=== PATIENT | male | born 1960 | race Caucasian/White ===

== ENCOUNTER 2017-03-17 11:57 | Inpatient (IN) | payer MEDICAID ==
[2017-03-17] MEDS ORDERED: NS 1,000 ML IV ONE ×2 (12:13→13:08)
--- NOTE | 2017-03-17 12:27 | EDPHY ---
HPI/HX/ROS/PE/MDM Narrative: CHIEF COMPLAINT: Elevated WBC HPI: The patient is a 57 y/o male arriving via EMS from [facility] due to an elevated white blood cell count. He has no complaints. He has a history of a prior TBI, alcohol abuse, hypertension, and baseline weakness. He is nonverbal on assessment, but able to communicate somewhat with gestures and nodding his head to yes/no questions. This appears to be his baseline per [facility] paperwork and staff report to EMS. He does not appear to complain of pain anywhere. Accompanying lab work shows WBC of 24. REVIEW OF SYSTEMS: Unable to obtain due to patient's difficulty communicating. PMH: TBI, encephalopathy, alcohol abuse, COPD, GERD, heart failure, weakness and atrophy, hyperlipidemia, hypertension, cognitive communication deficit. Medical records reviewed including [facility] transfer paperwork. SOCIAL HISTORY: Lives at [facility]. Not employed. History of alcohol abuse. PHYSICAL EXAM: General:Patient is alert, cachectic and very thin, in no acute distress. BP 88/ 78. Head: Band-aid on scalp ENT:Eyes are normal to inspection. ENT inspection shows very dry mucous membranes. Neck: Normal inspection. Full range of motion. Respiratory:No respiratory distress. Breath sounds normal bilaterally. Cardiovascular: Regular rate and rhythm. Strong peripheral pulses. Normal cap refill. Abdomen:The abdomen is nontender to palpation. There are no peritoneal signs. Back: Normal to inspection. No tenderness to palpation. Skin: Normal color. No rash. Warm and dry. Extremities: Normal appearance. Full range of motion. Neuro: Alert, difficult to asses orientation. Can nod yes and no to questions. Moving all extremities equally. ED Course: IV established. Labs drawn and UA ordered. Chest x-ray ordered. 1L IV NS administered for dehydration. Labs show WBC 13.84 and a normal lactic acid. Other labs are pending. Chest x- ray shows some consolidation in the left base. 1350: Spoke with hospitalist service. Dr. Pérez accepts admission for failure to thrive. MDM: History is extremely limited on this patient as he is essentially nonverbal and arrives with almost no information. He clearly is dehydrated. He will require admission for further workup and IV rehydration at minimum. - Data Points Imaging Results: Imaging Impressions Chest X-Ray 03/17/17 12:13 Impression: 1. Left basilar pneumonia versus aspiration or atelectasis. 2. Subacute right 11th rib fracture. Imaging: I viewed and interpreted images myself Laboratory Results: Laboratory Results 03/17/17 12:28 03/17/17 12:28 03/17/17 03/17/17 03/17/17 12:28 12:28 12:28 WBC RBC Hgb Hct MCV MCH MCHC RDW Plt Count MPV Neut % (Auto) Lymph % (Auto) [place] % (Auto) Eos % (Auto) Baso % (Auto) Nucleat RBC Rel Count Absolute Neuts (auto) Absolute Lymphs (auto) Absolute Monos (auto) Absolute Eos (auto) Absolute Basos (auto) Absolute Nucleated RBC Immature Gran % Immature Gran # VBG Lactic Acid Sodium 140 mEq/L mEq/L (134-144) Potassium 4.1 mEq/L mEq/L (3.5-5.2) Chloride 101 mEq/L mEq/L (97-110) Carbon Dioxide 27 mEq/l mEq/l (22-31) Anion Gap 12 mEq/L mEq/L (8-16) BUN 16 mg/dL mg/dL (7-23) Creatinine 0.6 mg/dL L mg/dL (0.7-1.3) Estimated GFR > 60 Glucose 101 mg/dL H mg/dL (70-100) Calcium 9.3 mg/dL mg/dL (8.5-10.4) Total Bilirubin 0.5 mg/dL mg/dL (0.1-1.4) Conjugated Bilirubin 0.3 mg/dL mg/dL (0.0-0.5) Unconjugated Bilirubin 0.2 mg/dL mg/dL (0.0-1.1) AST 22 IU/L IU/L (17-59) ALT 30 IU/L IU/L (21-72) Alkaline Phosphatase 124 IU/L IU/L (38-126) Total Protein 6.1 g/dL L g/dL (6.3-8.2) Albumin 3.5 g/dL g/dL (3.5-5.0) Urine Color RAFAEL Urine Appearance HAZY Urine pH 5.0 (5.0-7.5) Ur Specific [place]ard > 1.035 H (1.002-1.030) Urine Protein 1+ H (NEGATIVE) Urine Ketones NEGATIVE (NEGATIVE) Urine Blood NEGATIVE (NEGATIVE) Urine Nitrate NEGATIVE (NEGATIVE) Urine Bilirubin NEGATIVE (NEGATIVE) Urine Urobilinogen 4.0 EU H EU (0.2-1.0) Ur Leukocyte Esterase NEGATIVE (NEGATIVE) Urine RBC 5-10 /hpf H /hpf (0-3) Urine WBC 1-3 /hpf /hpf (0-3) Ur Epithelial Cells NONE SEEN /lpf /lpf (NONE-1+) Urine Mucus 4+ /lpf H /lpf (NONE-1+) Urine Glucose NEGATIVE (NEGATIVE) 03/17/17 03/17/17 12:28 12:28 WBC 13.84 10^3/uL H 10^3/uL (3.80-9.50) RBC 4.95 10^6/uL 10^6/uL (4.40-6.38) Hgb 14.9 g/dL g/dL (13.7-17.5) Hct 44.9 % % (40.0-51.0) MCV 90.7 fL fL (81.5-99.8) MCH 30.1 pg pg (27.9-34.1) MCHC 33.2 g/dL g/dL (32.4-36.7) RDW 13.9 % % (11.5-15.2) Plt Count 435 10^3/uL H 10^3/uL (150-400) MPV 10.8 fL fL (8.7-11.7) Neut % (Auto) 83.2 % H % (39.3-74.2) Lymph % (Auto) 9.4 % L % (15.0-45.0) [place] % (Auto) 6.4 % % (4.5-13.0) Eos % (Auto) 0.5 % L % (0.6-7.6) Baso % (Auto) 0.1 % L % (0.3-1.7) Nucleat RBC Rel Count 0.0 % % (0.0-0.2) Absolute Neuts (auto) 11.51 10^3/uL H 10^3/uL (1.70-6.50) Absolute Lymphs (auto) 1.30 10^3/uL 10^3/uL (1.00-3.00) Absolute Monos (auto) 0.89 10^3/uL H 10^3/uL (0.30-0.80) Absolute Eos (auto) 0.07 10^3/uL 10^3/uL (0.03-0.40) Absolute Basos (auto) 0.02 10^3/uL 10^3/uL (0.02-0.10) Absolute Nucleated RBC 0.00 10^3/uL 10^3/uL (0-0.01) Immature Gran % 0.4 % % (0.0-1.1) Immature Gran # 0.05 10^3/uL 10^3/uL (0.00-0.10) VBG Lactic Acid 2.1 mmol/L mmol/L (0.7-2.1) Sodium Potassium Chloride Carbon Dioxide Anion Gap BUN Creatinine Estimated GFR Glucose Calcium Total Bilirubin Conjugated Bilirubin Unconjugated Bilirubin AST ALT Alkaline Phosphatase Total Protein Albumin Urine Color Urine Appearance Urine pH Ur Specific Willard Urine Protein Urine Ketones Urine Blood Urine Nitrate Urine Bilirubin Urine Urobilinogen Ur Leukocyte Esterase Urine RBC Urine WBC Ur Epithelial Cells Urine Mucus Urine Glucose Medications Given: Discontinued Medications Sodium Chloride (Ns) 1,000 mls @ 0 mls/hr IV EDNOW ONE; Wide Open PRN Reason: Protocol Stop: 03/17/17 12:14 Last Admin: 03/17/17 12:13 Dose: 1,000 mls Sodium Chloride (Ns) 1,000 mls @ 0 mls/hr IV EDNOW ONE; Wide Open PRN Reason: Protocol Stop: 03/17/17 13:09 Last Admin: 03/17/17 13:37 Dose: 1,000 mls General Initial Vital Signs: Initial Vital Signs Temperature (C) 36.6 C 03/17/17 12:08 Heart Rate 90 03/17/17 12:08 Respiratory Rate 16 03/17/17 12:08 Blood Pressure 88/78 L 03/17/17 12:08 O2 Sat (%) 97 03/17/17 12:08 O2 Delivery Mode Room Air Allergies/Adverse Reactions: No Known Allergies Allergy (Unverified 03/17/17 12:06) Home Medications: Medication Instructions Recorded Acetaminophen [Tylenol 325mg (*)] 650 mg PO Q4HRS PRN 03/17/17 Aspirin [Aspirin 81mg (*)] 81 mg PO DAILY 03/17/17 Atorvastatin Calcium [Lipitor 40 40 mg PO HS 03/17/17 mg (*)] Escitalopram Oxalate [Lexapro] 5 mg PO DAILY 03/17/17 Famotidine [Pepcid 20 MG (*)] 20 mg PO HS 03/17/17 LORazepam [Ativan (*)] 0.5 mg PO Q6HRS PRN 03/17/17 Loperamide HCl [Imodium 2 mg (*)] 2 mg PO PRN PRN 03/17/17 Loratadine [Claritin 10 mg] 10 mg PO DAILY PRN 03/17/17 Metoprolol Succinate Xr [Toprol Xl 12.5 mg PO DAILY 03/17/17 25 mg (*)] Ondansetron Odt [Zofran Odt 4 mg 4 mg PO Q8HRS PRN 03/17/17 (*)] Tears/Dextran 70/Hypromellose 1 drop EACHEYE Q4HRS PRN 03/17/17 [Natural Balance Tears (*)] Thiamine HCl [Vitamin B-1 100mg 100 mg PO DAILY 03/17/17 (OTC)] traMADol [Ultram 50 mg (*)] 50 mg PO TID 03/17/17 traZODone [traZODONE 50MG (*)] 25 mg PO HS PRN 03/17/17 Departure - Departure Disposition: [facility] Acute Clinical Impression: Dehydration Failure to thrive Qualifiers: Failure to thrive age range: in adult Qualified Code(s): R62.7 - Adult failure to thrive Condition: Fair Report Scribed for: Davin Levin Report Scribed by: Reyna Rodrigez Date of Report: 03/17/17 Time of Report: 12:27 Physician Review and Approval Statement: Portions of this note were transcribed by an ED scribe. I personally performed the history, physical exam, and medical decision making; and confirm the accuracy of the information in the transcribed note.
[2017-03-17 12:34] LABS: % IMMATURE GRANULYOCYTES 0.4 % (0.0-1.1); ABSOLUTE IMMATURE GRANULOCYTES 0.05 10^3/uL (0.00-0.10); ADD DIFF? NO; ADD MORPH? NO; ADD SCAN? NO; ATYPICAL LYMPHOCYTE FLAG 0 (0-99); FRAGMENT RBC FLAG 0 (0-99); HEMATOCRIT 44.9 % (40.0-51.0); HEMOGLOBIN 14.9 g/dL (13.7-17.5); LEFT SHIFT FLG 0 (0-99); LIPEMIA HEMOLYSIS FLAG 80 (0-99); MEAN CELL HEMOGLOBIN 30.1 pg (27.9-34.1); MEAN CELL HEMOGLOBIN CONCENTR. 33.2 g/dL (32.4-36.7); MEAN CELL VOLUME 90.7 fL (81.5-99.8); MEAN PLATELET VOLUME 10.8 fL (8.7-11.7); PLATELET CLUMPS FLAG 10 (0-99); PLATELET COUNT 435 10^3/uL (150-400); RED BLOOD CELL COUNT 4.95 10^6/uL (4.40-6.38); RED CELL DISTRIBUTION WIDTH 13.9 % (11.5-15.2)
[2017-03-17 12:59] LABS: ANION GAP 12 mEq/L (8-16); CALCIUM 9.3 mg/dL (8.5-10.4); CARBON DIOXIDE 27 mEq/l (22-31); CHLORIDE 101 mEq/L (97-110); CREATININE 0.6 mg/dL (0.7-1.3); GLOMERULAR FILTRATION RATE > 60; GLUCOSE 101 mg/dL (70-100); POTASSIUM 4.1 mEq/L (3.5-5.2); SODIUM 140 mEq/L (134-144)
[2017-03-17 13:17] LABS: COLOR AMBER; LEUKOCYTE ESTERASE,URINE NEGATIVE (NEGATIVE); NITRITE,URINE NEGATIVE (NEGATIVE)
[2017-03-17 13:22] LABS: MUCUS 4+ /lpf (NONE-1+)
[2017-03-17 13:31] LABS: LACGHOST ORDER
[2017-03-17 13:44] LABS: ALBUMIN 3.5 g/dL (3.5-5.0); BILIRUBIN,TOTAL 0.5 mg/dL (0.1-1.4); BILIRUBIN-CONJUGATED 0.3 mg/dL (0.0-0.5); BILIRUBIN-UNCONJUGATED 0.2 mg/dL (0.0-1.1); TOTAL PROTEIN 6.1 g/dL (6.3-8.2)
[2017-03-17] MEDS ORDERED: ONDANSETRON 4 MG/2 ML VIAL IVP PRN (15:07)
[2017-03-17] MEDS ORDERED: ACETAMINOPHEN 325 MG TAB PO PRN (15:07)
[2017-03-17] MEDS ORDERED: MAGNESIUM HYDROXIDE 30 ML UDCUP PO PRN (15:07)
[2017-03-17] MEDS ORDERED: PROTOCOL MAGNESIUM 1 DOSE IV PRN (15:07)
[2017-03-17] MEDS ORDERED: PROTOCOL POTASSIUM 1 DOSE MISC PRN (15:07)
[2017-03-17] MEDS ORDERED: LACTULOSE 20 GM/30 ML UDCUP PO PRN (15:07)
[2017-03-17] MEDS ORDERED: ONDANSETRON DISINTEGRATING 4 MG TAB PO PRN (15:07)
[2017-03-17] MEDS ORDERED: PROTOCOL CALCIUM 1 DOSE IV PRN (15:07)
[2017-03-17] MEDS ORDERED: ALBUTEROL 3 ML DEYVIAL IH PRN (15:07)
[2017-03-17] MEDS ORDERED: PROTOCOL K PHOSPHATE 1 DOSE IV PRN (15:07)
[2017-03-17] MEDS ORDERED: LORazepam 2 MG/ML INJ IVP PRN (15:07)
[2017-03-17] MEDS ORDERED: BISACODYL 10 MG SUPP PR PRN (15:07)
[2017-03-17] MEDS ORDERED: POLYETHYLENE GLYCOL 3350 17 GM PKT PO PRN (15:07)
[2017-03-17] MEDS ORDERED: TEARS/DEXTRAN 70/HYPROMELLOSE 15 ML OPHT.BTL EACHEYE PRN (15:15)
[2017-03-17] MEDS ORDERED: NS W/ 20 KCl/L 1,000 ML IV SCH (15:15)
[2017-03-17] MEDS ORDERED: traZODone 50 MG TAB PO PRN (15:15)
[2017-03-17] MEDS ORDERED: LOPERAMIDE HCL 2 MG CAP PO PRN (15:15)
--- NOTE | 2017-03-17 15:49 | GHP ---
[f rep st] HISTORY AND PHYSICAL DATE OF ADMISSION: 03/17/2017 CHIEF COMPLAINT: Weakness and elevated white count. HISTORY OF PRESENT ILLNESS: This is a 57-year-old, nonverbal but interactive male who is sent in [facility] because of an elevated white count. There is no other history available and the rima iyer himself cannot provide any meaningful history. Though he is alert and interactive, he is mildl y combative. Does not at this time, interact in written communication in a meaningful fashion and ca nnot write why he is here and what care we are to provide. Records have come from [facility] and include a diagnosis of encephalopathy, alcohol abuse by history, history of traumatic brain injury, c hronic obstructive pulmonary disease, gastroesophageal reflux disease, heart failure, which is unspec ified in type, muscle weakness generalized, hyperlipidemia and essential hypertension. That is the t otal extent of the history that we have on this gentleman. As stated, the gentleman is alert, he is interactive but he cannot speak in a meaningful fashion and when asked to write his communication, he simply wrote that I am stupid. PAST MEDICAL HISTORY: History is as noted above. There are no records located in [place] and I am at this time, searching [facility] for further records. His PCP is listed as Dr. Tunde Romero who is th e care provider at [facility]. ALLERGIES: None. PAST SURGICAL HISTORY: Are unknown. REVIEW OF SYSTEMS: Negative except as noted in the HPI. The patient himself cannot give any meaning ful past history. FAMILY HISTORY: None available. SOCIAL HISTORY: Not available. PHYSICAL EXAMINATION: GENERAL: This is an alert, interactive gentleman who appears in distress and in very poor medical condition. VITAL SIGNS: He is hypotensive initially at 88/78 with a heart rate of 90, respirations 16, nonlabored, and 97% saturation on room air and afebrile. He was given a L o f normal saline and his blood pressure improved in the emergency department to 102/62. HEENT: Shows a significant remote scalp deformity, presumably related to remote trauma. That area of the scalp i s well healed. There is a very significant depression in the upper right side of his scalp. On the skin on the right side of his scalp there is also an abrasion which a bandage has been applied. His mouth shows very significant dental caries and periodontal disease. He has teeth but none of them ar e functional teeth. The upper teeth are all down to the gumline, and the lower teeth have very advan jenn periodontal disease. There are no active signs of abscess, swelling or bleeding noted. Posterio r oropharynx is very slightly red but shows no exudate. The tongue is red. It is covered but again does not show signs of infection and appears to move well. He has very significant temporal wasting also noted. CHEST WALL: Shows overall muscle wasting. Ribs are very prominent consistent with cach exia. There is no inspiratory splinting. Lungs are clear without wheezing or rales, although the br eath sounds are quite distant. HEART: Has a regular rate and rhythm. Sinus rhythm on the monitor t o my reading. Singular S1, S2. No murmur or gallop is appreciated. JVD is not elevated, appears to be at this time, normal post 1 L of normal saline. The anterior chest does show a SPEECH PROFESSOR shunt which is confirmed on his chest x-ray. ABDOMEN: Quite thin. Normal bowel sounds. No masses, tenderness, o rganomegaly. EXTREMITIES: Thin with muscle wasting. No edema or cyanosis. RECTAL: Showed a leti l rectal tone. Normal size prostate. No stool was available for evaluation. : Testicles and peni s appear normal without lesions. SPINE: The back reveals a stage II sacral decubitus ulceration. LABORATORY: WBC is elevated at 13,000 with a slight left shift of 83% neutrophils, hemoglobin normal at 15. His lactate is normal at 16. Chemistry panel shows normal albumin at 3.5, procalcitonin is pending. Renal function is normal with a creatinine of 0.6. Urinalysis is negative for leukocyte es terase, showing 5-10 RBCs and 1-3 WBCs, 4+ mucus and a culture was not indicated. Chest x-ray, to my reading, shows hyperinflation. Evidence of a SPEECH PROFESSOR shunt is clear. There is finding s of a sternotomy with sternal wires present. The lungs are otherwise clear except for hyperinflatio n. The heart appears of normal size. There is no active cardiopulmonary disease seen. ASSESSMENT: 1. Sepsis with hypotension, leukocytosis and a left shift with a normal lactate level. The exact et iology of sepsis may be related simply to hypovolemia and dehydration. Although possibility of infec tion either respiratory or urinary is entertained. Urinalysis would indicate that it is unlikely to be of urinary source. Other possibilities could be the decubitus ulceration on his sacrum. 2. Cachexia with very significant muscle wasting. Despite his very advanced muscle wasting his albu min is normal at 35 with a just slightly low total protein of 6.1. Renal function appears normal and his liver function is also normal. Thus, the exact etiology of his wasting is not evident from a la boratory evaluation. 3. Cachexia and muscle wasting. Historically, the gentleman has a video swallowing evaluation from September of 2015 in this facility. There, it showed he had silent aspiration of thin liquids and thicke katy liquids. At [facility], the gentleman is on a dietary plan, in which he is eating orally of a mechanical soft textured diet with honey-thickened liquids. He is to receive supplements daily. It would seem that if aspiration were a problem I would see something on his chest x-ray. So it may be that caloric consumption is the issue for this gentleman. He is certainly difficult to interact and communicate with, and it is unclear to me his level of understanding of verbal communication. I hav e attempted written communication but that it has been unsuccessful. Thus, I think the calorie count s and a dietary consult will be absolutely necessary here. CODE STATUS: His code status is full code per the records, and the gentleman does have a MOLST in [facility] he indicates he wants a full resuscitation but no artificial nutrition by tube. This MOLST was s igned in September 07, 2015. DEEP VENOUS THROMBOSIS PROPHYLAXIS: Will be with subcu Lovenox. TIME: This admission required 65 minutes. BILLING: The gentleman will be admitted to inpatient status. It would be helpful to find out if the gentleman has a guardian and who is making his decisions. That information is not listed in the inf ormation from [facility]. /[id number]/MODL
[2017-03-17] MEDS: traMADol 50 MG TAB PO SCH ×2 (16:57→21:49)
[2017-03-17 19:01] LABS: INR 1.03 (0.83-1.16); PROTIME(PATIENT) 13.4 SEC (12.0-15.0)
[2017-03-17] MEDS: ATORVASTATIN CALCIUM 40 MG TAB PO SCH (21:49)
[2017-03-17] MEDS: FAMOTIDINE 20 MG TAB PO SCH (21:49)
[2017-03-17] MEDS: SENNOSIDES/DOCUSATE SODIUM TAB PO SCH (21:49)
[2017-03-18 04:36] LABS: IONIZED CALCIUM 1.17 MMOL/L (1.12-1.30)
[2017-03-18 04:39] LABS: % IMMATURE GRANULYOCYTES 0.3 % (0.0-1.1); ABSOLUTE IMMATURE GRANULOCYTES 0.04 10^3/uL (0.00-0.10); ADD DIFF? NO; ADD MORPH? NO; ADD SCAN? NO; ATYPICAL LYMPHOCYTE FLAG 0 (0-99); FRAGMENT RBC FLAG 0 (0-99); HEMATOCRIT 42.5 % (40.0-51.0); HEMOGLOBIN 14.1 g/dL (13.7-17.5); LEFT SHIFT FLG 0 (0-99); LIPEMIA HEMOLYSIS FLAG 80 (0-99); MEAN CELL HEMOGLOBIN 30.3 pg (27.9-34.1); MEAN CELL HEMOGLOBIN CONCENTR. 33.2 g/dL (32.4-36.7); MEAN CELL VOLUME 91.4 fL (81.5-99.8); MEAN PLATELET VOLUME 10.4 fL (8.7-11.7); PLATELET CLUMPS FLAG 10 (0-99); PLATELET COUNT 463 10^3/uL (150-400); RED BLOOD CELL COUNT 4.65 10^6/uL (4.40-6.38); RED CELL DISTRIBUTION WIDTH 13.7 % (11.5-15.2)
[2017-03-18 04:59] LABS: ANION GAP 9 mEq/L (8-16); CARBON DIOXIDE 26 mEq/l (22-31); CHLORIDE 104 mEq/L (97-110); CREATININE 0.5 mg/dL (0.7-1.3); GLOMERULAR FILTRATION RATE > 60; GLUCOSE 91 mg/dL (70-100); MAGNESIUM 1.9 mg/dL (1.6-2.3); POTASSIUM 3.9 mEq/L (3.5-5.2); SODIUM 139 mEq/L (134-144)
[2017-03-18] MEDS: ASPIRIN 81 MG CHEWABLE TAB PO SCH (07:34)
[2017-03-18] MEDS: THIAMINE HCL 100 MG TAB PO SCH (07:35)
[2017-03-18] MEDS: ESCITALOPRAM OXALATE 10 MG TAB PO SCH (07:36)
[2017-03-18] MEDS: SENNOSIDES/DOCUSATE SODIUM TAB PO SCH ×2 (07:39→21:04)
[2017-03-18] MEDS: METOPROLOL SUCCINATE XR 25 MG TAB PO SCH (07:39)
[2017-03-18] MEDS: MULTIVITAMINS 1 EACH TAB PO SCH (07:39)
[2017-03-18] MEDS: ENOXAPARIN 40 MG/0.4 ML SYR SC SCH (07:40)
--- NOTE | 2017-03-18 08:36 | WOCRNPDOC ---
WOCRN Advanced Assessment Note - Skin Integrity Problem, Advanced Assess Sacrum Pressure Injury Dressing Type: Allevyn Life Exudate Amount: None Exudate Characteristic(s): None Integumentary Issue Intervention: Dressing Applied, Dressing Initialed & Dated, Hydrogel Applied Sam Wound Tissue: Blanching, Erythema, Denuded (along distal aspect of sacrum extending onto coccyx) Sam Wound Swelling: Mild Wound Bed Color: Red, Yellow Wound Bed Constitution: Smooth Tissue (non-granulating, partial-thickness in upper sacrum and lower left sacrum), Adhered Slough (in lower medial right sacral wound) Site Odor: None Site Measurement - Head-to-Toe Length X Width X Depth (cm): Lower R sacrum: 1cmx1.9cmx slough. Lower L sacrum: 0.5cmx0.6cmx0.1cm. Upper medial sacrum: 0.8cmx0.5cmx0.1cm Pressure Injury Stage: Stage 2 (Upper medial sacrum and lower left sacrum), Unstageable (lower right sacrum) Pressure Injury Present on Admit: Yes (documented in H&P upon admission) Skin Integrity Problem Comment: Three discrete pressure injuries noted on the sacrum. On the upper medial sacrum, there is a healing wound that is presently partial-thickness in appearance. Currently the apperance is consistent w/ a stage 2 pressure injury; no previous record of this patient's injuries, so I am uncertain of any previous staging. On the lower, medial sacrum there are 2 pressure injuries directly adjacent to each other. On the right side is a wound w/ 100% adhered slough, presently an unstageable pressure injury. On the left side is a small, partial-thickness wound, apperance consistent w/ stage 2 pressure injury. There is thin, fragile skin throughout the sam-wound. Sluggish blanching erythema noted throughout. Hydrogel and hydrocolloid dressing applied over slough-filled wound to initiate autolysis of necrotic tissue in lower sacral wound, and remaining wounds covered w/ hydrogel and Allevyn Life sacral dressing. Pressure relieving interventions initiated immediately, including turns side to side q2, protective dressing, and P500 low air loss bed. Report given to senior systems analyst Nina. Wound RN will follow up with patient on Tuesday 03/20.
[2017-03-18] MEDS ORDERED: CETIRIZINE 10 MG TAB PO PRN (09:00)
--- NOTE | 2017-03-18 09:33 | HOSPPROG ---
Hospitalist Progress Note Assessment/Plan: no complaints but no meaningful communication. The patient attempted to strike me during my evaluation. - Failure to thrive of an unclear etiology. - Leukocytosis: This is the reason the gentleman was sent in is possible this is secondary to his severe dental disease. He has very advanced periodontal disease and no meaningful teeth and should have full dental extraction. I am investigating this matter with case management as to whether it is possible or not. - Cachexia with normal protein and albumin. - Overall we have no meaningful history for this gentleman. Records are being sought at this time and possibilities for treatment Arb investigated. plan:- Search for records from [facility] and other facilities. - Investigate dental care - continue to attempt to interact with the gentleman and obtain adequate nutrition. - Calorie counts Subjective: Patient is alert but I have no meaningful communication with him. Objective: Vital Signs Temp Pulse Resp BP Pulse Ox 36.4 C 79 20 134/87 H 98 03/18/17 08:00 03/18/17 08:00 03/18/17 08:00 03/18/17 08:00 03/18/17 08:00 Laboratory Results 03/18/17 04:30 03/18/17 04:30 03/17/17 03/18/17 03/19/17 05:59 05:59 05:59 Intake Total 1650 Output Total 300 Balance 1350 PT 13.4 SEC (12.0-15.0) 03/17/17 18:35 INR 1.03 (0.83-1.16) 03/17/17 18:35 Laboratory Tests 03/17/17 03/17/17 03/17/17 12:28 12:28 12:28 WBC 13.84 H VBG Lactic Acid 2.1 Total Protein 6.1 L Procalcitonin TSH 03/17/17 03/17/17 03/17/17 14:15 14:29 18:35 WBC VBG Lactic Acid 1.6 Total Protein Procalcitonin 0.32 H TSH 1.540 03/18/17 04:30 WBC 14.39 H VBG Lactic Acid Total Protein Procalcitonin TSH White count elevated with an elevated procalcitonin suggesting bacterial infection of an unclear source currently. - Time Spent With Patient Time Spent with Patient: greater than 35 minutes Time Spent with Patient: Greater than 35 minutes spent on this patients care, greater than 50% of time spent counseling, educating, and coordinating care regarding the above mentioned plan. - Pending Discharge Pending Discharge Within 24 Hours: No Pending Discharge Within 48 Hours: No - Physical Exam Constitutional: chronically ill appearing, cachectic Eyes: PERRL, anicteric sclera, other ( Scalp deformity is noted. The abrasion on the right frontal scalp is healing well) Ears, Nose, Mouth, Throat: moist mucous membranes, other ( severe periodontal disease no buccal or oral mucosal lesions) Cardiovascular: regular rate and rhythym, no murmur, rub, or gallop Respiratory: no respiratory distress, no rales or rhonchi, clear to auscultation , reduced air movement Gastrointestinal: normoactive bowel sounds, soft, non-tender abdomen, no palpable masses Genitourinary: no bladder fullness Skin: warm Musculoskeletal: generalized weakness Psychiatric: agitated ICD10 Worksheet Patient Problems: Problems Problem Status Onset Dehydration Acute Failure to thrive Acute
[2017-03-18] MEDS ORDERED: POTASSIUM CL 10 MEQ TAB PO ONE (09:45)
[2017-03-18] MEDS: traMADol 50 MG TAB PO SCH ×2 (09:54→16:29)
--- NOTE | 2017-03-18 17:35 | ASMTCMCOM ---
CM Note CM Note Notes: Pt lives at [facility], JULIA called several times to discuss pt's baseline per MD request. May need SNF before returning to [facility], JULIA w/f. Date Signed: 03/18/2017 05:35 PM Electronically Signed By:Henrietta Hayes RN
[2017-03-18] MEDS ORDERED: fentaNYL 12 MCG PATCH TD SCH (17:45)
[2017-03-18] MEDS: NICOTINE 21 MG/24 HR PATCH TD SCH (18:18)
[2017-03-18 18:19] LABS: POTASSIUM 4.4 mEq/L (3.5-5.2)
[2017-03-18] MEDS: HYDROmorphONE/DILAUDID 1 MG/ML INJ IVP PRN (19:40)
[2017-03-18] MEDS: ATORVASTATIN CALCIUM 40 MG TAB PO SCH (21:04)
[2017-03-18] MEDS: FAMOTIDINE 20 MG TAB PO SCH (21:04)
[2017-03-19] MEDS: HYDROmorphONE/DILAUDID 1 MG/ML INJ IVP PRN ×2 (00:16→17:27)
[2017-03-19] MEDS: traMADol 50 MG TAB PO SCH ×4 (00:18→20:43)
[2017-03-19 04:39] LABS: IONIZED CALCIUM 1.14 MMOL/L (1.12-1.30)
[2017-03-19 05:21] LABS: ANION GAP 9 mEq/L (8-16); CALCIUM 8.9 mg/dL (8.5-10.4); CARBON DIOXIDE 26 mEq/l (22-31); CHLORIDE 102 mEq/L (97-110); CREATININE 0.5 mg/dL (0.7-1.3); GLOMERULAR FILTRATION RATE > 60; GLUCOSE 64 mg/dL (70-100); MAGNESIUM 1.9 mg/dL (1.6-2.3); SODIUM 137 mEq/L (134-144)
[2017-03-19 05:23] LABS: % IMMATURE GRANULYOCYTES 0.2 % (0.0-1.1); ABSOLUTE IMMATURE GRANULOCYTES 0.02 10^3/uL (0.00-0.10); ADD DIFF? NO; ADD MORPH? NO; ADD SCAN? NO; ATYPICAL LYMPHOCYTE FLAG 20 (0-99); FRAGMENT RBC FLAG 0 (0-99); HEMATOCRIT 41.9 % (40.0-51.0); HEMOGLOBIN 13.7 g/dL (13.7-17.5); LEFT SHIFT FLG 0 (0-99); LIPEMIA HEMOLYSIS FLAG 80 (0-99); MEAN CELL HEMOGLOBIN 29.5 pg (27.9-34.1); MEAN CELL HEMOGLOBIN CONCENTR. 32.7 g/dL (32.4-36.7); MEAN CELL VOLUME 90.3 fL (81.5-99.8); MEAN PLATELET VOLUME 11.1 fL (8.7-11.7); PLATELET CLUMPS FLAG 0 (0-99); PLATELET COUNT 485 10^3/uL (150-400); RED BLOOD CELL COUNT 4.64 10^6/uL (4.40-6.38); RED CELL DISTRIBUTION WIDTH 13.5 % (11.5-15.2)
[2017-03-19] MEDS: ESCITALOPRAM OXALATE 10 MG TAB PO SCH (09:15)
[2017-03-19] MEDS: METOPROLOL SUCCINATE XR 25 MG TAB PO SCH (09:15)
[2017-03-19] MEDS: MULTIVITAMINS 1 EACH TAB PO SCH (09:16)
[2017-03-19] MEDS: THIAMINE HCL 100 MG TAB PO SCH (09:16)
[2017-03-19] MEDS: SENNOSIDES/DOCUSATE SODIUM TAB PO SCH ×2 (09:16→21:23)
[2017-03-19] MEDS: ENOXAPARIN 40 MG/0.4 ML SYR SC SCH (09:17)
[2017-03-19] MEDS: NICOTINE 21 MG/24 HR PATCH TD SCH (09:17)
[2017-03-19] MEDS: ASPIRIN 81 MG CHEWABLE TAB PO SCH (09:23)
[2017-03-19] MEDS: LORazepam 0.5 MG TAB PO PRN (11:33)
--- NOTE | 2017-03-19 16:28 | HOSPPROG ---
Hospitalist Progress Note Assessment/Plan: no complaints but no meaningful communication. The patient attempted to strike me during my evaluation. - Failure to thrive of an unclear etiology. -encephalopathy: CT scan today is unchanged from previous description. He is probably at his baseline. Neurology consult appreciated. Discussed with Dr Elisabeth Rosado and CT review by myself. There was a question if the CORN GRINDER shunt was functioning. Discussed with neurology who feels the shunt does not need to be investigated further by neurosurgery. - Leukocytosis: This is the reason the gentleman was sent in is possible this is secondary to his severe dental disease. He has very advanced periodontal disease and no meaningful teeth and should have full dental extraction. I am investigating this matter with case management as to whether it is possible or not. - Cachexia with normal protein and albumin. - Overall we have no meaningful history for this gentleman. Records are being sought at this time and possibilities for treatment Arb investigated. [place] review shows he was admitted approx 2 years ago to [facility]. Mental status is described as approximately the same as today. He is likely very difficult to manage, probably chronically is difficult to feed and obtain adequate nutrition. Case discussed with Neurosurgery. After Neurology discussion will not investigate the CORN GRINDER shunt question further plan:- The only records are in [place]. [facility] from SNF - Investigate dental care - continue to attempt to interact with the gentleman and obtain adequate nutrition. - Calorie counts Time: 50 minutes Subjective: No meaningful interaction. He is alert, does not communicate meaningfully. he tried to hit me while I examined him. Objective: Vital Signs Temp Pulse Resp BP Pulse Ox 36.5 C 67 16 107/73 97 03/19/17 16:00 03/19/17 16:00 03/19/17 16:00 03/19/17 16:00 03/19/17 16:00 Laboratory Results 03/19/17 04:30 03/19/17 04:30 03/18/17 03/19/17 03/20/17 05:59 05:59 05:59 Intake Total 1650 580 Output Total 300 555 100 Balance 1350 25 -100 PT 13.4 SEC (12.0-15.0) 03/17/17 18:35 INR 1.03 (0.83-1.16) 03/17/17 18:35 - Time Spent With Patient Time Spent with Patient: greater than 35 minutes Time Spent with Patient: Greater than 35 minutes spent on this patients care, greater than 50% of time spent counseling, educating, and coordinating care regarding the above mentioned plan. - Pending Discharge Pending Discharge Within 24 Hours: No Pending Discharge Within 48 Hours: No - Physical Exam Constitutional: no apparent distress, chronically ill appearing, cachectic Eyes: PERRL, anicteric sclera Ears, Nose, Mouth, Throat: moist mucous membranes, poor dentition, other Cardiovascular: regular rate and rhythym, no murmur, rub, or gallop Respiratory: no respiratory distress, no rales or rhonchi, clear to auscultation Gastrointestinal: normoactive bowel sounds, soft, non-tender abdomen, no palpable masses Genitourinary: no bladder fullness Skin: warm Musculoskeletal: generalized weakness Neurologic: CN II-XII Intact (grossly symetrical), other Psychiatric: agitated, other (aggressive) ICD10 Worksheet Patient Problems: Problems Problem Status Onset Failure to thrive Acute Dehydration Acute
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
[2017-03-19] MEDS: ATORVASTATIN CALCIUM 40 MG TAB PO SCH (20:41)
[2017-03-19] MEDS: FAMOTIDINE 20 MG TAB PO SCH (20:45)
[2017-03-19 22:12] LABS: POTASSIUM 3.9 mEq/L (3.3-5.0)
[2017-03-19] MEDS ORDERED: POTASSIUM CL 10 MEQ TAB PO ONE (23:51)
[2017-03-20] MEDS: SENNOSIDES/DOCUSATE SODIUM TAB PO SCH (09:17)
[2017-03-20] MEDS: ESCITALOPRAM OXALATE 10 MG TAB PO SCH (09:17)
[2017-03-20] MEDS: NICOTINE 21 MG/24 HR PATCH TD SCH (09:18)
[2017-03-20] MEDS: MULTIVITAMINS 1 EACH TAB PO SCH (09:18)
[2017-03-20] MEDS: ASPIRIN 81 MG CHEWABLE TAB PO SCH (09:19)
[2017-03-20] MEDS: ENOXAPARIN 40 MG/0.4 ML SYR SC SCH (09:21)
[2017-03-20] MEDS: traMADol 50 MG TAB PO SCH ×2 (09:32→16:42)
[2017-03-20] MEDS: LORazepam 0.5 MG TAB PO PRN (09:41)
[2017-03-20] MEDS: THIAMINE HCL 100 MG TAB PO SCH (09:41)
[2017-03-20] MEDS: METOPROLOL SUCCINATE XR 25 MG TAB PO SCH (09:49)
[2017-03-20 10:34] VITALS: BP 108/74; PULSE 81; RESP 16; TEMP 96.7; O2SAT 98
--- NOTE | 2017-03-20 11:47 | HOSPPROG ---
Hospitalist Progress Note Assessment/Plan: #chronic encephalopathy: neuro evaluated and suspect chronic dementia. CTH shows HORIZONTAL DRILL OPERATOR shunt, no hydrocephalus. Case d/w NSGY, no further eval of HORIZONTAL DRILL OPERATOR #Leukocytosis: possible aspiration LLL opacity, procalcitonin elevated. UA negative Will complete course of Augmentin #Sepsis: resolved. UA negative. small opacity on CXR. Leukocytosis resolved. Afebrile. Lactate NL. Blood cx NGTD. Has not received #Peridontal disease: will need dental care outpatient. No e/o abscess #Protein caloric malnutrition: needs supplemental shake #Diet: pureed #Disp: CM determining if can go back to [place] today Subjective: nonverbal. Min cough per RN Objective: Vital Signs Temp Pulse Resp BP Pulse Ox 35.9 C L 81 16 108/74 98 03/20/17 08:00 03/20/17 08:00 03/20/17 08:00 03/20/17 08:00 03/20/17 08:00 Laboratory Results 03/19/17 04:30 03/19/17 21:10 03/19/17 03/20/17 03/21/17 05:59 05:59 05:59 Intake Total 580 590 Output Total 555 100 100 Balance 25 490 -100 PT 13.4 SEC (12.0-15.0) 03/17/17 18:35 INR 1.03 (0.83-1.16) 03/17/17 18:35 - Physical Exam Constitutional: chronically ill appearing, cachectic Eyes: PERRL Ears, Nose, Mouth, Throat: poor dentition (dental caries. No abscess or ulcers) Cardiovascular: regular rate and rhythym Respiratory: other (clear anteriorly) Gastrointestinal: normoactive bowel sounds Genitourinary: no bladder fullness Skin: warm Musculoskeletal: generalized weakness Neurologic: other (answers questions by nodding head. Denied pain, SOB) Psychiatric: encephalopathic ICD10 Worksheet Patient Problems: Problems Problem Status Onset Dehydration Acute Failure to thrive Acute
[2017-03-20] MEDS ORDERED: AMOXICILLIN/CLAVULANATE POT 875/125 MG TAB PO SCH (15:30)
--- NOTE | 2017-03-20 15:37 | WOCRNPDOC ---
WOCRN Advanced Assessment Note - Skin Integrity Problem, Advanced Assess Sacrum Pressure Injury Dressing Type: Allevyn Life, Hydrocolloid (on R lower sacral wound) Dressing Description: Intact Exudate Amount: Scant Exudate Color: Reddish/Yellow Exudate Characteristic(s): Serosanguinous Integumentary Issue Intervention: Dressing Changed, Visualized Under Dressing, Hydrogel Applied Ora Wound Tissue: Blanching, Erythema, Thin Ora Wound Swelling: None Wound Bed Color: Red, Yellow Wound Bed Constitution: Smooth Tissue (in L lower sacral wound), Adhered Slough (in R lower sacral wound) Wound Edges: Well Defined Pressure Injury Stage: Stage 2, Unstageable Skin Integrity Problem Comment: Peeled back existing dressing, which per library manager [place] was changed today. Removed hydrocolloid over R lower sacral wound, and wound bed continues to be slough-filled and unstageable. There does appear to be some loosening of this slough along the lateral margin, and the plan is to continue autolysis w/ hydrogel and hydrocolloid. Adjacent stage 2 remains partial-thickness, discrete, no change. Upper medial sacral pressure injury, which is also a healing stage 2, is beginning to re-epithelialize along margins. Ora-wound tissue remains thin and fragile in appearance. Despite pressure-relieving interventions by nursing staff, patient still prefers to be positioned on his back w/ HOB raised. Nursing is aware of this, and will continue to do their best to off-load pressure to his sacrum. Wound RN will follow up with patient on Thursday 03/22.
--- NOTE | 2017-03-20 16:40 | PDIAF ---
- Diagnosis Diagnosis: leukocytosis Code Status: Full Code - Medication Management Discharge Medications: Medications to Continue on Transfer Acetaminophen [Tylenol 325mg (*)] 650 mg PO Q4HRS PRN 03/17/17 [Last Taken Unknown] Atorvastatin Calcium [Lipitor 40 mg (*)] 40 mg PO HS 03/17/17 [Last Taken Unknown] Escitalopram Oxalate [Lexapro] 5 mg PO DAILY 03/17/17 [Last Taken Unknown] Famotidine [Pepcid 20 MG (*)] 20 mg PO HS 03/17/17 [Last Taken Unknown] LORazepam [Ativan (*)] 0.5 mg PO Q6HRS PRN 03/17/17 [Last Taken Unknown] Loperamide HCl [Imodium 2 mg (*)] 2 mg PO PRN PRN 03/17/17 [Last Taken Unknown] Loratadine [Claritin 10 mg] 10 mg PO DAILY PRN 03/17/17 [Last Taken Unknown] Metoprolol Succinate Xr [Toprol Xl 25 mg (*)] 12.5 mg PO DAILY 03/17/17 [Last Taken Unknown] Ondansetron Odt [Zofran Odt 4 mg (*)] 4 mg PO Q8HRS PRN 03/17/17 [Last Taken Unknown] Tears/Dextran 70/Hypromellose [Natural Balance Tears (*)] 1 drop EACHEYE Q4HRS PRN 03/17/17 [Last Taken Unknown] Thiamine HCl [Vitamin B-1] 100 mg PO DAILY 03/17/17 [Last Taken Unknown] traMADol [Ultram 50 mg (*)] 50 mg PO TID 03/17/17 [Last Taken Unknown] traZODone [traZODONE 50MG (*)] 25 mg PO HS PRN 03/17/17 [Last Taken Unknown] Amoxicillin/Clavulanate Pot [Augmentin 875 MG TAB (*)] 875 mg PO BID #14 tab [Last Taken Unknown] Aspirin [Aspirin 81mg (*)] 81 mg PO DAILY tab.chew 03/20/17 [Last Taken Unknown ] Discharge Medications: Refer to the Discharge Home Medication list for PRN reason. - Orders Services needed: Registered Nurse, Certified Pug Machine Operator, Physical Therapy Diet Texture: Dysphagia 1 - Pureed, Honey Thick Liquids, Meds Whole w/Liquids - Follow Up Care Current Providers and Referrals: Patient,NotPresent [Unknown] - As per Instructions
--- NOTE | 2017-03-20 17:14 | ASMTCMCOM ---
CM Note CM Note Notes: Oscar let Enriqueta from [facility] know today that Pt. ready for d/c. Janeer sent d/c paperwork via [employer] and also provided a hard copy envelope packet for Emiliano from [place] transport to bring to facility due to late d/c on a Thursday. RN tried to call report at multiple phone numbers. No one available. Today Pt. d/c'ed back to [facility] where he lives. Date Signed: 03/20/2017 05:13 PM Electronically Signed By:Soila Laureano LCSW
--- NOTE | 2017-03-20 17:40 | GDS ---
[f rep st] DISCHARGE SUMMARY DISCHARGE DIAGNOSES: 1. Leukocytosis. 2. Stage II, unstageable sacrum ulcers present at admission. 3. Dental caries. 4. Failure to thrive. 5. Sepsis. 6. Protein-calorie malnutrition. 7. Chronic encephalopathy secondary to traumatic brain injury with STRATEGIC ALLIANCES MANAGER shunt. HISTORY OF PRESENT ILLNESS: A 57-year-old male with history of chronic encephalopathy secondary to t raumatic brain injury with STRATEGIC ALLIANCES MANAGER shunt, who was transferred from [facility] because of an elevated wh ite count. Patient is nonverbal, thus, cannot provide meaningful history. Other history includes [place] PD, hyperlipidemia, and generalized muscle weakness. Patient was afebrile. In the emergency room, h e was hypotensive at 88/78 with a heart rate of 90. HOSPITAL COURSE BY PROBLEM: 1. Sepsis: Patient was admitted with an elevated white count and mild hypotension. He had a normal lactate. He remained afebrile while here. Negative blood cultures. His procalcitonin was mildly e levated with possible left lower lobe pneumonia. It appears that he is an aspirator. Will treat wit h Augmentin. Patient also has extensive dental caries; however, there is no evidence of abscess or p eriodontal infection. Leukocytosis has resolved. Blood pressure is stable. 2. Dental caries: Patient would benefit from outpatient dental care. 3. Chronic encephalopathy/dementia from TBI. Patient was evaluated by Neurology for question of acu te neurologic injury. CT was negative for acute abnormality, and STRATEGIC ALLIANCES MANAGER shunt was in place without hydro cephalus. Suspect that he is at his baseline with his chronic dementia. He is able to nod yes and n o when I question him. 4. Protein-calorie malnutrition. Patient's albumin is not significantly low, but would benefit from Ensure supplementation. DIET: Pureed. DISPOSITION: Patient will discharge back to [facility] to resume normal cares. /[id number]/MODL
--- NOTE | 2017-03-20 17:54 | ASDISCHSUM ---
Discharge Information Plan Status:SNF Medically Cleared to Leave: Discharge Date:03/20/2017 05:09 PM D/C Disposition:[facility] Facility ADT D/C Disposition:[facility] Facility Projected Discharge Date:03/20/2017 11:00 AM Transportation at D/C:Wheelchair Van Discharge Delay Reason: Follow-Up Date:03/20/2017 11:00 AM Discharge Slot: Final Diagnosis: Placement Information Referral Type:*Usp/SNF Referral ID:[id number] Provider Name:Markie Gifford/MELVIN Valenzuela Address 1:[address] Phone Number: Address 2: Fax Number: [facility]:[place] Selection Factors: State:[place] Patient Contact Information Contact Name:VADIM Relationship:Mother Address: Work Phone: City: [facility] Phone: [facility] Code: Email: Financial Information Financial Class: Primary Plan Desc:[employer] [place] [place] Primary Plan Number:[id number] Secondary Plan Desc: Secondary Plan Number: Assessment Information [facility] CM Progress Note CM Note CM Note Notes: Pt lives at [facility], called several times to discuss pt's baseline per MD request. May need SNF before returning to [facility] [place] w/f. Date Signed: 03/18/2017 05:35 PM Electronically Signed By:Henrietta Hayes RN [facility] CM Progress Note CM Note CM Note Notes: Oscar Robison from [facility] know today that Pt. ready for d/c. Oscar sent d/c paperwork via [employer] and also provided a hard copy envelope packet for Emiliano from [facility] transport to bring to facility due to late d/c on a Thursday. RN tried to call report at multiple phone numbers. No one available. Today Pt. d/c'ed back to [facility] where he lives. Date Signed: 03/20/2017 05:13 PM Electronically Signed By:Soila Laureano LCSW Intervention Information Intervention Type:*Incorrect Registration Date of Service:03/17/2017 10:28 AM Patient Type:Observation Staff Member:LANA Gage, Nayeli Hours: Discipline: Severity: Comment:
== END 2017-03-20 17:09 | DRG 872 ==
LOC: EDUNIT# → OBSVTOIN 15:07 → F3E 15:41
PROVIDERS: ADMIT Internal Medicine Pulmonary Disease; ATTEND Internal Medicine Pulmonary Disease
DX: A41.9 Sepsis, unspecified organism (principal); R62.7 Adult failure to thrive; L89.152 Pressure ulcer of sacral region, stage 2; L89.150 Pressure ulcer of sacral region, unstageable; R64 Cachexia; E46 Unspecified protein-calorie malnutrition; S06.9X9S Unspecified intracranial injury with loss of consciousness of unspecified duration, sequela; F02.81 Dementia in other diseases classified elsewhere, unspecified severity, with behavioral disturbance; R41.841 Cognitive communication deficit; E86.0 Dehydration; K02.9 Dental caries, unspecified; K05.6 Periodontal disease, unspecified; J44.9 Chronic obstructive pulmonary disease, unspecified; K21.9 Gastro-esophageal reflux disease without esophagitis; I50.9 Heart failure, unspecified; M62.81 Muscle weakness (generalized); E78.5 Hyperlipidemia, unspecified; I11.0 Hypertensive heart disease with heart failure; Z98.2 Presence of cerebrospinal fluid drainage device
CPT/HCPCS: 92610-GN; 97161-GP; 97165-GO; J1170; J1650

== ENCOUNTER 2017-03-29 17:24 | Inpatient (IN) | payer MEDICAID ==
[2017-03-29] MEDS ORDERED: ETOMIDATE 40 MG/20 ML INJ IVP ONE (17:27)
[2017-03-29] MEDS ORDERED: SUCCINYLCHOLINE CHLORIDE 200 MG/10 ML VIAL IVP ONE (17:27)
[2017-03-29] MEDS ORDERED: NS 1,000 ML IV ONE ×2 (17:42)
[2017-03-29 17:47] LABS: ADD DIFF? YES; ADD MORPH? NO; ADD SCAN? YES; ATYPICAL LYMPHOCYTE FLAG 0 (0-99); FRAGMENT RBC FLAG 0 (0-99); HEMATOCRIT 50.6 % (40.0-51.0); HEMOGLOBIN 16.3 g/dL (13.7-17.5); LEFT SHIFT FLG 70 (0-99); LIPEMIA HEMOLYSIS FLAG 80 (0-99); MEAN CELL HEMOGLOBIN 30.1 pg (27.9-34.1); MEAN CELL HEMOGLOBIN CONCENTR. 32.2 g/dL (32.4-36.7); MEAN CELL VOLUME 93.5 fL (81.5-99.8); MEAN PLATELET VOLUME 9.8 fL (8.7-11.7); PLATELET CLUMPS FLAG 0 (0-99); PLATELET COUNT 648 10^3/uL (150-400); RED BLOOD CELL COUNT 5.41 10^6/uL (4.40-6.38); RED CELL DISTRIBUTION WIDTH 14.6 % (11.5-15.2)
[2017-03-29] MEDS ORDERED: IOPAMIDOL (ISOVUE 370) 100 ML BTL IV ONE (17:49)
[2017-03-29 17:57] LABS: BASE EXCESS -7.9 mEq/L (-2.5-2.5); BICARBONATE 20 mEq/L (22-26); MEASURED OXYGEN SATURATION 83 % (92-95); PCO2 49 mmHg (34-38); PO2 58 mmHg (65-75); TCO2 21 mEq/L (23-27)
[2017-03-29 17:58] LABS: SIMV YES
[2017-03-29 17:59] LABS: ANION GAP 15 mEq/L (8-16); CALCIUM 10.4 mg/dL (8.5-10.4); CARBON DIOXIDE 25 mEq/l (22-31); CHLORIDE 99 mEq/L (97-110); GLOMERULAR FILTRATION RATE > 60; GLUCOSE 146 mg/dL (70-100); POTASSIUM 5.2 mEq/L (3.5-5.2); SODIUM 139 mEq/L (134-144)
[2017-03-29 17:59] LABS: O2 CONCENTRATIION 100 % (0-100); P/F RATIO 58 RATIO; PRESSURE SUPPORT 7
[2017-03-29 18:00] LABS: APTT 27.2 SEC (23.0-38.0); INR 0.98 (0.83-1.16); PROTIME(PATIENT) 12.9 SEC (12.0-15.0)
[2017-03-29 18:11] LABS: TROPONIN I 0.028 ng/mL (0.000-0.034)
[2017-03-29 18:20] LABS: ECHINOCYTES 1+
[2017-03-29 18:22] LABS: ACANTHOCYTES 2+; ALANINE AMINOTRANSFERASE 61 IU/L (21-72); ALBUMIN 3.9 g/dL (3.5-5.0); ALKALINE PHOSPHATASE 130 IU/L (38-126); ASPARTATE AMINOTRANSFERASE 47 IU/L (17-59); BILIRUBIN,TOTAL 0.9 mg/dL (0.1-1.4); BILIRUBIN-CONJUGATED 0.2 mg/dL (0.0-0.5); BILIRUBIN-UNCONJUGATED 0.7 mg/dL (0.0-1.1); LARGE PLATELETS PRESENT; SCHISTOCYTES 1+; TOTAL PROTEIN 6.9 g/dL (6.3-8.2)
[2017-03-29 18:23] LABS: PLATELET ESTIMATE INCREASED (ADEQ)
[2017-03-29] MEDS ORDERED: ERTAPENEM 1 GM in NS 100 ML IV ONE (18:28)
--- NOTE | 2017-03-29 18:33 | CPEKG ---
Heart Rate: 109 RR Interval: 550 QRSD Interval: 104 QT Interval: 356 QTC Interval: 480 QRS [place]: 0 T Wave [place]: -77 EKG Severity - ABNORMAL ECG - EKG Impression: ATRIAL FIBRILLATION, V-RATE 99-124 EKG Impression: INDETERMINATE QRS AXIS EKG Impression: INFERIOR INFARCT, AGE INDETERMINATE EKG Impression: BORDERLINE PROLONGED QT INTERVAL Electronically Signed By: Tunde Blanco 29-Mar-2017 22:53:56
--- NOTE | 2017-03-29 18:34 | EDPHY ---
H & P Time Seen by Provider: 03/29/17 17:42 HPI/ROS: CHIEF COMPLAINT: Hypoxemic respiratory arrest HISTORY OF PRESENT ILLNESS: The patient is brought into the emergency department by paramedics after a hypoxemic respiratory arrest. Details surrounding the event are somewhat uncertain. The patient is nonverbal. At baseline the patient reportedly is ambulatory and is able to leave his snf facility to smoke. The patient had a recent admission to the hospital March 17 for leukocytosis and presumed sepsis. The patient was discharged with Augmentin for possible aspiration pneumonia. The patient is unable to provide any additional history today. The patient's oxygen saturation was in the mid 70s according to paramedics and stays in that range upon arrival. The patient arrives with a MOST form which specifies full COR resuscitation. REVIEW OF SYSTEMS: A comprehensive 10 point review of systems is unobtainable side from altered mental status - Medical/Surgical History Hx Asthma: No Hx Chronic Respiratory Disease: Yes Hx Diabetes: No Hx Cardiac Disease: Yes Hx Renal Disease: No Hx Cirrhosis: No Hx Alcoholism: Yes Hx HIV/AIDS: No Hx Splenectomy or Spleen Trauma: No Other PMH: TBI, COPD, reflux, CHF, HTN - Social History Smoking Status: Unknown if ever smoked - Physical Exam Exam: General Appearance: Thin male, cachectic, tachypneic Eyes: Pupils equal and round no pallor or injection ENT, Mouth: Mucous membranes Respiratory: Rhonchorous breath sounds left lung base Cardiovascular: Tachycardic, irregular Gastrointestinal: Abdomen is soft and nontender, no masses, bowel sounds normal Neurological: A&O, normal motor function, normal sensory exam, normal cranial nerves Skin: Withdrawals to pain bilateral upper lower extremity Musculoskeletal: Kyphotic Extremities: No gross deformity Allergies/Adverse Reactions: No Known Allergies Allergy (Unverified 03/17/17 12:06) Home Medications: Medication Instructions Recorded Acetaminophen [Tylenol 325mg (*)] 650 mg PO Q4HRS PRN 03/17/17 Atorvastatin Calcium [Lipitor 40 40 mg PO HS 03/17/17 mg (*)] Escitalopram Oxalate [Lexapro] 5 mg PO DAILY 03/17/17 Famotidine [Pepcid 20 MG (*)] 20 mg PO HS 03/17/17 LORazepam [Ativan (*)] 0.5 mg PO Q6HRS PRN 09/12/17 Loperamide HCl [Imodium 2 mg (*)] 2 mg PO PRN PRN 03/17/17 Loratadine [Claritin 10 mg] 10 mg PO DAILY PRN 03/17/17 Metoprolol Succinate Xr [Toprol Xl 12.5 mg PO DAILY 03/17/17 25 mg (*)] Ondansetron Odt [Zofran Odt 4 mg 4 mg PO Q8HRS PRN 03/17/17 (*)] Tears/Dextran 70/Hypromellose 1 drop EACHEYE Q4HRS PRN 03/17/17 [Natural Balance Tears (*)] Thiamine HCl [Vitamin B-1] 100 mg PO DAILY 03/17/17 traMADol [Ultram 50 mg (*)] 50 mg PO TID 03/17/17 traZODone [traZODONE 50MG (*)] 25 mg PO HS PRN 03/17/17 Amoxicillin/Clavulanate Pot 875 mg PO BID #14 tab 03/20/17 [Augmentin 875 MG TAB (*)] Aspirin [Aspirin 81mg (*)] 81 mg PO DAILY tab.chew 03/20/17 Medical Decision Making - Diagnostics EKG Interpretation: EKG: Complete interpretation has been separately recorded in the [facility] archive. Summary impression: Atrial fibrillation, nonspecific ST T wave changes noted. No evidence of ST segment elevation Imaging Results: Imaging Impressions Chest X-Ray 03/29/17 17:31 Impression: 1. New well positioned ET tube. 2. Aspiration left lung versus pneumonia or asymmetric pulmonary edema. Chest/Thorax CTA 03/29/17 17:47 Impression: 1. Extensive mucous plugging throughout the left upper and left lower lobes, resulting in partial collapse of the left lung and multifocal airspace consolidation throughout the left lung. 2. No acute thrombopulmonary embolism. 3. Hyperinflation of the right lung with minimal patchy bronchiolitis throughout the right upper lobe and right lower lobe. Findings discussed with emergency department physician, Tunde Blanco on March 29, [address] 03/29/17 17:47 Impression: 1. No acute intracranial hemorrhage, subdural hematoma, or evidence of ischemia. 2. Old multifocal encephalomalacia involving the bifrontal, right temporal, right parietal, and right cerebellar hemisphere are unchanged since two weeks prior. 3. Right transparietal ventriculoperitoneal shunt remains in good position. No hydrocephalus has developed. Findings discussed with emergency department physician, Tunde Blanco MD on March 29, 2017 at 1815 hours. Procedures: Procedure: Limited transthoracic echocardiogram. A limited transthoracic echocardiogram was performed and interpreted by myself for respiratory arrest, hypotension and hypoxemia. Limited transthoracic echocardiogram: The pericardium was visualized and found to be negative for pericardial fluid. Cardiac activity was present, prominent RV function was noted. The study was negative for pericardial effusion. The study demonstrated grossly normal cardiac activity. Procedure: RSI Intubation Indication for the procedure was respiratory arrest. The patient was preoxygenated with 100% oxygen by face mask. The patient was sedated with etomidate and paralyzed with succinylcholine. The patient was orally endotracheally intubated under direct visualization with a 7.5 ETT. Tracheal intubation was confirmed with misting on the tube; breath sounds were auscultated equally bilaterally; appropriate color change with [employer] End Tidal CO2 detector, capnography waveform is appropriate, oxygen saturation after procedure is 75%. Chest X-ray shows ETT in good position. The procedure was performed by myself. ED Course/Re-evaluation: The patient presents to the ED with acute hypoxemia. The patient's room-air oxygen saturation 70% on bag-valve mask. The patient was intubated by myself without complication using a 7.5 ETT tube. Following intubation, the patient remained hypoxemic. A bedside ultrasound demonstrated no obvious pericardial effusion but the patient did have a prominent right ventricle. The patient was noted to have a normal i-STAT. He was taken for a stat CT scan of the head and CT angiogram of the chest. CT scan of the brain demonstrates no evidence of obvious hemorrhage. CT angiogram of the chest demonstrates no evidence of a pulmonary embolism but does demonstrate mucous plugging in the left lung. EKG demonstrates no evidence of arrhythmia or ischemia. Consultation was made with Dr. Jose Roberto Rodriguez from the Pulmonary Critical Care service who will come perform emergent bronchoscopy on the patient. Consultation is made with Dr. Jose F Velázquez from the hospitalist service. The patient is noted to have leukocytosis, hypoxemia and infiltrates on his chest x-ray. Blood cultures x2 have been obtained. The patient was started on a the Invanz. The patient is transferred to the intensive care unit with severe sepsis. A repeat lactate has not been done in the emergency department secondary to the requirement to perform emergent endoscopy. The patient's i-STAT potassium was noted to be elevated at 6.4 however serum potassium is noted to be normal. The patient's initial lactate is greater than 4. I declared septic shock. The patient did have a 30 milligram/kilogram bolus given in the emergency department. The patient had no hypotension following that bolus. The bolus was started and completed prior to the patient leaving the department. Differential Diagnosis: Differential diagnosis considered includes sepsis, severe sepsis, pulmonary embolism, pericardial effusion, pneumonia, pneumothorax Critical Care Time: Critical care time exclusive of procedures and exclusive of the PA's time was 45 minutes, performed by myself, Tunde Blanco MD. The patient presents the ED with an acute hypoxemic respiratory arrest. The patient required emergent intubation. He continued to have ongoing hypoxemia. A stat formal echocardiogram was obtained. Consultation was made with a our pulmonary critical care doctor. Consultation is made with the hospitalist service. - Data Points Laboratory Results: Laboratory Results 03/29/17 17:25 03/29/17 17:25 03/29/17 03/29/17 03/29/17 17:50 17:37 17:25 WBC RBC Hgb POC Hgb 17.0 gm/dL gm/dL (13.7-17.5) Hct POC Hct 50 % % (40-51) MCV MCH MCHC RDW Plt Count MPV Neut % (Auto) Lymph % (Auto) Anson % (Auto) Eos % (Auto) Baso % (Auto) Nucleat RBC Rel Count Absolute Neuts (auto) Absolute Lymphs (auto) Absolute Monos (auto) Absolute Eos (auto) Absolute Basos (auto) Absolute Nucleated RBC Immature Gran % Seg Neutrophils % Band Neutrophils % Lymphocytes % Monocytes % Immature Gran # Absolute Seg Neuts Absolute Band Neuts Absolute Lymphocytes Absolute Monocytes Platelet Estimate Large Platelets Echinocytes Acanthocytes (Spur) Schistocytes Smear Review By PT 12.9 SEC SEC (12.0-15.0) INR 0.98 (0.83-1.16) APTT 27.2 SEC SEC (23.0-38.0) Puncture Site RIGHT RADIAL Patient Temperature 37.0 DEGREES DEGREES pCO2 49 mmHg H mmHg (34-38) pO2 58 mmHg L mmHg (65-75) Total CO2 21 mEq/L L mEq/L (23-27) ABG pH 7.22 L (7.35-7.45) ABG PO2/FiO2 Ratio 58 RATIO RATIO ABG HCO3 20 mEq/L L mEq/L (22-26) ABG O2 Saturation 83 % L % (92-95) ABG Base Excess -7.9 mEq/L L mEq/L (-2.5-2.5) ABG Lactic Acid 4.2 mmol/L H mmol/L (0.5-1.6) O2 Concentration % 100 % % (0-100) Set Respiration Rate 20 SIMV YES Tidal Volume 500 PEEP 10 Pressure Support 7 POC Sodium 140 mEq/L mEq/L (134-144) Sodium POC Potassium 6.4 mEq/L H* mEq/L (3.3-5.0) Potassium POC Chloride 104 mEq/L mEq/L (97-110) Chloride Carbon Dioxide Anion Gap POC BUN 36 mg/dL H mg/dL (7-23) BUN Creatinine POC Creatinine 1.0 mg/dL mg/dL (0.7-1.3) Estimated GFR Glucose POC Glucose 145 mg/dL H mg/dL (70-100) Calcium Total Bilirubin Conjugated Bilirubin Unconjugated Bilirubin AST ALT Alkaline Phosphatase Troponin I NT-Pro-B Natriuret Pep Total Protein Albumin 03/29/17 03/29/17 17:25 17:25 WBC 37.68 10^3/uL H 10^3/uL (3.80-9.50) RBC 5.41 10^6/uL 10^6/uL (4.40-6.38) Hgb 16.3 g/dL g/dL (13.7-17.5) POC Hgb Hct 50.6 % % (40.0-51.0) POC Hct MCV 93.5 fL fL (81.5-99.8) MCH 30.1 pg pg (27.9-34.1) MCHC 32.2 g/dL L g/dL (32.4-36.7) RDW 14.6 % % (11.5-15.2) Plt Count 648 10^3/uL H 10^3/uL (150-400) MPV 9.8 fL fL (8.7-11.7) Neut % (Auto) Not Reported Lymph % (Auto) Not Reported Anson % (Auto) Not Reported Eos % (Auto) Not Reported Baso % (Auto) Not Reported Nucleat RBC Rel Count 0.0 % % (0.0-0.2) Absolute Neuts (auto) Not Reported Absolute Lymphs (auto) Not Reported Absolute Monos (auto) Not Reported Absolute Eos (auto) Not Reported Absolute Basos (auto) Not Reported Absolute Nucleated RBC 0.00 10^3/uL 10^3/uL (0-0.01) Immature Gran % Not Reported Seg Neutrophils % 71 % % Band Neutrophils % 22 % % Lymphocytes % 3 % % Monocytes % 4 % % Immature Gran # Not Reported Absolute Seg Neuts 26.75 10^/uL H 10^/uL (1.70-6.50) Absolute Band Neuts 8.29 10^3/uL H 10^3/uL (0.00-0.70) Absolute Lymphocytes 1.13 10^3/uL 10^3/uL (1.00-3.00) Absolute Monocytes 1.51 10^3/uL H 10^3/uL (0.30-0.80) Platelet Estimate INCREASED H (ADEQ) Large Platelets PRESENT H Echinocytes 1+ H Acanthocytes (Spur) 2+ H Schistocytes 1+ H Smear Review By Pending PT INR APTT Puncture Site Patient Temperature pCO2 pO2 Total CO2 ABG pH ABG PO2/FiO2 Ratio ABG HCO3 ABG O2 Saturation ABG Base Excess ABG Lactic Acid O2 Concentration % Set Respiration Rate SIMV Tidal Volume PEEP Pressure Support POC Sodium Sodium 139 mEq/L mEq/L (134-144) POC Potassium Potassium 5.2 mEq/L mEq/L (3.5-5.2) POC Chloride Chloride 99 mEq/L mEq/L (97-110) Carbon Dioxide 25 mEq/l mEq/l (22-31) Anion Gap 15 mEq/L mEq/L (8-16) POC BUN BUN 25 mg/dL H mg/dL (7-23) Creatinine 1.0 mg/dL mg/dL (0.7-1.3) POC Creatinine Estimated GFR > 60 Glucose 146 mg/dL H mg/dL (70-100) POC Glucose Calcium 10.4 mg/dL mg/dL (8.5-10.4) Total Bilirubin 0.9 mg/dL mg/dL (0.1-1.4) Conjugated Bilirubin 0.2 mg/dL mg/dL (0.0-0.5) Unconjugated Bilirubin 0.7 mg/dL mg/dL (0.0-1.1) AST 47 IU/L IU/L (17-59) ALT 61 IU/L IU/L (21-72) Alkaline Phosphatase 130 IU/L H IU/L (38-126) Troponin I 0.028 ng/mL ng/mL (0.000-0.034) NT-Pro-B Natriuret Pep 2270 pg/mL H pg/mL (0-125) Total Protein 6.9 g/dL g/dL (6.3-8.2) Albumin 3.9 g/dL g/dL (3.5-5.0) Point of Care Test Results: 03/29/17 17:37 POC Sodium 140 POC Potassium 6.4 H* POC Chloride 104 POC BUN 36 H POC Creatinine 1.0 POC Glucose 145 H Departure - Departure Disposition: [facility] Inpatient Acute Clinical Impression: Acute hypoxemic respiratory failure, Aspiration pneumonitis, Severe sepsis, Traumatic brain injury, Failure to thrive Condition: Critical
[2017-03-29 19:24] LABS: COLOR YELLOW; LEUKOCYTE ESTERASE,URINE NEGATIVE (NEGATIVE); NITRITE,URINE NEGATIVE (NEGATIVE)
[2017-03-29 19:58] LABS: HYALINE CASTS 15-25 /lpf (0-1); MUCUS TRACE /lpf (NONE-1+)
[2017-03-29] MEDS ORDERED: ALTEPLASE 2 MG VIAL IVP PRN (20:34)
[2017-03-29] MEDS: VANCOMYCIN HCL/NORMAL SALINE 250 ML IV SCH (20:45)
[2017-03-29] MEDS: MEROPENEM 1 GM in NS 100 ML IV SCH (21:11)
[2017-03-29] MEDS ORDERED: ACETAMINOPHEN 325 MG TAB PO PRN (21:38)
[2017-03-29] MEDS ORDERED: ONDANSETRON 4 MG/2 ML VIAL IVP PRN (21:38)
[2017-03-29] MEDS ORDERED: ONDANSETRON DISINTEGRATING 4 MG TAB PO PRN (21:38)
--- NOTE | 2017-03-29 21:47 | GPN ---
[f rep st] PROCEDURE NOTE PROCEDURE PERFORMED: Therapeutic bronchoscopy. REASON FOR PROCEDURE: Acute respiratory failure with severe mucous plugging on the left side. PROCEDURE NOTE: The procedure was performed in the patient's room in the intensive care unit. No in formed consent could be obtained. I tried to call the patient's mother but got no answer. Appropria te time-out was performed. N95 masks were worn. The procedure was not done in a negative pressure e nvironment as there is little risk for airborne respiratory infectious pathogens as the patient was r ecently in [facility] and has been living for quite some time at a long-term. The patient had previously been intubated in the emergency department. An adapter was placed on the end of the patient's endotracheal tube. The bronchoscope was passed through this adapter into the lo wer tracheobronchial tree bilaterally. The right side was relatively normal, with only modest secret ions which could easily be removed. The left side was almost totally obstructed with unusual dark dr ied secretions or possibly pieces of foreign body. The former is favored. This was associated with mucus and mucous plugging throughout the left side. Secretions were removed with suction and lavage. On a number of occasions, the bronchoscope needed to be removed from the endotracheal tube with the thick secretions attached. Some bronchial casts were noted as well. At the end of the procedure, t he airway was cleared of significant mucus and material and remained patent. There were no endobronc hial lesions. The mucosa was somewhat erythematous. Oxygen saturations came up during the procedure from the 80s into the low 90s on 100% FiO2. Blood pr essure and vital signs otherwise remained stable throughout the procedure. Cultures were obtained an d sent to the laboratory for Gram stain and aerobic analysis. Some of the thick mucus was sent to pa thology to try to determine if this represented only mucus or food or foreign body material. IMPRESSION: Large amount of mucous plugging on the left, resulting in almost total occlusion of the left side starting at the level of the mainstem bronchus. Secretions were successfully removed with suction and lavage as described above. Findings are consistent with pneumonia, probable aspiration. /[id number]/MODL
--- NOTE | 2017-03-29 21:52 | GCON ---
[f rep st] CONSULTATION PULMONARY CRITICAL CARE CONSULTATION DATE OF CONSULTATION: 03/29/2017 REASON FOR CONSULTATION: Acute respiratory failure, presumably secondary to aspiration pneumonia and mucus plugging. HISTORY OF PRESENT ILLNESS: The patient is a 57-year-old gentleman with multiple underlying medical problems. He has a history of a closed head injury/ TBI. He previously had a bone flap removed from the back of his head. This was never replaced. This has been associated with chronic encephalopathy and dementia. It is unknown when this injury occurred; however, by report it was present at least 2 years ago when he was admitted to [facility]. There is also a history of previous alcohol abuse, COPD, ongoing smoking, gastroesophageal reflux disease, diastolic dysfunction, cachexia, and failure to thrive, essential hypertension, and hyperlipidemia. The patient is a resident of [facility]. It is unknown to me how long he has been there. He was admitted to [facility] approximately 10 days ago for leukocytosis and presumed aspiration pneumonia. He was here for 3 days and discharged back to [facility] on Augmentin. Apparently, he was not particularly verbal, but was awake and interactive, which apparently is his baseline. At [facility], he was going outside to smoke by report. He was apparently found today unresponsive. It is unknown how long he was down. The paramedics were called. Saturations were in the 70s when they arrived, and had a difficult time improving this on transport. In the emergency department, initial saturations were in the 60s or 70s by report. He was intubated. A CT scan of the chest was done, which showed severe mucus plugging and infiltrate primarily on the left. The right lung is hyperexpanded. He was difficult to oxygenate. I was called by Dr. Blanco to urgently bronch the patient. This is dictated elsewhere. The patient's initial lactate was greater than 4. Initial blood pressure was low by report, however, I cannot find vital signs from the emergency department currently. The first reported blood pressure on [facility] is 104/63, with the next blood pressure being 74/50. The patient was placed on the ventilator at 100%. He was transferred to the intensive care unit where bronchoscopy was performed, with removal of a large amount of mucus totally obstructing the left side. The patient was unresponsive in the emergency department, unable to give any history. Other abnormalities included a leukocytosis of 37,000, thrombocytosis , mild respiratory acidosis, hyperkalemia at 6.4. Urinalysis was unremarkable for white cells. CT scan of the head showed no acute changes, with chronic changes unchanged from 10 days ago. These include encephalomalacia, evidence of the missing bone flap, and a BIOMASS [employer] shunt being in place without hydrocephalus. Cardiac echo showed only moderate pulmonary hypertension. This appeared to be secondary. Left side ejection fraction was normal. The patient did receive etomidate and succinylcholine for his intubation. This was done with a 7.5 mm endotracheal tube. The patient was given intravenous fluids per the sepsis protocol and started on antibiotics. The hospitalist service was contacted for admission. 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 MEDICATIONS: From [facility] include p.r.n. Tylenol, Lipitor, Lexapro, Ativan, trazodone, aspirin, Pepcid, p.r.n. Ativan, p.r.n. Imodium, loratadine p.r.n., metoprolol 12.5 mg daily, Zofran p.r.n., thiamine, tramadol t.i.d. He was recently on Augmentin. PAST SURGICAL HISTORY: Partial craniectomy, BIOMASS [employer] O[employer] shunt, probably others. ALLERGIES: None known. SOCIAL HISTORY: At [facility], continues to smoke. History of alcoholism. Full cor per his advance directives and MOST form. He has a mother with a 303 area code, who apparently is his medical power of assistant district attorney. FAMILY HISTORY: Unobtainable. REVIEW OF SYSTEMS: Unobtainable. PHYSICAL EXAMINATION: VITAL SIGNS: Blood pressure is 114/70, heart rate 115 and regular with sinus rhythm on the monitor. On 100% FIO2, saturations are 90% . The patient is afebrile. Respiratory rate is 20, set on the ventilator. GENERAL: Reveals a cachectic-appearing gentleman, who is unresponsive, on the ventilator. He is receiving no sedation. Intravenous fluids are being given. HEENT: Remarkable for small pupils, at approximately 2 mm, and not apparently responsive. There is no scleral icterus. An oral endotracheal tube is in place , breath sounds initially were almost absent on the left side. Breath sounds were distant on the right. There were no obvious rhonchi. Post bronchoscopy, breath sounds were significantly improved on the left side. HEART: Regular and tachycardic. A systolic murmur is present. P2 does appear to be increased. ABDOMEN: Scaphoid, tenderness cannot be assessed. Bowel sounds are present, but diminished. A Justin catheter is in place with good urine output. EXTREMITIES: Unremarkable for edema or obvious cords. NEUROLOGIC: Cannot currently be assessed, as the patient may still be partially paralyzed from his intubation. He does not withdraw currently, but apparently did withdraw to stimulation in the emergency department. LAB STUDIES: Radiologic studies are as outlined above. EKG on admission was read as atrial fibrillation, but that does not appear to be present on the monitor now. An inferior infarct, age indeterminate, was felt to be present and QT was borderline prolonged. White blood cell count is 37,000, hematocrit 50, platelets 648,000. PT and PTT on admission were normal. Blood gas on the ventilator showed a pH of 7.22, pCO2 49, and PO2 48. This is on 500, 20, and a PEEP of 10, and 100% FiO2. Post bronchoscopy blood gas will be drawn. Chemistry shows a sodium of 140, potassium of 6.4, BUN 36, creatinine 1.0, glucose 145, normal bilirubin and LFTs , normal troponin, a BNP of 2270, albumin of 3.9. Urinalysis was unremarkable. ASSESSMENT: 1. Acute respiratory failure. Presumably, this is secondary to aspiration pneumonia in a care home setting. This is associated with severe mucus plugging on the left side. This has been addressed by bronchoscopy, with mucus and plugs removed. Cultures have been sent. The patient has received ertapenem. This will be changed to meropenem and vancomycin going forward for now. 2. Sepsis. The patient presented with a lactate of 4.2. He was hypotensive, tachycardic, with an obvious pulmonary source. He responded to intravenous fluids. No central line has yet been placed. A peripherally inserted central catheter line will be requested and hopefully can be placed this evening. Blood pressure has normalized with fluid resuscitation. The patient is on on the sepsis protocol. 3. History of previous traumatic brain injury, craniectomy, ventriculoperitoneal shunt, encephalopathy and dementia. These issues have been present for a number years. Complete details are unknown. 4. Hyperkalemia. There is also evidence of hemoconcentration. Laboratory values will be repeated this evening after further hydration. 5. Failure to thrive, cachexia. 6. Chronic obstructive pulmonary disease, with ongoing tobacco abuse by report. 7. History of other medical problems as outlined above, including psychiatric disease, depression, systemic hypertension, etc. 8. Abnormal mental status. The patient is unresponsive but did receive medications for intubation in the emergency department. He may of had a prolonged down time prior to the arrival of the paramedics, and was significantly hypoxemic when they arrived. An anoxic insult cannot be excluded at this time. PLAN AND RECOMMENDATIONS: Aggressive supportive care and ventilatory support will be maintained. Meropenem and vancomycin will be given. Intravenous fluids will be continued. A PICC line will be requested. Laboratory, including lactate, will be followed. Sputum culture and pathology will be awaited. He is not requiring sedation or pain control currently. Neurologic status will be re-evaluated over the next 6-12 hours. He will be placed on the ventilatory sedation protocol if needed. Chest x-ray will be followed. Prognosis is guarded at this point in time. Anoxic injury cannot be excluded at this time. Based on his appearance, including cachexia, failure to thrive, and significant underlying neurologic and medical conditions, cor status will need to be readdressed during this hospitalization. /[id number]/MODL MTDD
[2017-03-29] MEDS ORDERED: SUCCINYLCHOLINE CHLORIDE*ANESTHESIA ONLY*200 MG/10 ML SYR IVP ONE (22:00)
[2017-03-29] MEDS ORDERED: ETOMIDATE 40 MG/20 ML INJ ONE (22:00)
[2017-03-29 22:14] LABS: BASE EXCESS -8.9 mEq/L (-2.5-2.5); BICARBONATE 19 mEq/L (22-26); MEASURED OXYGEN SATURATION 90 % (92-95); PCO2 49 mmHg (34-38); PO2 68 mmHg (65-75); TCO2 21 mEq/L (23-27)
[2017-03-29 22:15] LABS: O2 CONCENTRATIION 80 % (0-100); SIMV YES
[2017-03-29 22:16] LABS: END TIDAL CO2 33; P/F RATIO 85 RATIO; PATIENT RATE 24; PRESSURE SUPPORT 7
--- NOTE | 2017-03-29 22:57 | GHP ---
[f rep st] HISTORY AND PHYSICAL DATE OF ADMISSION: 03/29/2017 CHIEF COMPLAINT: Found down. HISTORY OF PRESENT ILLNESS: The patient is a 57-year-old white male who lives in a intermediate. He was found down in respiratory arrest and not moving. Resuscitation attempts were made in the field, but when he arrived in the ICU, he was still completely unresponsive. He did have a pulse but did n ot appear to be breathing. He was intubated immediately in the emergency department. He remained hy poxic even after intubation. A CT scan of the lungs showed extensive mucus plugging throughout the left lung, and he underwent bro nchoscopy in the ICU by Dr. Jose Roberto Rodriguez with copious amounts of mucus plugging removed. After this, his oxygen saturation improved significantly, and he was able to be ventilated. He curre ntly remains on a ventilator. He was completely unresponsive for some time after the intubation and bronchoscopy. At the time of my exam a couple of hours later, he was starting to move some of his li mbs and actually followed a few directions. He lives in a intermediate, and at baseline, he interacts with others but apparently does not talk. He was hospitalized here with weakness and an elevated white count just a couple of weeks ago. That was a 3-day hospitalization. At the present time, he is intubated and cannot talk to me. It is unclear exactly how long he was do wn at the intermediate. 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 He doshi s a ASSISTANT PRODUCE MANAGER shunt in place and encephalomalacia reported on previous head scans. His medication list suggests a history of depression, but I do not actually know his medical history. MEDICATION LIST: Appears to include aspirin, atorvastatin, Lexapro 5 mg, famotidine 20 mg daily, parth atadine 10 mg daily, metoprolol succinate 12.5 mg daily, ondansetron p.r.n., tramadol 50 mg t.i.d., t razodone 25 mg at bedtime. SOCIAL HISTORY: Unknown. FAMILY HISTORY: Patient noncommunicative, unknown. REVIEW OF SYSTEMS: Unobtainable. PHYSICAL EXAMINATION: VITAL SIGNS: On arrival in the emergency department, his blood pressure was 6 7/30, with a heart rate of 128 and oxygen saturation of 68%, despite having been intubated in the fie ld and being bag-ventilated. He continued to run hypoxic even on a ventilator with oxygen saturation in the 60s and 70s until undergoing bronchoscopy. GENERAL: He is an emaciated white man lying in bed, on a ventilator. He blinks his eyes but does no t make eye contact with me. He is diffusely moderately stiff when I try to move his arms and legs. He does blink his eyes when I say his name. NECK: No adenopathy. LUNGS: Mildly diminished breath sounds bilaterally, on a ventilator without obvious focal findings. HEART: Regular. ABDOMEN: Soft , nontender. I do appreciate bowel sounds. EXTREMITIES: No edema. SKIN: He has a 2 x 1 cm full s kin thickness ulceration midline on the sacrum. NEUROLOGIC: He is minimally responsive, as outlined above, but now responds to commands to squeeze my fingers and to move all his toes. Although he fol lows these commands, he only does so briefly, and I cannot get him to squeeze my fingers a second mey e. EYES: Pupils are pinpoint. HEAD: Normocephalic, atraumatic. MUSCULOSKELETAL: He has no obvio us joint effusions. DATABASE: His WBC is elevated at 37,000, hemoglobin 16, hematocrit 50, platelets 648,000. The WBC c ount is dramatically higher than 2 weeks ago; the platelets and the hemoglobin are moderately more el evated than a couple weeks ago. His electrolytes are significant for sodium 139, potassium 5.2, chlo ride 99, CO2 25, BUN 25, creatinine 1.0, glucose 146, AST and ALT are normal, albumin is 3.9. Urinal ysis is negative. ProBNP is 2270. Head CT scan shows encephalomalacia and a ASSISTANT PRODUCE MANAGER shunt; no acute abno rmality. A chest CT scan shows extensive mucus plugging in the left lung. Chest x-ray after intubat ion shows aspiration versus pneumonia in the left lung and a well-positioned ET tube. I have reviewe d the CT images and the chest x-ray images personally. IMPRESSION: 1. Respiratory arrest. This was apparently due to mucus plugging, which has now been treated bronch oscopically. He is now ventilating okay with a ventilator. Unclear how long he was hypoxic. When faiza santa arrived in the emergency department, his oxygen saturation was 68% while being bagged and intubated . 2. Altered mental status. At baseline, he has encephalopathy. He does seem to be regaining some fu nction and can follow some simple commands right now. This makes me hopeful that he will continue to improve throughout the night. 3. Leukocytosis with polycythemia. The leukocytosis is profound, presumably due to his acute recent anoxic event. Recheck in the morning. 4. Pneumonia, being treated with antibiotics per Dr. Rodriguez. 5. Decubitus ulcer. Wound consult has been ordered. /[id number]/MODL
[2017-03-29 23:45] LABS: ANION GAP 14 mEq/L (8-16); CARBON DIOXIDE 18 mEq/l (22-31); CHLORIDE 108 mEq/L (97-110); CREATININE 0.7 mg/dL (0.7-1.3); GLOMERULAR FILTRATION RATE > 60; GLUCOSE 155 mg/dL (70-100); SODIUM 140 mEq/L (134-144)
[2017-03-30] MEDS: ALBUTEROL 200 PUFFS/18 GM MDI IH SCH ×5 (00:05→12:21)
[2017-03-30] MEDS: PROPOFOL/EMULSION 100 ML IV SCH ×2 (02:19→09:33)
[2017-03-30] MEDS: NS 1,000 ML IV SCH ×3 (02:36→20:50)
[2017-03-30 05:19] LABS: ADD MORPH? NO; ADD SCAN? YES; ALANINE AMINOTRANSFERASE 42 IU/L (21-72); ALBUMIN 2.7 g/dL (3.5-5.0); ALKALINE PHOSPHATASE 90 IU/L (38-126); ANION GAP 12 mEq/L (8-16); ASPARTATE AMINOTRANSFERASE 37 IU/L (17-59); ATYPICAL LYMPHOCYTE FLAG 0 (0-99); BILIRUBIN,TOTAL 0.6 mg/dL (0.1-1.4); CALCIUM 9.4 mg/dL (8.5-10.4); CARBON DIOXIDE 19 mEq/l (22-31); CHLORIDE 110 mEq/L (97-110); CREATININE 0.7 mg/dL (0.7-1.3); FRAGMENT RBC FLAG 0 (0-99); GLOMERULAR FILTRATION RATE > 60; GLUCOSE 150 mg/dL (70-100); HEMATOCRIT 41.9 % (40.0-51.0); HEMOGLOBIN 13.5 g/dL (13.7-17.5); LIPEMIA HEMOLYSIS FLAG 80 (0-99); MEAN CELL HEMOGLOBIN 29.6 pg (27.9-34.1); MEAN CELL HEMOGLOBIN CONCENTR. 32.2 g/dL (32.4-36.7); MEAN CELL VOLUME 91.9 fL (81.5-99.8); MEAN PLATELET VOLUME 10.2 fL (8.7-11.7); PLATELET CLUMPS FLAG 0 (0-99); PLATELET COUNT 538 10^3/uL (150-400); POTASSIUM 4.5 mEq/L (3.5-5.2); RED BLOOD CELL COUNT 4.56 10^6/uL (4.40-6.38); RED CELL DISTRIBUTION WIDTH 14.7 % (11.5-15.2); SODIUM 141 mEq/L (134-144); TOTAL PROTEIN 5.2 g/dL (6.3-8.2)
[2017-03-30] MEDS: MEROPENEM 1 GM in NS 100 ML IV SCH ×3 (05:19→21:53)
[2017-03-30 05:23] LABS: LEFT SHIFT FLG 140 (0-99)
[2017-03-30 05:48] LABS: BICARBONATE 19 mEq/L (22-26); MEASURED OXYGEN SATURATION 96 % (92-95); PCO2 40 mmHg (34-38); PO2 92 mmHg (65-75); TCO2 20 mEq/L (23-27)
[2017-03-30 05:49] LABS: END TIDAL CO2 30; PATIENT RATE 28; SIMV YES
[2017-03-30 05:50] LABS: PRESSURE SUPPORT 7
[2017-03-30 06:15] LABS: ADD DIFF? YES; SCAN POSITIVE
[2017-03-30 06:18] LABS: PLATELET ESTIMATE INCREASED (ADEQ)
[2017-03-30] MEDS ORDERED: ENOXAPARIN 30 MG/0.3 ML SYR SC SCH (09:00)
[2017-03-30] MEDS ORDERED: SODIUM BICARBONATE 150 MEQ in D5W 1,000 ML IV SCH (09:30)
[2017-03-30] MEDS: fentaNYL/NACL 100 ML IV SCH ×2 (09:39→20:54)
--- NOTE | 2017-03-30 10:40 | ECHO ---
[email or web address] [address] [address] Main: [phone] Fax: Transthoracic Echocardiogram Name: GHAZALA MCDOWELL MR#: [id number] Study Date: 03/29/2017 Study Time: 06:20 PM Date of : 1960 Age: 57 year(s) Height: 175.3 cm (69 in.) Weight: 52.16 kg (115 lb.) BSA: 1.63 m2 Gender: Male Examination: Echo Indication: Respiratory Arrest Image Quality: Contrast: Requested by: Tunde Blanco BP: 104 mmHg/63 mmHg Heart Rate: Rhythm: Tachycardia Indication: Respiratory Arrest Procedure Staff Ordering Physician: SOFÍA Senior Marketing Data Analyst: Han Lewis Reading Physician: Arti Schulz Conclusions: Normal size left ventricle. Normal global systolic LV function (EF 65 %). Mildly to moderately dilated right ventricle. Mildly reduced RV function. The right atrium is mildly dilated. The pulmonary artery pressure is moderately increased. Moderate to severe tricuspid valve regurgitation. Measurements: Chambers Valvular Assessment AV/MV Valvular Assessment TV/PV Normal Normal Normal Name Value Range Name Value Range Name Value Range IVSd (2D): 0.9 cm (0.6 cm-1.1 AV Vmax: 1.06 m/s (1 m/s-1.7 TR Vmax: 3.23 mm/s ( - ) cm) m/s) TR PGmax: 42 mmHg ( - ) LVDd (2D): 3.8 cm (4.2 cm-5.9 AV maxP mmHg ( - ) syst. PAP: 52 mmHg ( - ) cm) LVOT Vmax: 1.02 m/s (0.7 m/s-1.1 LVDs (2D): 3.0 cm (2.1 cm-4 m/s) cm) MV E Vmax: 0.89 cm/s ( - ) LVPWd (2D): 0.9 cm (0.6 cm-1 MV A Vmax: 0.67 cm/s ( - ) cm) MV E/A: 1.33 ( - ) LVEF (2D): 65 (>=54 %) RVDd(2D): 3.3 cm (1.9 cm-3.8 cmmm) Continued Measurements: Chambers Valvular Assessment TV/PV Name Value Name Value LA Area: 15.6 cm2 CVP (est.): 10 LA Volume: 44 ml Patient: GHAZALA MCDOWELL Study Date: 03/29/2017 Page 1 of 2 06:20 PM LA Volume Index: 27.0 ml/m2 Findings: Left Ventricle: Normal size left ventricle. Normal global systolic LV function (EF 65 %). Right Ventricle: Mildly to moderately dilated right ventricle. Mildly reduced RV function. Left Atrium: The left atrium is normal in size. Right Atrium: The right atrium is mildly dilated. Mitral Valve: The mitral valve is normal in appearance and function. Aortic Valve: The aortic valve is normal in appearance and function. The aortic valve is tri-leaflet and functions normally. Tricuspid Valve: The tricuspid valve appears normal. The pulmonary artery pressure is moderately increased. Moderate to severe tricuspid valve regurgitation. Pulmonic Valve: The pulmonic valve is normal in appearance. Great Vessels: The aorta is normal. Pericardium: No pericardial effusion. This was an emergent pulmonary arrest echocardiogram. CT demonstrated no PE. (No Signature Object) Patient: GHAZALA MCDOWELL Study Date: 03/29/2017 Page 2 of 2 06:20 PM [id number]
[2017-03-30] MEDS: NICOTINE 21 MG/24 HR PATCH TD SCH (11:34)
[2017-03-30] MEDS: ENOXAPARIN 40 MG/0.4 ML SYR SC SCH (11:34)
[2017-03-30] MEDS: VANCOMYCIN HCL/NORMAL SALINE 250 ML IV SCH ×2 (11:35→20:55)
[2017-03-30] MEDS ORDERED: LIDOCAINE 2% JELLY 5 ML TUBE ONE ×2 (13:24→14:20)
[2017-03-30] MEDS ORDERED: NS 1,000 ML IV ONE (14:17)
--- NOTE | 2017-03-30 15:24 | PDINTPN ---
Production Control Scheduler Progress Note Assessment/Plan: Assessment/plan: 57 M with remote TBI, craniectomy without replacement of bone flap, and presumed COPD with ongoing smoking admitted from [facility] 03/29 with acute respiratory failure after being found down with a pulse. He had severe hypoxemia prior to and after intubation, and an emergent bronch revealed mucous plugging on the left. per staff electronic warfare officer he was also disheveled with poor hygiene and a stage II decub on his back. At baseline he is reportedly non-verbal, but does go outside to smoke regularly. * Acute respiratory failure with hypoxemia requiring intubation, likely from pneumonia though he was treated recently for aspiration pneumonia and was not on antibiotics. Since admission he developed a hyperchloremic metabolic acidosis , probably from NS resuscitation, though his lactate ac slightly to 4.8. His IVF were changed from NS to HCO3 for one liter and we will re-assess. Holding weans for now. CXR today with scattered infiltrates on left, HAIR OR BEAUTY SALON MANAGER shunt in place. Antibiotics include meropenem and vanco with a drop in his WBC from 37 to 27. * Septic shock- initial rise in lactate may have been related to initial event of hypoxemia and hypotension that responded to IVF without pressors. Recheck in AM and after HCO3 bolus today. * Skin breakdown prior to hospital. Wound care to evaluate * TBI with HAIR OR BEAUTY SALON MANAGER shunt- clinically stable. * COPD- hyperinflation on CXR- change albuterol Q4 scheduled to prn. May need spiriva after extubated. * HTN- currently stable, holding home meds. * Hyperkalemia- likely hemolyzed specimen * * critical care time 45 minutes Subjective: s/p bronchoscopy with large mucous plugs removed. Objective: Vital Signs Temp Pulse Resp BP Pulse Ox 38.2 C 96 28 H 80/51 L 100 03/30/17 12:00 03/30/17 13:00 03/30/17 13:00 03/30/17 13:00 03/30/17 13:00 Microbiology 03/29/17 19:47 - Final Sputum, Induced/Suctioned Laboratory Results 03/30/17 04:50 03/30/17 04:50 03/29/17 03/30/17 03/31/17 05:59 05:59 05:59 Intake Total 4195 Output Total 1725 170 Balance 2470 -170 PT 12.9 SEC (12.0-15.0) 03/29/17 17:25 INR 0.98 (0.83-1.16) 03/29/17 17:25 Physical Exam - Physical Exam General Appearance: obtunded EENT: PERRL/EOMI, ET tube Neck: supple Respiratory: lungs clear, normal breath sounds, decreased breath sounds, No respiratory distress Cardiac/Chest: regular rate, rhythm, No edema Abdomen: non-tender, soft, No distended Skin: normal color, warm/dry, No cyanosis Lymphatic: no adenopathy Extremities: No pedal edema Neuro/Psych: cognition abnormalities ICD10 Worksheet Patient Problems: Problems Problem Status Onset Acute hypoxemic respiratory failure Acute Aspiration pneumonitis Acute Failure to thrive Acute Severe sepsis Acute Traumatic brain injury Acute Dehydration Acute
[2017-03-30] MEDS ORDERED: ALBUTEROL HFA ANES ONLY 200 PUFFS/8.5 GM MDI IH PRN (15:25)
[2017-03-30] MEDS ORDERED: ALBUTEROL 200 PUFFS/18 GM MDI IH PRN (15:39)
[2017-03-30] MEDS ORDERED: LORazepam 0.5 MG TAB PO PRN (15:47)
[2017-03-30] MEDS ORDERED: TEARS/DEXTRAN 70/HYPROMELLOSE 15 ML OPHT.BTL EACHEYE PRN (15:47)
--- NOTE | 2017-03-30 15:54 | HOSPPROG ---
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 He is critically ill and has multiple indications that recovery from this would be difficult. Patient has been at [facility] for over 1 year. He is non-compliant and refuses most care there. His only known family member is his mom, but we have been unable to reach her. Per BM she has not been in contact with him during his entire stay there. They have no further contact information for her. His care may be futile at this point, but we do not have decision maker. Will consult ethics. Subjective: Intubated and sedated Objective: Vital Signs Temp Pulse Resp BP Pulse Ox 38.0 C 99 24 H 98/68 L 100 03/30/17 15:00 03/30/17 15:00 03/30/17 15:00 03/30/17 15:00 03/30/17 15:00 Microbiology 03/29/17 19:47 - Final Sputum, Induced/Suctioned Laboratory Results 03/30/17 04:50 03/30/17 04:50 03/29/17 03/30/17 03/31/17 05:59 05:59 05:59 Intake Total 4195 Output Total 1725 370 Balance 2470 -370 PT 12.9 SEC (12.0-15.0) 03/29/17 17:25 INR 0.98 (0.83-1.16) 03/29/17 17:25 unique burger regarding patients status CTA chest - mucus plugging - Physical Exam Constitutional: no apparent distress, not in pain, chronically ill appearing, unkempt, cachectic Cardiovascular: regular rate and rhythym, no murmur, rub, or gallop Respiratory: no respiratory distress, no rales or rhonchi, clear to auscultation Gastrointestinal: normoactive bowel sounds, soft, non-tender abdomen, no palpable masses Skin: no rashes or abrasions, no fluctuance, no induration Neurologic: No AAOx3 Psychiatric: encephalopathic, other (intubated and sedated), No agitated ICD10 Worksheet Patient Problems: Problems Problem Status Onset Acute hypoxemic respiratory failure Acute Aspiration pneumonitis Acute Failure to thrive Acute Severe sepsis Acute Traumatic brain injury Acute Dehydration Acute
--- NOTE | 2017-03-30 16:07 | ASMTCMCOM ---
CM Note CM Note Notes: Patient discussed at rounds. He is intubated and non-verbal. Call to [facility] where he resides and Angela informed us patient wheelchair bound, non verbal and refuses care. Attempted to contact his mother. Phone number is not working. No known address. Needs not determined at this time as patient is ventilated and unable to participate. CM to follow. Discussed with hospitalist and ethics consult to be ordered. Date Signed: 03/30/2017 04:06 PM Electronically Signed By:Nati Cain RN
[2017-03-30] MEDS ORDERED: ACETAMINOPHEN 325 MG TAB TUBE PRN (16:19)
[2017-03-30] MEDS ORDERED: ONDANSETRON DISINTEGRATING 4 MG TAB TUBE PRN (16:30)
--- NOTE | 2017-03-30 16:32 | WOCRNPDOC ---
WOBRIE Advanced Assessment Note - Skin Integrity Problem, Advanced Assess Bilateral Heel Dressing Type: Open to Air Ora Wound Tissue: Blanching Wound Bed Color: Silver Plume, Red Pressure Injury Present on Admit: No Skin Integrity Problem Comment: Patient with bilateral heel redness. Both heels currently blanching. Will initiate heel boots to protect. Sacrum Pressure Injury Dressing Type: Allevyn Life Dressing Description: Clean/Dry, Intact Exudate Amount: Scant Exudate Color: Reddish/Yellow Exudate Characteristic(s): Serosanguinous Integumentary Issue Intervention: Visualized Under Dressing Ora Wound Tissue: Intact Wound Bed Color: Red, Yellow Wound Bed Constitution: Granulation Tissue Wound Edges: Attached, Well Defined Site Measurement - Head-to-Toe Length X Width X Depth (cm): 1cmx1.6cmx0.3cm Pressure Injury Stage: Stage 3 Pressure Injury Present on Admit: Yes Skin Integrity Problem Comment: Wound cleaned with NS and gauze. Alleyvn Life coccyx dressing replaced. Plan is to initiate autolytic debridement to facilitate wound healing. Ade MCMILLAN at bedside. Wound care will round again later this week.
[2017-03-30] MEDS: CHLORHEXIDINE GLUCONATE 15 ML UDL PO SCH ×2 (17:23→20:55)
[2017-03-30] MEDS: LORazepam 0.5 MG TAB TUBE PRN (20:55)
[2017-03-30] MEDS: ATORVASTATIN CALCIUM 40 MG TAB PO SCH (20:55)
[2017-03-30] MEDS: FAMOTIDINE 20 MG TAB TUBE SCH (20:55)
[2017-03-30] MEDS ORDERED: FAMOTIDINE 20 MG/NACL 50 ML IV SCH (21:00)
[2017-03-31 04:52] LABS: BASE EXCESS 1.7 mEq/L (-2.5-2.5); BICARBONATE 24 mEq/L (22-26); MEASURED OXYGEN SATURATION 95 % (92-95); PCO2 31 mmHg (34-38); PO2 75 mmHg (65-75); TCO2 25 mEq/L (23-27)
[2017-03-31 04:53] LABS: ASSIST CONTROL YES; END TIDAL CO2 24; TOTAL RATE 28
[2017-03-31 05:35] LABS: % IMMATURE GRANULYOCYTES 0.5 % (0.0-1.1); ADD DIFF? NO; ADD MORPH? NO; ADD SCAN? YES; ATYPICAL LYMPHOCYTE FLAG 0 (0-99); FRAGMENT RBC FLAG 30 (0-99); HEMOGLOBIN 10.2 g/dL (13.7-17.5); LIPEMIA HEMOLYSIS FLAG 80 (0-99); MEAN CELL HEMOGLOBIN 29.9 pg (27.9-34.1); MEAN CELL HEMOGLOBIN CONCENTR. 32.9 g/dL (32.4-36.7); MEAN CELL VOLUME 90.9 fL (81.5-99.8); MEAN PLATELET VOLUME 10.1 fL (8.7-11.7); PLATELET CLUMPS FLAG 10 (0-99); PLATELET COUNT 469 10^3/uL (150-400); RED BLOOD CELL COUNT 3.41 10^6/uL (4.40-6.38); RED CELL DISTRIBUTION WIDTH 14.8 % (11.5-15.2)
[2017-03-31 05:37] LABS: LEFT SHIFT FLG 100 (0-99)
[2017-03-31] MEDS: MEROPENEM 1 GM in NS 100 ML IV SCH (05:56)
[2017-03-31 06:06] LABS: SCAN NEGATIVE
[2017-03-31] MEDS: fentaNYL/NACL 100 ML IV SCH ×2 (06:16→15:24)
[2017-03-31 07:22] LABS: ANION GAP 4 mEq/L (8-16); CALCIUM 8.8 mg/dL (8.5-10.4); CARBON DIOXIDE 25 mEq/l (22-31); CHLORIDE 114 mEq/L (97-110); CREATININE 0.5 mg/dL (0.7-1.3); GLOMERULAR FILTRATION RATE > 60; GLUCOSE 104 mg/dL (70-100); POTASSIUM 3.7 mEq/L (3.5-5.2); SODIUM 143 mEq/L (134-144)
[2017-03-31] MEDS: PROPOFOL/EMULSION 50 ML IV SCH (07:30)
[2017-03-31] MEDS: FAMOTIDINE 20 MG TAB TUBE SCH ×2 (08:12→21:05)
[2017-03-31] MEDS: CHLORHEXIDINE GLUCONATE 15 ML UDL PO SCH ×2 (08:12→21:05)
[2017-03-31] MEDS: NICOTINE 21 MG/24 HR PATCH TD SCH (08:12)
[2017-03-31] MEDS: THIAMINE HCL 100 MG TAB TUBE SCH (08:12)
[2017-03-31] MEDS: ASPIRIN 81 MG CHEWABLE TAB TUBE SCH (08:12)
[2017-03-31] MEDS: ENOXAPARIN 40 MG/0.4 ML SYR SC SCH (08:12)
[2017-03-31] MEDS: CITALOPRAM 20 MG TAB PO SCH (08:12)
[2017-03-31] MEDS: VANCOMYCIN HCL/NORMAL SALINE 250 ML IV SCH ×2 (08:13→19:44)
[2017-03-31] MEDS ORDERED: NON-FORMULARY NEW DRUG (Escitalopram Oxalate [Lexapro] 5 MG) PO SCH (09:00)
--- NOTE | 2017-03-31 11:38 | GCON ---
[f rep st] CONSULTATION INFECTIOUS DISEASE CONSULTATION DATE OF CONSULTATION: 03/31/2017 REFERRING PHYSICIAN: Becky Wan MD REASON FOR CONSULTATION: Sepsis. CHIEF COMPLAINT: Sepsis. HISTORY OF PRESENT ILLNESS: This is a 57-year-old male with a past medical history significant for chronic encephalopathy/dementia with history of traumatic brain injury, COPD, CHF, who resides at [facility] for the past 1 year. He apparently was found down in the long term for an undisclosed time period. He was resuscitated in the field, but was unresponsive when he came into the ER. He was intubated due to hypoxia. Saturations were 68. He was also hypotensive at the time, the blood pressure 67/30 years, and his heart rate was 128. He had a chest CT done, which showed extensive mucus plugging of the left lung with partial collapse. Blood cultures x2 sets were done, and they are pending. 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 He had a white blood cell count 37,000. He was started empirically on vancomycin and Merrem. The patient is sedated and intubated in Intensive Care Unit, so history is obtained purely from medical records. REVIEW OF SYSTEMS: Could not be obtained. PAST MEDICAL HISTORY: Significant for chronic encephalopathy/dementia secondary to traumatic brain injury, COPD, GERD, CHF, dyslipidemia, hypertension , possible esophageal strictures. PAST SURGICAL HISTORY: Significant for PLOW HOLDER shunt. SOCIAL HISTORY: Unknown. FAMILY HISTORY: Unknown. MEDICATIONS: As per MAR. ALLERGIES: No known drug allergies. PHYSICAL EXAMINATION: VITAL SIGNS: Temperature current 37.4, T-max was 38.4 yesterday, pulse is 73, blood pressure 96/56, respiratory rate is 24, saturation 100% on 40% FiO2. GENERAL: The patient does not open eyes to verbal stimuli at this time. HEENT: Eyes without conjunctival injection. Oropharynx not well visualized. He has an ET tube in place. CARDIOVASCULAR: S1, S2. Regular rate and rhythm. No obvious murmurs appreciated. RESPIRATORY SYSTEM: Coarse breath sounds on the left side. ABDOMEN: Bowel sounds are quiet. Abdomen seems firm. EXTREMITIES: Without lower extremity edema. MUSCULOSKELETAL: No obvious joint effusions. He has some mild erythema of the heels bilaterally with some blanching. Sacral decubitus was not examined today. Wound care note reviewed. LABORATORY DATA: White blood cell count of 18.4, hemoglobin 10.2, platelets are 439, neutrophil count 86%. Sodium 143, potassium 3.7, chloride 114, bicarb 25, BUN is 23, creatinine . LFTs within the normal range as of yesterday. Urinalysis unremarkable. Vanc trough 8.2. Cultures as stated above. Imaging results have all been reviewed by me and are stated above. ASSESSMENT: 1. Sepsis, likely related to left lung mucous plugging/respiratory failure. 2. Sacral decubitus. 3. Possible esophageal strictures. 4. Traumatic brain injury. PLAN: At this point in time, the patient is currently on vancomycin and Merrem , and we will continue this empirically for now while cultures are maturing. Vancomycin trough at 8.2. Expect this will likely accumulate. Given underlying comorbidities, prognosis is guarded. We will continue to follow cultures and adjust antimicrobials as necessary. Thank you very much for the opportunity to care for the patient in consultation. /[id number]/MODL MTDD
--- NOTE | 2017-03-31 13:32 | PDINTPN ---
Rug Measurer Progress Note Assessment/Plan: Assessment/plan: 57 M with remote TBI, craniectomy without replacement of bone flap, and presumed COPD with ongoing smoking admitted from [facility] 03/29 with acute respiratory failure after being found down with a pulse. He had severe hypoxemia prior to and after intubation, and an emergent bronch revealed mucous plugging on the left. per manager staffing he was also disheveled with poor hygiene and a stage II decub on his back. At baseline he is reportedly non-verbal, but does go outside to smoke regularly. * Acute respiratory failure with hypoxemia requiring intubation, likely from pneumonia though he was treated recently for aspiration pneumonia and was not on antibiotics. Continued signs of improvement and will attempt weans today. * Metabolic acidosis- hyperchloremic metabolic acidosis, probably from NS resuscitation, now resolved after one liter HCO3. * Septic shock- improved and remains off pressors. Sputum cx with GNR; treated with meropenem. Lactate resolved. * Skin breakdown prior to hospital. 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 * COPD- hyperinflation on CXR- change albuterol Q4 scheduled to prn. May need spiriva after extubated. * HTN- currently stable, holding home meds. * Hyperkalemia- likely hemolyzed specimen * * critical care time 35 minutes 03/31/17 13:29 Subjective: Stable overnight Objective: Vital Signs Temp Pulse Resp BP Pulse Ox 37.4 C 90 18 101/52 L 100 03/31/17 12:00 03/31/17 12:00 03/31/17 12:00 03/31/17 12:00 03/31/17 12:00 Microbiology 03/29/17 19:47 - Final Sputum, Induced/Suctioned Laboratory Results 03/31/17 05:15 03/31/17 05:15 03/30/17 03/31/17 04/01/17 05:59 05:59 05:59 Intake Total 4195 5045.7 Output Total 1725 1245 175 Balance 2470 3800.7 -175 PT 12.9 SEC (12.0-15.0) 03/29/17 17:25 INR 0.98 (0.83-1.16) 03/29/17 17:25 Physical Exam - Physical Exam General Appearance: alert, no apparent distress, other (on vent) EENT: PERRL/EOMI, ET tube Neck: supple Respiratory: lungs clear, normal breath sounds, No respiratory distress Cardiac/Chest: edema, irregularly irregular Abdomen: non-tender, soft, No distended Skin: normal color, warm/dry Extremities: pedal edema, other (severe venous stasis changes) Neuro/Psych: cognition abnormalities ICD10 Worksheet Patient Problems: Problems Problem Status Onset Acute hypoxemic respiratory failure Acute Aspiration pneumonitis Acute Failure to thrive Acute Severe sepsis Acute Traumatic brain injury Acute Dehydration Acute
[2017-03-31] MEDS: ERTAPENEM 1 GM in NS 100 ML IV SCH (13:59)
--- NOTE | 2017-03-31 15:02 | HOSPPROG ---
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 He is critically ill and has multiple indications that recovery from this would be difficult. Patient has been at [facility] for over 1 year. He is non-compliant and refuses most care there. His only known family member is his mom, but we have been unable to reach her. Per BM she has not been in contact with him during his entire stay there. They have no further contact information for her. His care may be futile or against his wishes, but we do not have decision maker. Will consult ethics. Subjective: Vent status improved Objective: Vital Signs Temp Pulse Resp BP Pulse Ox 37.4 C 71 24 H 102/57 L 100 03/31/17 12:00 03/31/17 14:00 03/31/17 14:00 03/31/17 14:00 03/31/17 14:00 Microbiology 03/29/17 19:47 - Final Sputum, Induced/Suctioned Laboratory Results 03/31/17 05:15 03/31/17 05:15 03/30/17 03/31/17 04/01/17 05:59 05:59 05:59 Intake Total 4195 5045.7 Output Total 1725 1245 450 Balance 2470 3800.7 -450 PT 12.9 SEC (12.0-15.0) 03/29/17 17:25 INR 0.98 (0.83-1.16) 03/29/17 17:25 d/w Dr. Alvarez - he might extubate soon Fluoro guided feeding tube report viewed - hypopharyngeal mass - Physical Exam Constitutional: no apparent distress, not in pain, chronically ill appearing, unkempt, cachectic Cardiovascular: regular rate and rhythym, no murmur, rub, or gallop Respiratory: no respiratory distress, no rales or rhonchi, clear to auscultation Gastrointestinal: normoactive bowel sounds, soft, non-tender abdomen, no palpable masses Skin: no rashes or abrasions, no fluctuance, no induration Neurologic: No AAOx3 Psychiatric: encephalopathic, other (intubated and sedated), No interacting appropriately, No agitated ICD10 Worksheet Patient Problems: Problems Problem Status Onset Acute hypoxemic respiratory failure Acute Aspiration pneumonitis Acute Failure to thrive Acute Severe sepsis Acute Traumatic brain injury Acute Dehydration Acute
[2017-03-31] MEDS: COLLAGENASE 30 GM OINTMENT TP SCH (15:29)
[2017-03-31] MEDS ORDERED: IOPAMIDOL (ISOVUE-300) 100 ML BTL ONE (16:55)
[2017-03-31] MEDS ORDERED: ALBUTEROL 3 ML DEYVIAL ONE (17:11)
[2017-03-31] MEDS: ATORVASTATIN CALCIUM 40 MG TAB PO SCH (21:05)
[2017-04-01] MEDS: PROPOFOL/EMULSION 50 ML IV SCH ×2 (00:30→07:20)
[2017-04-01] MEDS: fentaNYL/NACL 100 ML IV SCH (00:30)
[2017-04-01 04:27] LABS: % IMMATURE GRANULYOCYTES 0.4 % (0.0-1.1); ABSOLUTE IMMATURE GRANULOCYTES 0.05 10^3/uL (0.00-0.10); ADD DIFF? NO; ADD MORPH? NO; ADD SCAN? NO; ATYPICAL LYMPHOCYTE FLAG 20 (0-99); FRAGMENT RBC FLAG 0 (0-99); HEMATOCRIT 30.5 % (40.0-51.0); LEFT SHIFT FLG 40 (0-99); LIPEMIA HEMOLYSIS FLAG 80 (0-99); MEAN CELL HEMOGLOBIN CONCENTR. 32.8 g/dL (32.4-36.7); MEAN CELL VOLUME 91.6 fL (81.5-99.8); MEAN PLATELET VOLUME 10.1 fL (8.7-11.7); PLATELET CLUMPS FLAG 0 (0-99); PLATELET COUNT 412 10^3/uL (150-400); RED BLOOD CELL COUNT 3.33 10^6/uL (4.40-6.38); RED CELL DISTRIBUTION WIDTH 14.7 % (11.5-15.2)
[2017-04-01 04:44] LABS: ANION GAP 4 mEq/L (8-16); CALCIUM 8.4 mg/dL (8.5-10.4); CARBON DIOXIDE 26 mEq/l (22-31); CHLORIDE 110 mEq/L (97-110); CREATININE 0.4 mg/dL (0.7-1.3); GLOMERULAR FILTRATION RATE > 60; GLUCOSE 98 mg/dL (70-100); POTASSIUM 3.4 mEq/L (3.5-5.2); SODIUM 140 mEq/L (134-144)
[2017-04-01] MEDS: VANCOMYCIN HCL/NORMAL SALINE 250 ML IV SCH (07:51)
--- NOTE | 2017-04-01 09:22 | PCMIDPN ---
Assessment/Plan: Sepsis and Aspiration PNA, Klebsiella on culture- only resistant to ampicillin. Overall, significantly improved vent settings and likely extubation today. 2 sets of blood cultures remain negative. Actual food was found in airways at time of bronchoscopy. --dc vancomycin --with rapid improvement of lung mechanics would plan a short course of antibiotics, 7 days of ertapenem --ID to follow peripherally Care coordinated with Dr. Alvarez Subjective: Patient is awake and endorsing wanting ET tube removed Objective: Vital Signs Temp Pulse Resp BP Pulse Ox 37.9 C 96 24 H 105/57 L 96 04/01/17 06:00 04/01/17 08:24 04/01/17 06:00 04/01/17 06:00 04/01/17 08:24 Microbiology 03/29/17 19:47 - Final Sputum, Induced/Suctioned Sputum Culture - Final Klebsiella Pneumoniae Ssp Pneu Laboratory Results 04/01/17 04:17 04/01/17 04:17 03/31/17 04/01/17 04/02/17 05:59 05:59 05:59 Intake Total 5045.7 4376 Output Total 1245 2100 Balance 3800.7 2276 - Physical Exam General Appearance: alert, cachetic, other (pronounced bi-temp wasting) EENT: pale conjunctiva, ET Tube, other (OGT in place), No scleral icterus Respiratory: coarse breath sounds Neck: supple Cardiac/Chest: regular rate, rhythm Extremities: other (diffuse muscle wasting), No pedal edema Skin: pallor, No diaphoresis, No rash Neuro/Psych: alert - Line/s LUE PICC Lines: No drainage, No erythema ICD10 Worksheet Patient Problems: Problems Problem Status Onset Acute hypoxemic respiratory failure Acute Aspiration pneumonitis Acute Failure to thrive Acute Severe sepsis Acute Traumatic brain injury Acute Dehydration Acute
[2017-04-01] MEDS: ERTAPENEM 1 GM in NS 100 ML IV SCH (09:57)
[2017-04-01] MEDS: CITALOPRAM 20 MG TAB PO SCH (09:57)
[2017-04-01] MEDS: CHLORHEXIDINE GLUCONATE 15 ML UDL PO SCH ×2 (09:57→21:06)
[2017-04-01] MEDS: THIAMINE HCL 100 MG TAB TUBE SCH (09:58)
[2017-04-01] MEDS: NICOTINE 21 MG/24 HR PATCH TD SCH (09:58)
[2017-04-01] MEDS: FAMOTIDINE 20 MG TAB TUBE SCH ×2 (09:58→21:06)
[2017-04-01] MEDS: ASPIRIN 81 MG CHEWABLE TAB TUBE SCH (09:58)
[2017-04-01] MEDS: ENOXAPARIN 40 MG/0.4 ML SYR SC SCH (09:58)
[2017-04-01] MEDS: COLLAGENASE 30 GM OINTMENT TP SCH (09:59)
--- NOTE | 2017-04-01 10:15 | HOSPPROG ---
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, not on CT neck # hx sternotomy (seen on CXR) # dispo - FCFT for now; lives at ; no clear family involvement; no decision maker Subjective: slightly moves eyes to voice Objective: Vital Signs Temp Pulse Resp BP Pulse Ox 38 C 96 23 H 119/62 96 04/01/17 08:00 04/01/17 08:24 04/01/17 08:00 04/01/17 08:00 04/01/17 08:24 Microbiology 03/29/17 19:47 - Final Sputum, Induced/Suctioned Sputum Culture - Final Klebsiella Pneumoniae Ssp Pneu Laboratory Results 04/01/17 04:17 04/01/17 04:17 03/31/17 04/01/17 04/02/17 05:59 05:59 05:59 Intake Total 5045.7 4376 Output Total 1245 2100 Balance 3800.7 2276 PT 12.9 SEC (12.0-15.0) 03/29/17 17:25 INR 0.98 (0.83-1.16) 03/29/17 17:[address] reviewed CXR personally reviewed - Physical Exam Constitutional: chronically ill appearing Ears, Nose, Mouth, Throat: other (NG tube) Cardiovascular: regular rate and rhythym, no murmur, rub, or gallop Respiratory: other (intubated, coarse BS, rales, rohnchi) Gastrointestinal: normoactive bowel sounds, soft, non-tender abdomen, no palpable masses ICD10 Worksheet Patient Problems: Problems Problem Status Onset Failure to thrive Acute Dehydration Acute Acute hypoxemic respiratory failure Acute Aspiration pneumonitis Acute Severe sepsis Acute Traumatic brain injury Acute
[2017-04-01] MEDS: POTASSIUM Cl (KCl) 100 ML IV SCH ×2 (11:11→12:39)
[2017-04-01] MEDS: NS 1,000 ML IV SCH ×2 (11:12→21:06)
--- NOTE | 2017-04-01 13:28 | PDINTPN ---
Rn Clinical Documentation Specialist Progress Note Assessment/Plan: Assessment/plan: 57 M with remote TBI, craniectomy without replacement of bone flap, and presumed COPD with ongoing smoking admitted from [facility] 03/29 with acute respiratory failure after being found down with a pulse. He had severe hypoxemia prior to and after intubation, and an emergent bronch revealed mucous plugging on the left. per staffing director he was also disheveled with poor hygiene and a stage II decub on his back. At baseline he is reportedly non-verbal, but does go outside to smoke regularly. * Acute respiratory failure with hypoxemia requiring intubation, likely from aspiration pneumonia though he was treated recently for aspiration pneumonia and was not on antibiotics. Continued signs of improvement and weaning well this am. Likely extubation * Metabolic acidosis- hyperchloremic metabolic acidosis, probably from NS resuscitation, now resolved after one liter HCO3. * Septic shock- improved and remains off pressors. Sputum cx with GNR; treated with meropenem. Lactate resolved. * Skin breakdown prior to hospital. 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 * COPD- hyperinflation on CXR- change albuterol Q4 scheduled to prn. May need spiriva after extubated. * HTN- currently stable, holding home meds. * Hyperkalemia- likely hemolyzed specimen * Malnutrition?- he is very cachectic and may not be getting adequate nutrition - which may be on his own accord. [facility] staffing director told CM that he eats OK. Tried to reach PCP (Dr. Lima; [phone]) but no answer. Unable to reach family despite multiple efforts. May need to appoint proxy for additional decisions, such as tube feeds. * Subjective: More alert today and follows commands Objective: Vital Signs Temp Pulse Resp BP Pulse Ox 37.8 C 99 31 H 96/53 L 96 04/01/17 10:00 04/01/17 10:00 04/01/17 10:00 04/01/17 10:00 04/01/17 10:00 Microbiology 03/29/17 19:47 - Final Sputum, Induced/Suctioned Sputum Culture - Final Klebsiella Pneumoniae Ssp Pneu Laboratory Results 04/01/17 04:17 04/01/17 04:17 03/31/17 04/01/17 04/02/17 05:59 05:59 05:59 Intake Total 5045.7 4376 Output Total 1245 2100 Balance 3800.7 2276 PT 12.9 SEC (12.0-15.0) 03/29/17 17:25 INR 0.98 (0.83-1.16) 03/29/17 17:25 Physical Exam - Physical Exam General Appearance: alert, no apparent distress, cachetic EENT: PERRL/EOMI Neck: supple Respiratory: lungs clear, normal breath sounds, No respiratory distress Cardiac/Chest: regular rate, rhythm, No edema Abdomen: non-tender, soft, No distended Skin: normal color, warm/dry, decubitus Lymphatic: no adenopathy Extremities: No pedal edema Neuro/Psych: alert, cognition abnormalities ICD10 Worksheet Patient Problems: Problems Problem Status Onset Acute hypoxemic respiratory failure Acute Aspiration pneumonitis Acute Failure to thrive Acute Severe sepsis Acute Traumatic brain injury Acute Dehydration Acute
[2017-04-01] MEDS ORDERED: IPRATROPIUM/ALBUTEROL 3 ML DEYVIAL ONE (15:31)
[2017-04-01] MEDS: IPRATROPIUM/ALBUTEROL 3 ML DEYVIAL IH SCH (16:03)
[2017-04-01] MEDS: ACETYLCYSTEINE 20% IH/PO 30 ML VIAL IH SCH (16:03)
--- NOTE | 2017-04-01 16:27 | ASMTCMCOM ---
CM Note CM Note Notes: There continue to be many questions/concerns about patient's history and current care. I spoke with a few people today who were mildly helpful. Tonia, an employee benefits administrator at [facility] (has worked there for approx 1 month), said that patient was sent to the facility September 2015 from [facility]. She says that patient is able to/does eat and communicates by writing and gesturing. She says that despite multiple attempts to reach his mother Soila Alvarez ([phone]), no one has ever spoken with her. She gave me the name and number of a physician who had seen the patient recently. I then spoke with Dr Lima ([phone]) who is apparently a physician part of a group contracted to see patient's at [facility] ([facility]). He saw the patient once, on 02/06/17, and did not glean much from the visit except that the patient perseverates about smoking cigarettes and is not interested in much else. Dr Lima was reading throught he patient's chart as we were speaking and said that he has a history of closed head injury (date and cause unknown), CVA (same), and alcoholism. He said that patient becomes angry easily and often. Since 02/06/17, patient had been seen by other providers about 6-7 times. During those visits, hospice was reocmmended, APS involvement was recommended, and patient's decisionality was questioned. According to Dr Lima, once the physicians make a recommendation the floor nurses and/or GROUND HOST/HOSTESS are supposed to follow through. Now, the question is whether anyone at [facility] is advocating on behalf of this patient and following the recommendations of the physicians. I spoke with Enriqueta, who is [facility] Case Mgmt's call or contact centre team leader for the facility, and requested that [facility]'s blueprint assembler Sandi call me and/or come to the hospital tomorrow. There are concerns about the patient's decisionality and the care he is receiving at [facility]. I will share this information with the Ethics team, as well. Date Signed: 04/01/2017 04:27 PM Electronically Signed By:Raine Ruff RN
[2017-04-01] MEDS: LORazepam 0.5 MG TAB TUBE PRN (17:15)
--- NOTE | 2017-04-01 17:59 | PDPCPN ---
Palliative Care Progress Note Assessment/Plan: Referring provider: Dr Gamble Reason for consult: Complex medical decision making Symptom control HPI: Luis E Fischer is a 57 yo male with PMH HTN, ETOH abuse, TBI with dementia, and COPD admitted to the hospital after being found down at [facility] for an unknown length of time. Emergently intubated in the ED after arriving in respiratory failure and hypoxic to 68%. Bronch revealed large mucous plugging. Also with sepsis likely to PNA. Resp status has improved and extubated today. Palliative care consulted for complex medical decision making. Per Chart review from last hospital admission baseline appears to be non verbal and wheelchair bound. Currently has a stage III pressure ulcer. He is incontinent and unable to ambulate without assistance. He appears to be a FAST 7c which would indicate end stage dementia 2/2 remote hx of TBI with progression of disease complicated by aspiration PNA and malnutrition with weight loss and BMI of 13. feeding tubes are contraindicated in end stage dementia as PEG tubes do not reduce the risk of aspiration and do not contribute to quality of life. Assessment: Physical: - Pain: appears comfortable -tylenol PRN - turn and reposition - weakness - nursing care - dysphagia - previous VFSS with requiring honey thick liquids- has likely declined since then - MOST form with no artificial nutrition selected. Emotional/psychological: Acute on chronic encephalopathy: - maintain normal routines - avoid sedating medication - haldol is best for any agitation related to confusion Advanced Care Planning: Is patient decisional?: No Code Status: FULL MD POA: ethics working on proxy. Plan: Palliative care to follow to help with goals of care and direction of medical care. He would be hospice eligible if PEG tube is not placed. Subjective: mumbles words Objective: Social History: Lives at [facility] for about the past 2 years. Mother Soila has been tried to reach multiple times. At likes to go outside and smoke in his wheelchair Medication list reviewed ROS: unable to obtain Functional assessment: PPS:30% Functional status: dependent on ADLs, IADLs Vital Signs Temp Pulse Resp BP Pulse Ox 37.7 C 102 H 28 H 115/61 92 04/01/17 15:15 04/01/17 16:10 04/01/17 16:10 04/01/17 15:15 04/01/17 16:10 Microbiology 03/29/17 19:47 - Final Sputum, Induced/Suctioned Sputum Culture - Final Klebsiella Pneumoniae Ssp Pneu Laboratory Results 04/01/17 04:17 04/01/17 04:17 03/31/17 04/01/17 04/02/17 05:59 05:59 05:59 Intake Total 5045.7 4376 Output Total 1245 2100 Balance 3800.7 2276 PT 12.9 SEC (12.0-15.0) 03/29/17 17:25 INR 0.98 (0.83-1.16) 03/29/17 17:25 Physical Exam - Physical Exam General Appearance: alert, no apparent distress, cachetic Respiratory: decreased breath sounds, No accessory muscle use Skin: normal color, warm/dry Extremities: No pedal edema Neuro/Psych: alert, other (non verbal. responses varied and not consistant ) ICD10 Worksheet Patient Problems: Problems Problem Status Onset Acute hypoxemic respiratory failure Acute Aspiration pneumonitis Acute Failure to thrive Acute Palliative care encounter Acute Severe sepsis Acute Traumatic brain injury Acute Dehydration Acute - ICD10 Problem Qualifiers (1) Palliative care encounter
[2017-04-01] MEDS: ATORVASTATIN CALCIUM 40 MG TAB PO SCH (21:06)
[2017-04-02] MEDS: IPRATROPIUM/ALBUTEROL 3 ML DEYVIAL IH SCH ×5 (00:12→23:46)
[2017-04-02] MEDS: ACETYLCYSTEINE 20% IH/PO 30 ML VIAL IH SCH ×3 (00:12→23:46)
[2017-04-02 06:29] LABS: % IMMATURE GRANULYOCYTES 0.5 % (0.0-1.1); ABSOLUTE IMMATURE GRANULOCYTES 0.09 10^3/uL (0.00-0.10); ADD DIFF? NO; ADD MORPH? NO; ADD SCAN? NO; ATYPICAL LYMPHOCYTE FLAG 0 (0-99); FRAGMENT RBC FLAG 0 (0-99); HEMATOCRIT 30.3 % (40.0-51.0); HEMOGLOBIN 10.2 g/dL (13.7-17.5); LEFT SHIFT FLG 20 (0-99); LIPEMIA HEMOLYSIS FLAG 80 (0-99); MEAN CELL HEMOGLOBIN 29.9 pg (27.9-34.1); MEAN CELL HEMOGLOBIN CONCENTR. 33.7 g/dL (32.4-36.7); MEAN CELL VOLUME 88.9 fL (81.5-99.8); MEAN PLATELET VOLUME 10.5 fL (8.7-11.7); PLATELET CLUMPS FLAG 0 (0-99); PLATELET COUNT 394 10^3/uL (150-400); RED BLOOD CELL COUNT 3.41 10^6/uL (4.40-6.38)
[2017-04-02 06:45] LABS: ALANINE AMINOTRANSFERASE 37 IU/L (21-72); ALKALINE PHOSPHATASE 84 IU/L (38-126); ANION GAP 6 mEq/L (8-16); ASPARTATE AMINOTRANSFERASE 26 IU/L (17-59); BILIRUBIN,TOTAL 0.8 mg/dL (0.1-1.4); CALCIUM 8.3 mg/dL (8.5-10.4); CARBON DIOXIDE 28 mEq/l (22-31); CHLORIDE 104 mEq/L (97-110); CREATININE 0.4 mg/dL (0.7-1.3); GLOMERULAR FILTRATION RATE > 60; GLUCOSE 79 mg/dL (70-100); POTASSIUM 3.4 mEq/L (3.5-5.2); SODIUM 138 mEq/L (134-144); TOTAL PROTEIN 4.2 g/dL (6.3-8.2)
[2017-04-02] MEDS ORDERED: fentaNYL 100 MCG/2 ML INJ ONE (08:39)
[2017-04-02] MEDS ORDERED: MIDAZOLAM 2 MG/2 ML VIAL ONE (08:39)
[2017-04-02] MEDS ORDERED: LIDOCAINE 2% JELLY 5 ML TUBE ONE (08:39)
[2017-04-02] MEDS ORDERED: LIDOCAINE 1% 300 MG/30 ML SDV ONE ×2 (08:39→09:25)
[2017-04-02] MEDS: ENOXAPARIN 40 MG/0.4 ML SYR SC SCH (08:44)
[2017-04-02] MEDS: ASPIRIN 81 MG CHEWABLE TAB TUBE SCH (09:20)
[2017-04-02] MEDS: FAMOTIDINE 20 MG TAB TUBE SCH (09:21)
[2017-04-02] MEDS: COLLAGENASE 30 GM OINTMENT TP SCH (09:21)
[2017-04-02] MEDS: CITALOPRAM 20 MG TAB PO SCH (09:21)
[2017-04-02] MEDS: THIAMINE HCL 100 MG TAB TUBE SCH (09:22)
[2017-04-02] MEDS: ERTAPENEM 1 GM in NS 100 ML IV SCH (09:25)
[2017-04-02] MEDS: NICOTINE 21 MG/24 HR PATCH TD SCH (09:30)
[2017-04-02] MEDS: CHLORHEXIDINE GLUCONATE 15 ML UDL PO SCH ×2 (09:33→20:03)
[2017-04-02] MEDS ORDERED: LIDOCAINE 1% 300 MG/30 ML SDV IF ONE (09:52)
[2017-04-02] MEDS ORDERED: MIDAZOLAM 2 MG/2 ML VIAL IVP ONE (10:00)
[2017-04-02] MEDS ORDERED: fentaNYL 100 MCG/2 ML INJ IVP ONE (10:00)
--- NOTE | 2017-04-02 10:19 | HOSPPROG ---
Hospitalist Progress Note Assessment/Plan: # severe sepsis - d/t pna - no pressors needed # mucous plug with L lung collapse - s/p bronch today and 03/29 - BD's, NAC inh - steroids? 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, not on CT neck # hx sternotomy (seen on CXR) # dispo - FCFT for now; would like to discuss goals of care with him as his mental status improves; MOST form - FCFT, no tube feeds; Subjective: extubated; s/p bronch this am; more responsive today Objective: Vital Signs Temp Pulse Resp BP Pulse Ox 37.7 C 94 29 H 112/64 93 04/01/17 15:15 04/02/17 08:00 04/02/17 08:00 04/02/17 08:00 04/02/17 08:00 Laboratory Results 04/02/17 06:10 04/02/17 06:10 04/01/17 04/02/17 04/03/17 05:59 05:59 05:59 Intake Total 4376 4089 Output Total 2100 4000 Balance 2276 89 PT 12.9 SEC (12.0-15.0) 03/29/17 17:25 INR 0.98 (0.83-1.16) 03/29/17 17:25 CXR personally reviewed discussed with Dr Alvarez - Physical Exam Constitutional: chronically ill appearing Cardiovascular: regular rate and rhythym, no murmur, rub, or gallop Respiratory: respiratory distress (mod), other (diminished R sided BS with mild rales/rhonchi), No expiratory wheeze Gastrointestinal: normoactive bowel sounds, soft, non-tender abdomen, no palpable masses ICD10 Worksheet Patient Problems: Problems Problem Status Onset Acute hypoxemic respiratory failure Acute Aspiration pneumonitis Acute Failure to thrive Acute Palliative care encounter Acute Severe sepsis Acute Traumatic brain injury Acute Dehydration Acute
--- NOTE | 2017-04-02 11:32 | WOCRNPDOC ---
RANJIT Advanced Assessment Note - Skin Integrity Problem, Advanced Assess Left Cheek Pressure Injury Dressing Type: Allevyn Life Dressing Description: Clean/Dry, Intact Exudate Amount: None Ora Wound Tissue: Erythema Wound Bed Constitution: Mixed Loose & Adhered Slough/Eschar Wound Edges: Attached Site Measurement - Head-to-Toe Length X Width X Depth (cm): 0.8x0.8x0 Pressure Injury Stage: Unstageable, Automation Test Developer Related Pressure Injury ( oxygen tubing) Pressure Injury Present on Admit: No Skin Integrity Problem Comment: Protect area at all times from tubing. Wound care will recheck next week. Sacrum Pressure Injury Dressing Type: Allevyn Life, Gauze Dressing Description: Clean/Dry, Intact Exudate Amount: None Integumentary Issue Intervention: Dressing Changed Ora Wound Tissue: Erythema, Macerated Wound Bed Color: Red, Yellow Wound Bed Constitution: Granulation Tissue (10%), Adhered Slough (90%) Wound Edges: Attached Pressure Injury Stage: Unstageable Pressure Injury Present on Admit: Yes Skin Integrity Problem Comment: No change in wound bed. Cleaned with ns and gauze. Skin prep to ora wound and then Santyl. Covered with telfa and then tegaderm and then Allevyn Life dressing. Juan Carlos VILCHIS and Jorge SCHWARTZ in room for care. Wound care will round again next week.
[2017-04-02] MEDS ORDERED: LIDOCAINE 1% 300 MG/30 ML SDV IH ONE (12:30)
[2017-04-02] MEDS ORDERED: LIDOCAINE 2% JELLY 5 ML TUBE TP ONE (12:30)
--- NOTE | 2017-04-02 12:40 | GPN ---
[f rep st] PROCEDURE NOTE DATE OF PROCEDURE: 04/02/2017 PROCEDURE: Bronchoscopy. INDICATION: Hypoxemia with white out on chest x-ray. CONSENT: Verbal consent was obtained from the patient who has difficulty communicating. He was able to answer yes and no questions appropriately, and appeared to understand the risks and benefits of t he procedure. Because of the urgency of the procedure, I felt that this was adequate consent to proc eed. ANESTHESIA: Conscious sedation was achieved using a total of 2 mg IV Versed and 25 mcg of IV fentany l. The patient tolerated these well. DESCRIPTION OF PROCEDURE: After application of topical lidocaine, the bronchoscope was advanced easi ly through the patient's oropharynx. The vocal cords appeared to be normal though did not close comp letely during my exam. On inspection of the proximal trachea, there was significant mucus plugging a nd mucus lining the trachea itself. The mucous plugging was at the level of the orifice of the left mainstem bronchus. This was quite thick and required multiple passes to clear this out. Subsequentl y, copious amounts of mucus were pooling in the left lung and was able to be cleared. The patient to lerated this well without complication. Inspection of the right lung did not reveal substantial mucu s plugging on that side. There were no endobronchial lesions. There were no food stuffs or other pa rticles noted in my specimens. No complications. /[id number]/MODL
--- NOTE | 2017-04-02 14:44 | PDINTPN ---
Firer Kiln Progress Note Assessment/Plan: Assessment/plan: 57 M with remote TBI, craniectomy without replacement of bone flap, and presumed COPD with ongoing smoking admitted from [facility] 03/29 with acute respiratory failure after being found down with a pulse. He had severe hypoxemia prior to and after intubation, and an emergent bronch revealed mucous plugging on the left. per staff nurse midwife he was also disheveled with poor hygiene and a stage II decub on his back. At baseline he is reportedly non-verbal, but does go outside to smoke regularly. * Acute respiratory failure with hypoxemia requiring intubation, likely from aspiration pneumonia though he was treated recently for aspiration pneumonia and was not on antibiotics. Extubated 04/01 but high O2 requirement. CXR today showed complete white out of left lung, leading to bronch. Copious amounts of plugs and secretions noted and cleared easily. Tloerated well with reduced O2 requirement. * Metabolic acidosis- hyperchloremic metabolic acidosis, probably from NS resuscitation, now resolved after one liter HCO3. * Septic shock- improved and remains off pressors. Sputum cx with GNR; treated with meropenem. Lactate resolved. * Skin breakdown prior to hospital. 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 * COPD- hyperinflation on CXR- change albuterol Q4 scheduled to prn. Added duoneb with mucomyst 04/01. * HTN- currently stable, holding home meds. * Hyperkalemia- likely hemolyzed specimen * Malnutrition?- he is very cachectic and may not be getting adequate nutrition - which may be on his own accord. [facility] staff nurse midwife told that he eats OK. Tried to reach PCP (Dr. Lima; [phone]) but no answer. Unable to reach family despite multiple efforts. He was able to answer yes/no questions this AM so seemed reasonable for bronch consent. Will re-address this in AM ( treated with versed and fentanyl for conscious sedation) and discuss goals of care, including PEG, hospice etc. * 04/02/17 14:45 Subjective: required vapotherm after extubation yesterday Objective: Vital Signs Temp Pulse Resp BP Pulse Ox 37.3 C 87 25 H 106/59 L 96 04/02/17 10:00 04/02/17 11:40 04/02/17 11:40 04/02/17 10:00 04/02/17 11:40 Microbiology 04/02/17 10:00 Gram Stain - Final Lung Left Lobe - Bronchial Washings Laboratory Results 04/02/17 06:10 04/02/17 06:10 04/01/17 04/02/17 04/03/17 05:59 05:59 05:59 Intake Total 4376 4089 Output Total 2100 4000 Balance 2276 89 PT 12.9 SEC (12.0-15.0) 03/29/17 17:25 INR 0.98 (0.83-1.16) 03/29/17 17:25 Physical Exam - Physical Exam General Appearance: alert, no apparent distress, other (prior to bronch) EENT: other (right eye deviates lateral) Neck: non-tender, supple Respiratory: decreased breath sounds (left), rhonchi Cardiac/Chest: regular rate, rhythm, No edema Abdomen: non-tender, soft, No distended Skin: normal color, warm/dry Lymphatic: no adenopathy Extremities: No pedal edema Neuro/Psych: alert, normal mood/affect ICD10 Worksheet Patient Problems: Problems Problem Status Onset Acute hypoxemic respiratory failure Acute Aspiration pneumonitis Acute Failure to thrive Acute Palliative care encounter Acute Severe sepsis Acute Traumatic brain injury Acute Dehydration Acute
--- NOTE | 2017-04-02 15:20 | ASMTCMCOM ---
CM Note CM Note Notes: Meeting with Susi from Ethics, Twila from Palliative care, LYNDSAY Junior at [facility], and LEIGHA Herron at [facility]. BM staff provided some background on patient: they have never made contact with his mother Soila; patient only communicates simple needs like wanting to eat or smoke; patient becomes overwhelmed when too much information is preserted to him; and, patient responds better to familiar faces than to strangers. They don't know anything about his past medical history. When I asked if anyone had followed up on recent [facility] physician recommendations that patient be evaluated by hospice and APS, the DON responded that the case management social worker "was working on it." The LYNDSAY is going to ask the case management social worker, Aminata, to get in touch with us to explain where she is in this process. Decisional capacity is our biggest concern right now, and neither Sandi nor Germaine felt that patient was capable of making a complex medical decision such as signing a MOST form or advance directive. Thus, the MOST form we have on record (signed by patient 09/2015) in which he wants CPR but not artificial nutrition is in question. Twila from Palliative believes that patient needs a hospice evaluation before leaving [facility]; however, we are again faced with questions about his decisional capacity. Patient had a bronchoscopy today and required sedative medications. PARKING CASHIER deferred their cognitive evaluation until tomorrow. Ethics has placed a call to [facility]'s legal department to review case. CM will follow up with BM tomorrow to see if we can get more information from their case management social worker. The LYNDSAY Junior also said that she would speak with the staff that interact with patient most to see if there was any additional information they could provide. Date Signed: 04/02/2017 03:19 PM Electronically Signed By:Raine Ruff RN
[2017-04-02] MEDS: ORAL BALANCE GEL TUBE PO PRN (19:54)
[2017-04-02] MEDS: FAMOTIDINE 20 MG/NACL 50 ML IV SCH (20:01)
[2017-04-02] MEDS: NS 1,000 ML IV SCH (22:15)
[2017-04-03] MEDS: ORAL BALANCE GEL TUBE PO PRN ×3 (02:06→19:37)
[2017-04-03] MEDS: IPRATROPIUM/ALBUTEROL 3 ML DEYVIAL IH SCH ×4 (05:07→23:06)
[2017-04-03 05:53] LABS: % IMMATURE GRANULYOCYTES 0.7 % (0.0-1.1); ADD DIFF? NO; ADD MORPH? NO; ADD SCAN? NO; ATYPICAL LYMPHOCYTE FLAG 30 (0-99); FRAGMENT RBC FLAG 0 (0-99); HEMATOCRIT 31.9 % (40.0-51.0); HEMOGLOBIN 10.8 g/dL (13.7-17.5); LEFT SHIFT FLG 0 (0-99); LIPEMIA HEMOLYSIS FLAG 90 (0-99); MEAN CELL HEMOGLOBIN 29.8 pg (27.9-34.1); MEAN CELL HEMOGLOBIN CONCENTR. 33.9 g/dL (32.4-36.7); MEAN CELL VOLUME 88.1 fL (81.5-99.8); MEAN PLATELET VOLUME 10.7 fL (8.7-11.7); PLATELET CLUMPS FLAG 0 (0-99); PLATELET COUNT 426 10^3/uL (150-400); RED BLOOD CELL COUNT 3.62 10^6/uL (4.40-6.38); RED CELL DISTRIBUTION WIDTH 13.7 % (11.5-15.2)
[2017-04-03 05:56] LABS: ANION GAP 8 mEq/L (8-16); CALCIUM 7.8 mg/dL (8.5-10.4); CARBON DIOXIDE 24 mEq/l (22-31); CHLORIDE 107 mEq/L (97-110); CREATININE 0.4 mg/dL (0.7-1.3); GLOMERULAR FILTRATION RATE > 60; GLUCOSE 72 mg/dL (70-100); POTASSIUM 3.2 mEq/L (3.5-5.2); SODIUM 139 mEq/L (134-144)
[2017-04-03] MEDS: NS 1,000 ML IV SCH (06:13)
[2017-04-03] MEDS ORDERED: PROTOCOL POTASSIUM 1 DOSE MISC PRN (09:41)
[2017-04-03] MEDS ORDERED: POTASSIUM Cl (KCl) 50 ML IV SCH (09:54)
[2017-04-03] MEDS: ENOXAPARIN 40 MG/0.4 ML SYR SC SCH (09:56)
[2017-04-03] MEDS: NICOTINE 21 MG/24 HR PATCH TD SCH (09:56)
[2017-04-03] MEDS: CHLORHEXIDINE GLUCONATE 15 ML UDL PO SCH ×2 (09:56→20:01)
[2017-04-03] MEDS: ERTAPENEM 1 GM in NS 100 ML IV SCH (09:56)
[2017-04-03] MEDS: FAMOTIDINE 20 MG/NACL 50 ML IV SCH ×2 (09:56→20:01)
[2017-04-03] MEDS: POTASSIUM Cl (KCl) 100 ML IV SCH ×2 (10:04→13:11)
--- NOTE | 2017-04-03 10:20 | HOSPPROG ---
Hospitalist Progress Note Assessment/Plan: # severe sepsis - d/t pna - no pressors needed # mucous plug with L lung collapse - s/p bronch 04/02 and 03/29 - BD's, NAC inh - will consider steroids if worsens again # aspiration pna - currently on invanz - kleb in sputum # acute resp failure/resp arrest - extubated 04/02 # acute and chronic encephalopathy - non-verbal at baseline - I think he is close to baseline today - concern for anoxic injury given hypoxia - hx TBI with TELEPHONE ANSWERER shunt, hx craniotomy # pressure injury - w/c bound # severe protein calorie malnutrition - BMI 13 - will do MECHANICAL PENCILS ASSEMBLER 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 # COPD/tobacco use # 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, not on CT neck - would like swallow study and esophagram, consider GI consult # hx sternotomy (seen on CXR) # dispo - MOST form - FCFT, no tube feeds but indicates to me that he would want TF's; ethics to eval today Subjective: much more communicative today; indicates to me that he would want a feeding tube Objective: Vital Signs Temp Pulse Resp BP Pulse Ox 37.1 C 87 27 H 144/64 H 100 04/03/17 08:00 04/03/17 08:00 04/03/17 08:00 04/03/17 08:00 04/03/17 08:00 Microbiology 04/02/17 10:00 Gram Stain - Final Lung Left Lobe - Bronchial Washings 04/02/17 10:00 Mycobacterial Smear (COLE) - Final Lung Left Lobe - Bronchial Washings Laboratory Results 04/03/17 05:15 04/03/17 05:15 04/02/17 04/03/17 04/04/17 05:59 05:59 05:59 Intake Total 4089 2920 Output Total 4000 1850 Balance 89 1070 PT 12.9 SEC (12.0-15.0) 03/29/17 17:25 INR 0.98 (0.83-1.16) 03/29/17 17:25 high risk - Physical Exam Constitutional: chronically ill appearing, cachectic Cardiovascular: regular rate and rhythym, no murmur, rub, or gallop Respiratory: no respiratory distress, inspiratory crackles (L sided), rhonchi ( scant), No expiratory wheeze Gastrointestinal: normoactive bowel sounds, soft, non-tender abdomen, no palpable masses ICD10 Worksheet Patient Problems: Problems Problem Status Onset Failure to thrive Acute Dehydration Acute Acute hypoxemic respiratory failure Acute Aspiration pneumonitis Acute Severe sepsis Acute Traumatic brain injury Acute Palliative care encounter Acute
[2017-04-03] MEDS: ACETYLCYSTEINE 20% IH/PO 30 ML VIAL IH SCH ×2 (11:36→16:34)
[2017-04-03] MEDS ORDERED: LIDOCAINE 1% 300 MG/30 ML SDV MISC ONE (12:24)
[2017-04-03] MEDS ORDERED: BENZOCAINE UNIT DOSE SPRAY HURRICAINE MM ONE (12:24)
[2017-04-03] MEDS ORDERED: LIDOCAINE 2% JELLY 5 ML TUBE TP ONE (12:24)
[2017-04-03] MEDS ORDERED: LIDOCAINE 2% JELLY 5 ML TUBE ONE (14:02)
[2017-04-03] MEDS ORDERED: MIDAZOLAM 2 MG/2 ML VIAL ONE (14:18)
[2017-04-03] MEDS ORDERED: fentaNYL 100 MCG/2 ML INJ ONE (14:18)
[2017-04-03] MEDS ORDERED: LIDOCAINE 1% 300 MG/30 ML SDV ONE (14:30)
[2017-04-03] MEDS: CITALOPRAM 20 MG TAB PO SCH (14:48)
[2017-04-03] MEDS ORDERED: MIDAZOLAM 2 MG/2 ML VIAL IVP ONE (15:13)
[2017-04-03] MEDS ORDERED: fentaNYL/NACL 100 ML IV ONE (15:14)
--- NOTE | 2017-04-03 16:06 | PDINTPN ---
Sheep Boner Progress Note Assessment/Plan: Assessment/plan: 57 M with remote TBI, craniectomy without replacement of bone flap, and presumed COPD with ongoing smoking admitted from [facility] 03/29 with acute respiratory failure after being found down with a pulse. He had severe hypoxemia prior to and after intubation, and an emergent bronch revealed mucous plugging on the left. per staff antisubmarine officer he was also disheveled with poor hygiene and a stage II decub on his back. At baseline he is reportedly non-verbal, but does go outside to smoke regularly. * Acute respiratory failure with hypoxemia requiring intubation, likely from aspiration pneumonia though he was treated recently for aspiration pneumonia and was not on antibiotics. Extubated 04/01 but high O2 requirement. CXR 04/02 showed complete white out of left lung, leading to bronch. Copious amounts of plugs and secretions noted and cleared easily with elimination of O2 requirement. However, repeat CXR today shows again complete white-out of left, so repeated bronch with similar results. Post procedure CXR with improvement, but mostly confined to RADHA. Added vest, symbicort, and solumedrol as well dc'd IVF. * Metabolic acidosis- hyperchloremic metabolic acidosis, probably from NS resuscitation, now resolved after one liter HCO3. * Septic shock- improved and remains off pressors. Sputum cx with GNR; treated with meropenem. Lactate resolved. * Skin breakdown prior to hospital. Wound care to evaluate * TBI with CLIENT SERVICE REPRESENTATIVE shunt- clinically stable. * COPD- hyperinflation on CXR- change albuterol Q4 scheduled to prn. Added duoneb with mucomyst 04/01. See above * HTN- currently stable, holding home meds. * Hyperkalemia- likely hemolyzed specimen * Malnutrition?- he is very cachectic and may not be getting adequate nutrition - which may be on his own accord. [facility] staff antisubmarine officer told CM that he eats OK. Tried to reach PCP (Dr. Lima; [phone]) but no answer. Unable to reach family despite multiple efforts. He was able to answer yes/no questions this AM so seemed reasonable for bronch consent. Will re-address this in AM ( treated with versed and fentanyl for conscious sedation) and discuss goals of care, including PEG, hospice etc. * Altered MS- despite his inability to verbalize, I think he is quite capable of moderate decision making and appears to understand my questions and statements well. Subjective: Much better today and saturating 95% on RA Objective: Vital Signs Temp Pulse Resp BP Pulse Ox 37.1 C 82 30 H 120/99 H 100 04/03/17 08:00 04/03/17 11:33 04/03/17 11:33 04/03/17 10:00 04/03/17 11:33 Microbiology 04/02/17 10:00 Gram Stain - Final Lung Left Lobe - Bronchial Washings 04/02/17 10:00 Mycobacterial Smear (COLE) - Final Lung Left Lobe - Bronchial Washings Laboratory Results 04/03/17 05:15 04/03/17 05:15 04/02/17 04/03/17 04/04/17 05:59 05:59 05:59 Intake Total 4089 2920 Output Total 4000 1850 Balance 89 1070 PT 12.9 SEC (12.0-15.0) 03/29/17 17:25 INR 0.98 (0.83-1.16) 03/29/17 17:25 Physical Exam - Physical Exam General Appearance: alert, cachetic EENT: PERRL/EOMI, other (right eye deviates) Neck: supple Respiratory: decreased breath sounds (left), No respiratory distress Cardiac/Chest: regular rate, rhythm, No edema Abdomen: non-tender, soft, No distended Skin: normal color, warm/dry Lymphatic: no adenopathy Extremities: No pedal edema Neuro/Psych: alert, normal mood/affect ICD10 Worksheet Patient Problems: Problems Problem Status Onset Acute hypoxemic respiratory failure Acute Aspiration pneumonitis Acute Failure to thrive Acute Palliative care encounter Acute Severe sepsis Acute Traumatic brain injury Acute Dehydration Acute
[2017-04-03] MEDS: BUDESONIDE/FORMOTEROL 160/4.5 60 PUFFS/MDI IH SCH ×2 (16:17→22:59)
--- NOTE | 2017-04-03 16:54 | ASMTCMCOM ---
CM Note CM Note Notes: CM spoke with LISANDRO Coates at [facility]. She had no knowledge about a possible APS referral for guardianship and will follow up with LYNDSAY Junior at . Ethics continues to see pt to assess decisional capacity. MDs have separately discussed PEG placement with pt who continues to indicate his wish to have one. No decision made to pursue this yet. Pt has been able to make his needs known today. CM will continue to follow. Date Signed: 04/03/2017 04:54 PM Electronically Signed By:JAILENE Dykes
[2017-04-03] MEDS: methylPREDNISolone SOD SUCC 125 MG/2 ML VIAL IVP SCH (16:56)
[2017-04-03] MEDS: COLLAGENASE 30 GM OINTMENT TP SCH (17:01)
[2017-04-03 19:39] LABS: POTASSIUM 3.6 mEq/L (3.5-5.2)
[2017-04-03] MEDS: POTASSIUM Cl (KCl) 50 ML IV SCH ×3 (20:19→22:25)
--- NOTE | 2017-04-03 20:58 | GPN ---
[f rep st] PROCEDURE NOTE DATE OF PROCEDURE: 04/03/2017 PROCEDURE: Bronchoscopy. INDICATION: Severe mucus plugging and complete collapse of the left lung. CONSENT: Informed consent was obtained from the patient verbally prior to the administration of anes thesia. The risks and benefits of the procedure were explained in detail. The patient did agree to proceed. Of note, the patient is nonverbal but demonstrated clear understanding and answered yes and no questions quite appropriately. ANESTHESIA: Conscious sedation was achieved using a total of 2 mg IV Versed and 50 mcg IV fentanyl. Patient tolerated these well without complications. DESCRIPTION OF PROCEDURE: After the application of topical lidocaine, the bronchoscope was passed to a normal-appearing posterior pharynx and epiglottis. The vocal cords did appear to move appropriate ly, both abduction and adduction but did not close completely despite him following commands for phon ating letters A and E. The bronchoscope was easily passed through these vocal cords into the main tr achea where there were copious amounts of secretions. There were large mucus plugs and copious secre tions primarily in the left mainstem bronchus. There were multiple mucus plugs in this region. The bronchoscope had to be completely removed on 2 occasions to clean it and allow for adequate suction. Overall, the patient tolerated this well. Secretions were taken all the way down to the lower lobe airways as well as the left upper lobe. A quick look on the right side did not reveal any substantia l secretions on that side. Overall, patient tolerated the procedure well. A postprocedure chest x-r ay is pending at this time. /[id number]/MODL
[2017-04-04] MEDS: NS 1,000 ML IV SCH ×2 (04:00→18:04)
[2017-04-04] MEDS: ACETYLCYSTEINE 20% IH/PO 30 ML VIAL IH SCH ×2 (06:00→23:03)
[2017-04-04] MEDS: IPRATROPIUM/ALBUTEROL 3 ML DEYVIAL IH SCH ×4 (06:01→23:03)
[2017-04-04 06:05] LABS: % IMMATURE GRANULYOCYTES 0.8 % (0.0-1.1); ABSOLUTE IMMATURE GRANULOCYTES 0.05 10^3/uL (0.00-0.10); ADD DIFF? NO; ADD MORPH? NO; ADD SCAN? YES; FRAGMENT RBC FLAG 0 (0-99); HEMATOCRIT 34.8 % (40.0-51.0); HEMOGLOBIN 11.7 g/dL (13.7-17.5); LEFT SHIFT FLG 0 (0-99); LIPEMIA HEMOLYSIS FLAG 80 (0-99); MEAN CELL HEMOGLOBIN 29.3 pg (27.9-34.1); MEAN CELL HEMOGLOBIN CONCENTR. 33.6 g/dL (32.4-36.7); MEAN CELL VOLUME 87.2 fL (81.5-99.8); MEAN PLATELET VOLUME 10.1 fL (8.7-11.7); PLATELET CLUMPS FLAG 0 (0-99); PLATELET COUNT 479 10^3/uL (150-400); RED BLOOD CELL COUNT 3.99 10^6/uL (4.40-6.38); RED CELL DISTRIBUTION WIDTH 13.6 % (11.5-15.2)
[2017-04-04 06:17] LABS: ANION GAP 9 mEq/L (8-16); CALCIUM 8.4 mg/dL (8.5-10.4); CARBON DIOXIDE 22 mEq/l (22-31); CHLORIDE 108 mEq/L (97-110); CREATININE 0.5 mg/dL (0.7-1.3); GLOMERULAR FILTRATION RATE > 60; GLUCOSE 100 mg/dL (70-100); SODIUM 139 mEq/L (134-144)
[2017-04-04 06:36] LABS: ATYPICAL LYMPHOCYTE FLAG 160 (0-99)
[2017-04-04 06:58] LABS: SCAN NEGATIVE
[2017-04-04] MEDS: ERTAPENEM 1 GM in NS 100 ML IV SCH (08:48)
[2017-04-04] MEDS: ENOXAPARIN 40 MG/0.4 ML SYR SC SCH (08:48)
[2017-04-04] MEDS: methylPREDNISolone SOD SUCC 125 MG/2 ML VIAL IVP SCH (08:48)
[2017-04-04] MEDS: CHLORHEXIDINE GLUCONATE 15 ML UDL PO SCH ×2 (08:49→20:45)
[2017-04-04] MEDS: NICOTINE 21 MG/24 HR PATCH TD SCH (08:49)
[2017-04-04] MEDS: CITALOPRAM 20 MG TAB PO SCH (09:00)
[2017-04-04] MEDS: BUDESONIDE/FORMOTEROL 160/4.5 60 PUFFS/MDI IH SCH ×2 (09:27→20:46)
[2017-04-04] MEDS: COLLAGENASE 30 GM OINTMENT TP SCH (09:27)
[2017-04-04] MEDS: FAMOTIDINE 20 MG/NACL 50 ML IV SCH ×2 (09:27→20:45)
--- NOTE | 2017-04-04 11:13 | HOSPPROG ---
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, hx craniotomy # thrombocytosis - likely reactive # pressure injury - w/c bound # severe protein calorie malnutrition - BMI 13 # COPD/tobacco use # 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, not on CT neck - would like swallow study and esophagram, consider GI consult # hx sternotomy # dispo - MOST form - FCFT, no tube feeds but indicates to me that he would want TF's; ethics feels he has decisional capacity to decide on PEG Subjective: seems slightly less responsive today Objective: Vital Signs Temp Pulse Resp BP Pulse Ox 37.1 C 86 33 H 108/61 100 04/04/17 08:00 04/04/17 10:00 04/04/17 10:00 04/04/17 10:00 04/04/17 10:00 Microbiology 04/02/17 10:00 Gram Stain - Final Lung Left Lobe - Bronchial Washings Bronchial Washings Culture - Final Natalee Albicans Presumptive 03/29/17 22:22 Blood Culture - Final Blood Laboratory Results 04/04/17 05:45 04/04/17 05:45 04/03/17 04/04/17 04/05/17 05:59 05:59 05:59 Intake Total 2920 2611 Output Total 1850 2125 Balance 1070 486 PT 12.9 SEC (12.0-15.0) 03/29/17 17:25 INR 0.98 (0.83-1.16) 03/29/17 17:[address] Alvarez CXR personally reviewed - Physical Exam Constitutional: chronically ill appearing, cachectic Cardiovascular: regular rate and rhythym, no murmur, rub, or gallop Respiratory: no respiratory distress, no rales or rhonchi, clear to auscultation Gastrointestinal: normoactive bowel sounds, soft, non-tender abdomen, no palpable masses ICD10 Worksheet Patient Problems: Problems Problem Status Onset Failure to thrive Acute Dehydration Acute Acute hypoxemic respiratory failure Acute Aspiration pneumonitis Acute Severe sepsis Acute Traumatic brain injury Acute Palliative care encounter Acute
--- NOTE | 2017-04-04 13:52 | PDINTPN ---
Real Estate Associate Progress Note Assessment/Plan: Assessment/plan: 57 M with remote TBI, craniectomy without replacement of bone flap, and presumed COPD with ongoing smoking admitted from [facility] 03/29 with acute respiratory failure after being found down with a pulse. He had severe hypoxemia prior to and after intubation, and an emergent bronch revealed mucous plugging on the left. per balance staff inspector he was also disheveled with poor hygiene and a stage II decub on his back. At baseline he is reportedly non-verbal, but does go outside to smoke regularly. * Acute respiratory failure with hypoxemia requiring intubation, likely from aspiration pneumonia. Extubated 04/01 but high O2 requirement. CXR 04/02 showed complete white out of left lung, leading to bronch. Copious amounts of plugs and secretions noted and cleared easily with elimination of O2 requirement. However, repeat CXR 04/03 showed again complete white-out of left, so repeated bronch with similar results. Post procedure CXR with improvement, but mostly confined to RADHA. Added vest, symbicort, and solumedrol as well as dc'd IVF. Video swallow today shows severe aspiration and speech recommended NPO or hospice. * Metabolic acidosis- hyperchloremic metabolic acidosis, probably from NS resuscitation, now resolved after one liter HCO3. * Septic shock- improved and remains off pressors. Sputum cx with GNR; treated with meropenem. Lactate resolved. * Skin breakdown prior to hospital. Wound care to evaluate * TBI with CUT OUT OPERATOR shunt- clinically stable. * COPD- hyperinflation on CXR- change albuterol Q4 scheduled to prn. Added duoneb with mucomyst 04/01. See above * HTN- currently stable, holding home meds. * Hyperkalemia- likely hemolyzed specimen * Malnutrition?- he is very cachectic and may not be getting adequate nutrition - which may be on his own accord. [facility] balance staff inspector told CM that he eats OK. Tried to reach PCP (Dr. Lima; [phone]) but no answer. Unable to reach family despite multiple efforts. He was able to answer yes/no questions this AM so seemed reasonable for bronch consent. Will re-address this in AM ( treated with versed and fentanyl for conscious sedation) and discuss goals of care, including PEG, hospice etc. * Altered MS- despite his inability to verbalize, I think he is quite capable of moderate decision making and appears to understand my questions and statements well. Subjective: Stable overnight after bronch yesterday. Denies SOB and 100% on RA Objective: Vital Signs Temp Pulse Resp BP Pulse Ox 36.8 C 79 28 H 108/62 100 04/04/17 12:00 04/04/17 12:00 04/04/17 12:00 04/04/17 12:00 04/04/17 12:00 Microbiology 04/02/17 10:00 Gram Stain - Final Lung Left Lobe - Bronchial Washings Bronchial Washings Culture - Final Natalee Albicans Presumptive 03/29/17 22:22 Blood Culture - Final Blood Laboratory Results 04/04/17 05:45 04/04/17 05:45 04/03/17 04/04/17 04/05/17 05:59 05:59 05:59 Intake Total 2920 2611 Output Total 1850 2125 Balance 1070 486 PT 12.9 SEC (12.0-15.0) 03/29/17 17:25 INR 0.98 (0.83-1.16) 03/29/17 17:25 Physical Exam - Physical Exam General Appearance: alert, no apparent distress, cachetic EENT: PERRL/EOMI Neck: supple Respiratory: lungs clear, decreased breath sounds, No respiratory distress Cardiac/Chest: regular rate, rhythm, No edema Abdomen: non-tender, soft, No distended Skin: normal color, warm/dry Lymphatic: no adenopathy Extremities: No pedal edema Neuro/Psych: alert, normal mood/affect ICD10 Worksheet Patient Problems: Problems Problem Status Onset Acute hypoxemic respiratory failure Acute Aspiration pneumonitis Acute Failure to thrive Acute Palliative care encounter Acute Severe sepsis Acute Traumatic brain injury Acute Dehydration Acute
--- NOTE | 2017-04-04 17:43 | ASMTCMCOM ---
CM Note CM Note Notes: Reviewed chart re: d/c poc, pt's progress. Per rounds/ MD notes, pt w/ aspiration PNA, scheduled for video swallow study today. Per Dr. Alvarez, pt w/ moderate decision making capabilities. Feeding tube discussion still pending. Dr. Alvarez attempted to contact family multiple times w/o success. Discussed possibility of an LTAC upon d/c today, although pt may not qualify. If pt does receive a PEG tube, which he is requesting at this time, CM will need to confirm [facility] can still accept pt. CM will cont to follow. Date Signed: 04/04/2017 05:42 PM Electronically Signed By:Chrissy Buckner RN
[2017-04-04 18:30] LABS: POTASSIUM 3.9 mEq/L (3.5-5.2)
[2017-04-04] MEDS ORDERED: LORazepam 2 MG/ML INJ ONE (18:31)
[2017-04-04] MEDS ORDERED: POTASSIUM Cl (KCl) 50 ML IV ONE (19:45)
--- NOTE | 2017-04-04 20:37 | HOSPPROG ---
Hospitalist Progress Note Assessment/Plan: asked to medically clear patient for transfer to [facility] marked leukocytosis w elevated inflammatory markers and pending blood cx i'm not comfortable med clearing security called, patient agitated Objective: Vital Signs Temp Pulse Resp BP Pulse Ox 36.7 C 76 20 111/68 99 04/04/17 19:37 04/04/17 19:37 04/04/17 19:37 04/04/17 19:37 04/04/17 19:37 Microbiology 04/02/17 10:00 Gram Stain - Final Lung Left Lobe - Bronchial Washings Bronchial Washings Culture - Final Natalee Albicans Presumptive 03/29/17 22:22 Blood Culture - Final Blood Laboratory Results 04/04/17 05:45 04/04/17 18:00 04/03/17 04/04/17 04/05/17 05:59 05:59 05:59 Intake Total 2920 2611 398 Output Total 1850 2125 350 Balance 1070 486 48 PT 12.9 SEC (12.0-15.0) 03/29/17 17:25 INR 0.98 (0.83-1.16) 03/29/17 17:25 ICD10 Worksheet Patient Problems: Problems Problem Status Onset Acute hypoxemic respiratory failure Acute Aspiration pneumonitis Acute Failure to thrive Acute Palliative care encounter Acute Severe sepsis Acute Traumatic brain injury Acute Dehydration Acute
[2017-04-04] MEDS ORDERED: POTASSIUM Cl (KCl) 100 ML IV ONE (21:15)
[2017-04-04 22:07] LABS: ANION GAP 11 mEq/L (8-16); CALCIUM 8.5 mg/dL (8.5-10.4); CARBON DIOXIDE 20 mEq/l (22-31); CHLORIDE 110 mEq/L (97-110); CREATININE 0.4 mg/dL (0.7-1.3); GLOMERULAR FILTRATION RATE > 60; GLUCOSE 109 mg/dL (70-100); POTASSIUM 3.9 mEq/L (3.5-5.2); SODIUM 141 mEq/L (134-144)
[2017-04-05] MEDS: IPRATROPIUM/ALBUTEROL 3 ML DEYVIAL IH SCH ×4 (04:25→22:28)
[2017-04-05] MEDS: ACETYLCYSTEINE 20% IH/PO 30 ML VIAL IH SCH ×3 (04:25→22:27)
[2017-04-05 04:30] LABS: % IMMATURE GRANULYOCYTES 0.6 % (0.0-1.1); ABSOLUTE IMMATURE GRANULOCYTES 0.06 10^3/uL (0.00-0.10); ADD DIFF? NO; ADD MORPH? NO; ADD SCAN? YES; FRAGMENT RBC FLAG 0 (0-99); HEMATOCRIT 28.5 % (40.0-51.0); HEMOGLOBIN 9.7 g/dL (13.7-17.5); LEFT SHIFT FLG 0 (0-99); LIPEMIA HEMOLYSIS FLAG 90 (0-99); MEAN CELL HEMOGLOBIN 29.7 pg (27.9-34.1); MEAN CELL VOLUME 87.2 fL (81.5-99.8); MEAN PLATELET VOLUME 9.8 fL (8.7-11.7); PLATELET CLUMPS FLAG 30 (0-99); PLATELET COUNT 444 10^3/uL (150-400); RED BLOOD CELL COUNT 3.27 10^6/uL (4.40-6.38); RED CELL DISTRIBUTION WIDTH 13.9 % (11.5-15.2)
[2017-04-05 04:31] LABS: ATYPICAL LYMPHOCYTE FLAG 280 (0-99)
[2017-04-05 04:58] LABS: ANION GAP 5 mEq/L (8-16); CALCIUM 7.6 mg/dL (8.5-10.4); CARBON DIOXIDE 22 mEq/l (22-31); CHLORIDE 112 mEq/L (97-110); CREATININE 0.5 mg/dL (0.7-1.3); GLOMERULAR FILTRATION RATE > 60; GLUCOSE 84 mg/dL (70-100); POTASSIUM 3.5 mEq/L (3.5-5.2); SODIUM 139 mEq/L (134-144)
[2017-04-05 05:12] LABS: SCAN NEGATIVE
[2017-04-05] MEDS: POTASSIUM Cl (KCl) 50 ML IV SCH ×5 (05:34→22:30)
[2017-04-05 07:50] LABS: BASE EXCESS 0.5 mEq/L (-2.5-2.5); BICARBONATE 22 mEq/L (22-26); MEASURED OXYGEN SATURATION 90 % (92-95); PCO2 25 mmHg (34-38); PO2 56 mmHg (65-75); TCO2 23 mEq/L (23-27)
[2017-04-05 07:51] LABS: O2 CONCENTRATIION ROOM AIR % (0-100); P/F RATIO 0 RATIO
[2017-04-05] MEDS: FAMOTIDINE 20 MG/NACL 50 ML IV SCH ×2 (08:08→20:36)
[2017-04-05] MEDS: CHLORHEXIDINE GLUCONATE 15 ML UDL PO SCH ×2 (08:08→20:36)
[2017-04-05] MEDS: NICOTINE 21 MG/24 HR PATCH TD SCH (08:09)
[2017-04-05] MEDS: methylPREDNISolone SOD SUCC 125 MG/2 ML VIAL IVP SCH (08:11)
[2017-04-05] MEDS: ENOXAPARIN 40 MG/0.4 ML SYR SC SCH (08:14)
[2017-04-05] MEDS ORDERED: ALBUMIN 25% 100 ML SOLN IV ONE (08:37)
[2017-04-05] MEDS ORDERED: ALBUMIN 25% 100 ML IV ONE (08:45)
[2017-04-05] MEDS: ERTAPENEM 1 GM in NS 100 ML IV SCH (09:04)
--- NOTE | 2017-04-05 10:00 | PDINTPN ---
Minister Helper Progress Note Assessment/Plan: Assessment/plan: 57 M with remote TBI, craniectomy without replacement of bone flap, and presumed COPD with ongoing smoking admitted from [facility] 03/29 with acute respiratory failure after being found down with a pulse. He had severe hypoxemia prior to and after intubation, and an emergent bronch revealed mucous plugging on the left. per set staff fitter he was also disheveled with poor hygiene and a stage II decub on his back. At baseline he is reportedly non-verbal, but does go outside to smoke regularly. * Seizure? no clear etiology and head CT without change. No anticonvulsants given but neurology consult pending * Acute respiratory failure with hypoxemia requiring intubation, likely from aspiration pneumonia. Extubated 04/01 but high O2 requirement. CXR 04/02 showed complete white out of left lung, leading to bronch. Copious amounts of plugs and secretions noted and cleared easily with elimination of O2 requirement. However, repeat CXR 04/03 showed again complete white-out of left, so repeated bronch with similar results. Post procedure CXR with improvement, but mostly confined to RADHA. Added vest, symbicort, and solumedrol as well as dc'd IVF on . Video swallow hows severe aspiration and speech recommended NPO or hospice. Repeat CXR 04/05 shows continued improvement, but LLL still collapsed. ABG without CO2 retention but borderline O2 (on RA). Continue Abx, no bronch for today. * Metabolic acidosis- hyperchloremic metabolic acidosis, probably from NS resuscitation, now resolved after one liter HCO3. * Septic shock- improved and remains off pressors. Sputum cx with GNR; treated with meropenem. Lactate resolved. * Skin breakdown prior to hospital. 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 * COPD- hyperinflation on CXR- change albuterol Q4 scheduled to prn. Added duoneb with mucomyst 04/01. See above * HTN- currently stable, holding home meds. * Hyperkalemia- likely hemolyzed specimen * Malnutrition?- he is very cachectic and may not be getting adequate nutrition - which may be on his own accord. [facility] set staff fitter told CM that he eats OK. Tried to reach PCP (Dr. Lima; [phone]) but no answer. * Altered MS- Todays interaction calls into question his ability to understand complex decisions- eg the risk of eating despite severe aspiration which includes , especially without intubation if necessary. He remains full code , but I think ongoing efforts to appoint a legal guardian are needed for his waxing/waning decisional capacities. One possible short term action could include letting him eat, to circumvent his perseveration, then trying to complete a DNR discussion, PEG discussion, hospice, etc. His systemic steroids are not likely helping this situation, so will reduce the dose for now and consider dc soon. 04/05/17 09:53 Subjective: Reported seizure like activity after transferring to new bed overnight, and again later in evening. Brief desaturations resolved to RA. He is very fixating/ perseverating about eating today. Objective: Vital Signs Temp Pulse Resp BP Pulse Ox 36.4 C 76 24 H 94/58 L 99 04/05/17 08:00 04/05/17 09:04 04/05/17 09:04 04/05/17 09:04 04/05/17 09:04 Microbiology 04/02/17 10:00 Gram Stain - Final Lung Left Lobe - Bronchial Washings Bronchial Washings Culture - Final Natalee Albicans Presumptive 03/29/17 22:22 Blood Culture - Final Blood Laboratory Results 04/05/17 04:20 04/05/17 04:20 04/04/17 04/05/17 04/06/17 05:59 05:59 05:59 Intake Total 2611 1118 Output Total 2125 900 Balance 486 218 PT 12.9 SEC (12.0-15.0) 03/29/17 17:25 INR 0.98 (0.83-1.16) 03/29/17 17:25 Physical Exam - Physical Exam General Appearance: alert, no apparent distress, cachetic EENT: PERRL/EOMI Neck: supple Respiratory: normal breath sounds, rhonchi (few), No respiratory distress Cardiac/Chest: regular rate, rhythm, No edema Abdomen: normal bowel sounds, non-tender, soft, No distended Skin: normal color, warm/dry, No cyanosis, No rash Lymphatic: no adenopathy Extremities: No pedal edema, No calf tenderness Neuro/Psych: alert, cognition abnormalities ICD10 Worksheet Patient Problems: Problems Problem Status Onset Acute hypoxemic respiratory failure Acute Aspiration pneumonitis Acute Failure to thrive Acute Palliative care encounter Acute Severe sepsis Acute Traumatic brain injury Acute Dehydration Acute
[2017-04-05] MEDS: BUDESONIDE/FORMOTEROL 160/4.5 60 PUFFS/MDI IH SCH ×2 (11:04→22:24)
--- NOTE | 2017-04-05 13:24 | HOSPPROG ---
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 He indicated to me two days ago that he would want a PEG and seemed consistent in this wish. Today he is mostly fixated on eating and is not interested in other options - his mental status is worse overall. The ethical dilemma is that he is questionably decisional today, but want to eat. If he eats he will aspirate, and he wants intubation. We are going to hold his steroids which seemed to correlate with his worsened mental status. Hopefully he will be able to participate further in his care. Certainly terminal gauger (and possibly short term) he will need a decision maker, but no family or friends are involved. Subjective: i tried to see him three times - the third time he needed to be changed and did not want to discuss anything further Objective: Vital Signs Temp Pulse Resp BP Pulse Ox 36.4 C 78 19 110/62 98 04/05/17 08:00 04/05/17 10:00 04/05/17 10:00 04/05/17 10:00 04/05/17 10:00 Microbiology 04/02/17 10:00 Gram Stain - Final Lung Left Lobe - Bronchial Washings Bronchial Washings Culture - Final Natalee Albicans Presumptive 03/29/17 22:22 Blood Culture - Final Blood Laboratory Results 04/05/17 04:20 04/05/17 04:20 04/04/17 04/05/17 04/06/17 05:59 05:59 05:59 Intake Total 2611 1118 Output Total 2125 900 Balance 486 218 PT 12.9 SEC (12.0-15.0) 03/29/17 17:25 INR 0.98 (0.83-1.16) 03/29/17 17:[address] Alvarez on ICU rounds CXR personally reviewed - Physical Exam Constitutional: unkempt, cachectic Cardiovascular: regular rate and rhythym, no murmur, rub, or gallop Respiratory: other (L sided rales), No reduced air movement, No expiratory wheeze Gastrointestinal: normoactive bowel sounds, soft, non-tender abdomen ICD10 Worksheet Patient Problems: Problems Problem Status Onset Failure to thrive Acute Dehydration Acute Acute hypoxemic respiratory failure Acute Aspiration pneumonitis Acute Severe sepsis Acute Traumatic brain injury Acute Palliative care encounter Acute
[2017-04-05] MEDS: COLLAGENASE 30 GM OINTMENT TP SCH (14:18)
--- NOTE | 2017-04-05 14:18 | NEUROPROG ---
Assessment: HOSPITAL NEUROLOGY CONSULT REQUESTING: Grant Dumont MD REASON: possible seizure HPI: 57 year old assisted resident with a history of TBI with resultant static encephalopathy/baseline mutism, posterior craniectomy, VPS, alcohol abuse, COPD/ tobacco abuse who was hospitalized here starting 03/29 after being found down in respiratory arrest at his [facility]. Patient was resuscitated and found to have severe sepsis with PNA/aspiration and mucous plugging. Has been having ongoing supportive measures through the hosptial internal medicaine, critical care and ID teams. Last night, patient had 2 reported episodes of shaking. This was apparently concerning for seizure. I discussed this with Dr. Myrick, his primary hospital reception specialist. Dr. Myrick was given report of this on rounds this AM, but no details were able to be provided. RN witness to the events was unable to be reached. Patient has no known history of seizure and no known history of exposure to antiseizure drugs. His epilepsy risk includes his severe TBI and intracranial instrumentation. Patient is unable to supply any history due to mutism. ROS: Unobtainable from patient due to mutism ALLERGIES AND MEDS: As recorded in the EMR - reviewed and reconciled PFSH: As per the intake H&P by Dr. Velázquez from 03/29 EXAM: This is a limited exam due to patient's static encephalopathy and mutism. GEN: cachectic, appearing chronically ill HEENT: severe bitemporal wasting, right posterior head region appears a little sunken NECK: supple, nontender, no meningismus CV: RRR s1 s2 wo m/r/c/g. Carotid pulses 2+ wo bruit NEURO: MS: eyes open, mute, follows some simple appendicular commands with prompting, unable to assess higher cortical function CN: pupils 3mm round and sluggishly reactive. Unable to assess fundi due to patient movement. Blinks to threat OU. Primary with exotropia OD. Some limited adduction OD. Grimace to nox stim of the face. Face appears symmetric. Hearing seemingly intact, as he can follow some commands, but unable to assess laterality. He will not protrude tongue and I can't visualize posterior pharynx. Turns his head to follow examiner to each side. MOTOR: severe cachexia and muscle atrophy throughout. No adventitial movements. Sustains antigravity with arms and seems to activate legs bilaterally and symmetrically SENSORY: withdraws to nox stim in all extremities. Cannot assess for double simulataneous stim. COORD: no gross ataxia - can't perform FN/HS REFLEX: plantars equivocal. No clonus. He is activating so can't assess DTRs GAIT: not safe to assess DATA REVIEW: Labs reviewed in EMR PERSONALLY INTERPRETED RESULTS AND DATA: CT head wo - nothing acute. Stable right parietal approach VPS. Encephalomalacia bilateral frontal lobes moreso on the right, right parietal, right temporal and right cerebellar lobes. Craniotomy defect right frontoparietal and craniectomy defect near the vertex. IMPRESSION AND RECOMMENDATIONS: // SHAKING SPELL Patient with 2 episodes of shaking without any eyewitness description available. He has a substrate for seizure, but it is not clear if these events were truly epileptogenic. For now, I would hold any antiseizure drug. At most , if these events were seizure, they are likely provoked from his acute illness. Would continue to observe. If there are any subsequent episodes of concern, it would be helpful to have a detailed description documented, including eye opening/closure, description of movements, duration of movements, ability to follow commands with spell, etc... This was discussed with Dr. Myrick, who is in agreement with the plan. Will sign off. please recall PRN. Objective: Vital Signs Temp Pulse Resp BP Pulse Ox 36.4 C 78 19 110/62 98 04/05/17 08:00 04/05/17 10:00 04/05/17 10:00 04/05/17 10:00 04/05/17 10:00 Microbiology 04/02/17 10:00 Gram Stain - Final Lung Left Lobe - Bronchial Washings Bronchial Washings Culture - Final Natalee Albicans Presumptive Laboratory Results 04/05/17 04:20 04/05/17 04:20 04/04/17 04/05/17 04/06/17 05:59 05:59 05:59 Intake Total 2611 1118 Output Total 2125 900 Balance 486 218 PT 12.9 SEC (12.0-15.0) 03/29/17 17:25 INR 0.98 (0.83-1.16) 03/29/17 17:25 Allergies/Adverse Reactions: No Known Allergies Allergy (Unverified 03/17/17 12:06)
[2017-04-05 18:48] LABS: POTASSIUM 3.5 mEq/L (3.5-5.2)
[2017-04-05] MEDS: NS 1,000 ML IV SCH (18:55)
[2017-04-05] MEDS: LORazepam 2 MG/ML INJ IVP PRN (21:49)
[2017-04-06] MEDS: NS 1,000 ML IV SCH (00:28)
[2017-04-06] MEDS: ACETYLCYSTEINE 20% IH/PO 30 ML VIAL IH SCH ×4 (00:28→17:07)
[2017-04-06] MEDS: POTASSIUM Cl (KCl) 50 ML IV SCH ×3 (00:29→23:55)
[2017-04-06 04:59] LABS: % IMMATURE GRANULYOCYTES 0.3 % (0.0-1.1); ABSOLUTE IMMATURE GRANULOCYTES 0.03 10^3/uL (0.00-0.10); ADD DIFF? NO; ADD MORPH? NO; ADD SCAN? YES; FRAGMENT RBC FLAG 0 (0-99); HEMATOCRIT 35.2 % (40.0-51.0); HEMOGLOBIN 11.8 g/dL (13.7-17.5); LEFT SHIFT FLG 0 (0-99); LIPEMIA HEMOLYSIS FLAG 80 (0-99); MEAN CELL HEMOGLOBIN 29.4 pg (27.9-34.1); MEAN CELL HEMOGLOBIN CONCENTR. 33.5 g/dL (32.4-36.7); MEAN CELL VOLUME 87.6 fL (81.5-99.8); MEAN PLATELET VOLUME 10.1 fL (8.7-11.7); PLATELET CLUMPS FLAG 10 (0-99); PLATELET COUNT 553 10^3/uL (150-400); RED BLOOD CELL COUNT 4.02 10^6/uL (4.40-6.38); RED CELL DISTRIBUTION WIDTH 14.2 % (11.5-15.2)
[2017-04-06 05:01] LABS: ATYPICAL LYMPHOCYTE FLAG 130 (0-99)
[2017-04-06] MEDS: LORazepam 2 MG/ML INJ IVP PRN ×3 (05:06→20:50)
[2017-04-06 05:17] LABS: ALANINE AMINOTRANSFERASE 46 IU/L (21-72); ALBUMIN 2.9 g/dL (3.5-5.0); ALKALINE PHOSPHATASE 80 IU/L (38-126); ANION GAP 9 mEq/L (8-16); ASPARTATE AMINOTRANSFERASE 26 IU/L (17-59); BILIRUBIN,TOTAL 0.7 mg/dL (0.1-1.4); CALCIUM 8.7 mg/dL (8.5-10.4); CARBON DIOXIDE 23 mEq/l (22-31); CHLORIDE 106 mEq/L (97-110); CREATININE 0.4 mg/dL (0.7-1.3); GLOMERULAR FILTRATION RATE > 60; GLUCOSE 82 mg/dL (70-100); SODIUM 138 mEq/L (134-144); TOTAL PROTEIN 5.3 g/dL (6.3-8.2)
[2017-04-06 05:21] LABS: SCAN NEGATIVE
[2017-04-06] MEDS: IPRATROPIUM/ALBUTEROL 3 ML DEYVIAL IH SCH ×4 (05:31→21:31)
[2017-04-06] MEDS: CHLORHEXIDINE GLUCONATE 15 ML UDL PO SCH (08:28)
[2017-04-06] MEDS: FAMOTIDINE 20 MG/NACL 50 ML IV SCH ×2 (08:28→20:50)
[2017-04-06] MEDS: ENOXAPARIN 40 MG/0.4 ML SYR SC SCH (08:28)
[2017-04-06] MEDS: NICOTINE 21 MG/24 HR PATCH TD SCH (08:29)
[2017-04-06] MEDS: COLLAGENASE 30 GM OINTMENT TP SCH (08:38)
[2017-04-06] MEDS: ERTAPENEM 1 GM in NS 100 ML IV SCH (08:47)
--- NOTE | 2017-04-06 09:06 | PDINTPN ---
Hr Business Partner Progress Note Assessment/Plan: Assessment/Plan: * Possible seizure no clear etiology and head CT without change. No anticonvulsants for now. * Acute respiratory failure with hypoxemia requiring intubation, likely from aspiration pneumonia. Extubated 04/01 but high O2 requirement. * Mucus plugging-is undergone bronchoscopy x3. Respiratory status appears stable at this time. -will check a chest x-ray today -continue aggressive respiratory toilet * Metabolic acidosis- resolved * Septic shock- resolved * Skin breakdown/decubitus ulcer prior to hospital. 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 * COPD- hyperinflation on CXR- change albuterol Q4 scheduled to prn. Added duoneb with mucomyst 04/01. * HTN- currently stable, holding home meds. * Hyperkalemia- likely hemolyzed specimen * Malnutrition?- he is very cachectic and may not be getting adequate nutrition - which may be on his own accord. Markie Gifford junior staff accountant told CM that he eats OK. -will attempt to reach PCP (Dr. Lima; [phone]) * Altered MS- Todays interaction calls into question his ability to understand complex decisions- eg the risk of eating despite severe aspiration which includes , especially without intubation if necessary. He remains full code , but I think ongoing efforts to appoint a legal guardian are needed for his waxing/waning decisional capacities. One possible short term action could include letting him eat, to circumvent his perseveration, then trying to complete a DNR discussion, PEG discussion, hospice, etc. His systemic steroids are not likely helping this situation, so will reduce the dose for now and consider dc soon. -will likely need guardian Case discussed with nursing. Subjective: Awake, but not alert. Appears to be resting comfortably though. Objective: Vital Signs Temp Pulse Resp BP Pulse Ox 36.9 C 67 16 80/50 L 99 04/06/17 04:00 04/06/17 08:00 04/06/17 08:00 04/06/17 08:00 04/06/17 08:00 Laboratory Results 04/06/17 04:35 04/06/17 04:35 04/05/17 04/06/17 04/07/17 05:59 05:59 05:59 Intake Total 1118 1718 Output Total 900 4650 Balance 218 -2932 PT 12.9 SEC (12.0-15.0) 03/29/17 17:25 INR 0.98 (0.83-1.16) 03/29/17 17:25 Physical Exam - Physical Exam General Appearance: other (Awake), No alert EENT: PERRL/EOMI Neck: non-tender, full range of motion, supple, normal inspection Respiratory: crackles (Left base), No respiratory distress, No wheezing Cardiac/Chest: normal peripheral pulses, regular rate, rhythm Abdomen: normal bowel sounds, non-tender, soft Male Genitalia: deferred Rectal: deferred Extremities: normal range of motion, non-tender ICD10 Worksheet Patient Problems: Problems Problem Status Onset Acute hypoxemic respiratory failure Acute Aspiration pneumonitis Acute Failure to thrive Acute Palliative care encounter Acute Severe sepsis Acute Traumatic brain injury Acute Dehydration Acute
[2017-04-06] MEDS: BUDESONIDE/FORMOTEROL 160/4.5 60 PUFFS/MDI IH SCH ×2 (10:55→21:33)
--- NOTE | 2017-04-06 14:14 | HOSPPROG ---
Hospitalist Progress Note Assessment/Plan: 57 yo M with chronic encephalopathy 2/2 TBI pw severe sepsis and pna # severe sepsis - d/t pna - no pressors have been needed # aspiration pna: remains on invanz given continued purulent secretions, now day 9, klebsiella in sputum, failed swallow and remains high aspiration risk but difficult to determine if patient would want peg tube--as below # mucous plug with L lung collapse - s/p bronch 04/03, 04/02 and 03/29 - repeat cxr personally reviewed with continued dense LLL consolidation -pulm following, no need for bronch currently # acute resp failure/resp arrest - extubated 04/02, was in the 60s on arrival # acute and chronic encephalopathy - non-verbal at baseline but currently essentially completely non responsive where as previously was able to answer yes /no questions apparently. Raises difficulty with decision making as below. 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 # goals of care: have been unable to reach patients POA and patient is completely non verbal. Apparently he has given the impression that he wants a PEG tube in the recent past, but unclear how much he understood of that given his current mental status. Ethics involved. Would favor continuing to honor his MOST form at this point given inability to discuss his goals of care. Patient new to my care. Care plan reviewed with Dr. Mcmahan and multidisciplinary team on rounds. Care plan reviewed with ethics. Subjective: patient remains unresponsive, extremely cachectic Objective: Vital Signs Temp Pulse Resp BP Pulse Ox 36.9 C 78 28 H 100/52 L 97 04/06/17 11:46 04/06/17 11:46 04/06/17 11:46 04/06/17 11:46 04/06/17 11:46 Laboratory Results 04/06/17 04:35 04/06/17 04:35 04/05/17 04/06/17 04/07/17 05:59 05:59 05:59 Intake Total 1118 1718 Output Total 900 4650 Balance 218 -2932 PT 12.9 SEC (12.0-15.0) 03/29/17 17:25 INR 0.98 (0.83-1.16) 03/29/17 17:25 cachectic completely unresponsive anicteric op clear rrr coarse bs throughout soft nt no cce warm dry moves spontaneously, does not follow commands, tracks intermittently with eyes ICD10 Worksheet Patient Problems: Problems Problem Status Onset Acute hypoxemic respiratory failure Acute Aspiration pneumonitis Acute Failure to thrive Acute Palliative care encounter Acute Severe sepsis Acute Traumatic brain injury Acute Dehydration Acute
[2017-04-06 21:13] LABS: POTASSIUM 3.5 mEq/L (3.5-5.2)
[2017-04-07] MEDS: POTASSIUM Cl (KCl) 50 ML IV SCH ×3 (00:46→23:50)
[2017-04-07] MEDS: IPRATROPIUM/ALBUTEROL 3 ML DEYVIAL IH SCH ×4 (04:58→23:37)
[2017-04-07 06:00] LABS: POTASSIUM 3.8 mEq/L (3.5-5.2)
[2017-04-07] MEDS: ERTAPENEM 1 GM in NS 100 ML IV SCH (07:54)
[2017-04-07] MEDS: ENOXAPARIN 40 MG/0.4 ML SYR SC SCH (07:55)
[2017-04-07] MEDS: FAMOTIDINE 20 MG/NACL 50 ML IV SCH ×2 (07:55→20:45)
[2017-04-07] MEDS: NICOTINE 21 MG/24 HR PATCH TD SCH (07:55)
[2017-04-07] MEDS ORDERED: POTASSIUM Cl (KCl) 50 ML IV ONE (08:16)
[2017-04-07] MEDS ORDERED: POTASSIUM Cl (KCl) 100 ML IV ONE (08:30)
--- NOTE | 2017-04-07 08:50 | PDINTPN ---
Advertising Director Progress Note Assessment/Plan: Assessment/Plan: * Possible seizure no clear etiology and head CT without change. No anticonvulsants for now. * Acute respiratory failure with hypoxemia requiring intubation, likely from aspiration pneumonia. Extubated 04/01 but high O2 requirement. * Mucus plugging-is undergone bronchoscopy x3. Somewhat rhonchorous on exam -chest x-ray yesterday mostly unchanged -continue aggressive respiratory toilet. Will try vest * Metabolic acidosis- resolved * Septic shock- resolved * Skin breakdown/decubitus ulcer prior to hospital. 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 * COPD- hyperinflation on CXR- change albuterol Q4 scheduled to prn. Added duoneb with mucomyst 04/01. * HTN- currently stable, holding home meds. * Hyperkalemia- likely hemolyzed specimen * Severe Malnutrition- he is very cachectic and may not be getting adequate nutrition- which may be on his own accord. Markie Gifford staff writer told CM that he eats OK. * Altered MS- Todays interaction calls into question his ability to understand complex decisions- eg the risk of eating despite severe aspiration which includes , especially without intubation if necessary. He remains full code , but I think ongoing efforts to appoint a legal guardian are needed for his waxing/waning decisional capacities. One possible short term action could include letting him eat, to circumvent his perseveration, then trying to complete a DNR discussion, PEG discussion, hospice, etc. His systemic steroids are not likely helping this situation, so will reduce the dose for now and consider dc soon. -will likely need guardian Case discussed with nursing. Subjective: Awake. No current complaints. Objective: Vital Signs Temp Pulse Resp BP Pulse Ox 37.2 C 70 19 100/56 L 96 04/07/17 08:00 04/07/17 08:00 04/07/17 08:00 04/07/17 08:00 04/07/17 08:00 Laboratory Results 04/06/17 04:35 04/07/17 05:10 04/06/17 04/07/17 04/08/17 05:59 05:59 05:59 Intake Total 171 1737 Output Total 4690 2225 Balance -2932 -488 PT 12.9 SEC (12.0-15.0) 03/29/17 17:25 INR 0.98 (0.83-1.16) 03/29/17 17:25 Physical Exam - Physical Exam General Appearance: alert, no apparent distress, cachetic EENT: PERRL/EOMI, normal ENT inspection, pharynx normal, TMs normal Neck: non-tender, full range of motion, supple, normal inspection Respiratory: rhonchi (Scattered throughout all lung monae), No respiratory distress, No wheezing Cardiac/Chest: normal peripheral pulses, regular rate, rhythm Peripheral Pulses: 2+: carotid (R), carotid (L), femoral (R), femoral (L), dorsalis-pedis (R), dorsalis-pedis (L) Abdomen: normal bowel sounds, non-tender, soft Male Genitalia: deferred Rectal: deferred ICD10 Worksheet Patient Problems: Problems Problem Status Onset Acute hypoxemic respiratory failure Acute Aspiration pneumonitis Acute Failure to thrive Acute Palliative care encounter Acute Severe sepsis Acute Traumatic brain injury Acute Dehydration Acute
[2017-04-07] MEDS: ACETYLCYSTEINE 20% IH/PO 30 ML VIAL IH SCH ×2 (11:31→23:37)
[2017-04-07] MEDS: BUDESONIDE/FORMOTEROL 160/4.5 60 PUFFS/MDI IH SCH ×2 (11:35→21:58)
--- NOTE | 2017-04-07 12:34 | HOSPPROG ---
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 # mucous plug with L lung collapse - s/p bronch 04/03, 04/02 and 03/29 - repeat cxr personally reviewed with continued dense LLL consolidation -pulm following, no need for bronch currently # acute resp failure/resp arrest - extubated 04/02, was in the 60s on arrival, now on RA # acute and chronic encephalopathy - non-verbal at baseline and here intermittently attempting to communicate but voice essentially inaudible and has not been willing to try writing either. Decision making difficult due to this. 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 # goals of care: have been unable to reach patients POA and patient remains either non verbal or at the least very challenging to understand. Ethics, palliative involved and will need legal involved as well at this point. Care plan reviewed with Dr. Mcmahan and multidisciplinary team on rounds. Subjective: no significant overnight events, patient is currently awake and making noises but nothing articulate or understandable Objective: Vital Signs Temp Pulse Resp BP Pulse Ox 37.2 C 72 26 H 100/56 L 97 04/07/17 08:00 04/07/17 11:36 04/07/17 11:36 04/07/17 08:00 04/07/17 11:36 Microbiology 04/02/17 10:00 Mycobacterial Smear (COLE) - Final Lung Left Lobe - Bronchial Washings Laboratory Results 04/06/17 04:35 04/07/17 05:10 04/06/17 04/07/17 04/08/17 05:59 05:59 05:59 Intake Total 1718 1737 Output Total 4650 2225 Balance -2932 -488 PT 12.9 SEC (12.0-15.0) 03/29/17 17:25 INR 0.98 (0.83-1.16) 03/29/17 17:25 cachectic awake non verbal anicteric op clear rrr no mrg coarse bs soft nt nd no cce warm dry well perfused awake, intermittently follows commands ICD10 Worksheet Patient Problems: Problems Problem Status Onset Failure to thrive Acute Dehydration Acute Acute hypoxemic respiratory failure Acute Aspiration pneumonitis Acute Severe sepsis Acute Traumatic brain injury Acute Palliative care encounter Acute
[2017-04-07] MEDS: NS 1,000 ML IV SCH (14:25)
[2017-04-07] MEDS: COLLAGENASE 30 GM OINTMENT TP SCH (14:46)
--- NOTE | 2017-04-07 17:59 | ASMTCMCOM ---
CM Note CM Note Notes: Contacts made Tedangélica Douglasor regarding patient's Decisional Capacity. Spoke to the DON who reports that his decisions at the facility were limited and geared to wanting to eat and smoke "yes". DON reported that she and the facility SWer did not feel that the patient was decisional. The last physician who saw patient thought that he needed a palliative consult leading to Hospice and was going to make an APS call to ask for Guardianship. Patient became hospitalized and these reports weren't made. Patient has pulled out an N-G feeding tube. His MOST form written in 2016 states that he does not want artificial feeding and that he wanted to be Full COR. Asked Muscatinelorenzo Gifford to have Jeffry Blackwood NP who signed the MOST form to call to share her thoughts about the patient's wishes. Have not heard back from her. [facility] and [facility] Legal have been involved. Patient was transferred to . Date Signed: 04/07/2017 05:58 PM Electronically Signed By:Evelin Garrison LCSW
[2017-04-07 21:26] LABS: POTASSIUM 3.5 mEq/L (3.5-5.2)
[2017-04-08] MEDS: POTASSIUM Cl (KCl) 50 ML IV SCH (01:25)
[2017-04-08 05:42] LABS: POTASSIUM 3.8 mEq/L (3.5-5.2)
[2017-04-08] MEDS: IPRATROPIUM/ALBUTEROL 3 ML DEYVIAL IH SCH ×4 (06:11→21:37)
[2017-04-08] MEDS ORDERED: POTASSIUM Cl (KCl) 100 ML IV ONE (07:01)
[2017-04-08] MEDS: FAMOTIDINE 20 MG/NACL 50 ML IV SCH (08:01)
[2017-04-08] MEDS: ENOXAPARIN 40 MG/0.4 ML SYR SC SCH (08:02)
[2017-04-08] MEDS: NICOTINE 21 MG/24 HR PATCH TD SCH (08:03)
[2017-04-08] MEDS: COLLAGENASE 30 GM OINTMENT TP SCH (08:12)
[2017-04-08] MEDS: BUDESONIDE/FORMOTEROL 160/4.5 60 PUFFS/MDI IH SCH ×2 (10:39→21:38)
[2017-04-08] MEDS: ACETYLCYSTEINE 20% IH/PO 30 ML VIAL IH SCH ×2 (10:39→21:45)
--- NOTE | 2017-04-08 14:12 | ASMTCMCOM ---
CM Note CM Note Notes: 04/08/2017 Case Management Note: Attended care conference with Chapo Blanco from legal, Ladan Sanchez from ethics, Ramin Pinto from Ethics and Twila RODRIGUEZ from Palliative. Please see respective notes for details. Case Management faxed referral to [facility]. Spoke w/ [facility] senior marketing coordinator, full code status will not impede hospice initiation. [facility] evaluating pt for appropriateness of placement in hospice program. Case Management waiting to hear from [facility]. RN notified of outcome of meeting. Case Management to follow. Date Signed: 04/08/2017 02:12 PM Electronically Signed By:Talya Gonzales RN
--- NOTE | 2017-04-08 15:48 | PDPCPN ---
Palliative Care Progress Note Assessment/Plan: HPI: Luis E Fischer is a 57 yo male with PMH HTN, ETOH abuse, TBI with dementia, and COPD admitted to the hospital after being found down at [facility] for an unknown length of time. Emergently intubated in the ED after arriving in respiratory failure and hypoxic to 68%. Bronch revealed large mucous plugging. Also with sepsis likely to PNA. Resp status has improved, extubated but continues to be NPO after failed swallow eval with waxing/waning alertness and ? decisional capacity. Palliative care consulted for complex medical decision making. Met with Luis E today along with Ladan from Ethics. Did not seem to be able to indicate decisions and mostly just nodded his head Yes. With some audible gurgling but appears comfortable in no distress. Assessment: Physical: - Pain: appears comfortable -tylenol PRN - turn and reposition - weakness - nursing care - dysphagia - failed VFSS - MOST form with no artificial nutrition selected. - recommend allowing quality of life with oral feedings in safest manner possible. Emotional/psychological: Acute on chronic encephalopathy: - maintain normal routines - avoid sedating medication - haldol is best for any agitation related to confusion Advanced Care Planning: Is patient decisional?: No Code Status: FULL MD POA: ethics working on proxy. Plan: MDproxy to help support patient's decisions. He appears to want to eat food and thus should respect his MOST form, not place a PEG, and allow him to eat with focus this be on for pleasure and quality of life. Subjective: shakes head yes/no to some questions Objective: Vital Signs Temp Pulse Resp BP Pulse Ox 36.2 C 76 28 H 96/62 L 89 L 04/08/17 11:59 04/08/17 11:59 04/08/17 11:59 04/08/17 11:59 04/08/17 11:59 Microbiology 04/02/17 10:00 Mycobacterial Smear (COLE) - Final Lung Left Lobe - Bronchial Washings Laboratory Results 04/06/17 04:35 04/08/17 05:05 04/07/17 04/08/17 04/09/17 05:59 05:59 05:59 Intake Total 1737 456 25 Output Total 2224 1775 450 Balance -488 -1319 -425 PT 12.9 SEC (12.0-15.0) 03/29/17 17:25 INR 0.98 (0.83-1.16) 03/29/17 17:25 Physical Exam - Physical Exam General Appearance: alert, cachetic Respiratory: No respiratory distress, No accessory muscle use Skin: normal color, warm/dry Extremities: No pedal edema Neuro/Psych: alert ICD10 Worksheet Patient Problems: Problems Problem Status Onset Acute hypoxemic respiratory failure Acute Aspiration pneumonitis Acute Failure to thrive Acute Palliative care encounter Acute Severe sepsis Acute Traumatic brain injury Acute Dehydration Acute - ICD10 Problem Qualifiers (1) Palliative care encounter
--- NOTE | 2017-04-08 16:26 | HOSPPROG ---
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 # goals of care: met with multidisciplinary team including case management, ethics, palliative care, legal. Complex situation. Patient has a MOST form stating full code but no tube feeds. Has had interactions with MD/JULIA in the past where he has seemed to indicate he would want a PEG tube placed, but then completely non verbal and not interactive for days on end. Has been NPO for aspiration risk, and given his MOST form, no PEG has been placed. Today patient is more alert. Patient met with Ladan of ethics and clearly stated he did not want a PEG tube, stated he wanted to eat and smoke. I met with him together with nurse Lagunas 10 minutes later and asked the same question -- to me he answered yes that he did want a PEG tube, but also answered that he did want to eat and most consistently asked several times to smoke. At this time there remains much uncertainty as to whether he truly has any decision making capacity. He will seem clear for a minute but his answers are not consistent from one moment to the next. At this time, patient is clearly lacking capacity. Unclear if he has truly had consistent capacity in the past or not. Given that his MOST form is clear that he does not want PEG tube placed, will have patient start trial feedings. Explained to him that he may have issues with aspirating again. He is full code. We will look to have a proxy decision maker assigned. Subjective: no significant overnight events, patient more alert today Objective: Vital Signs Temp Pulse Resp BP Pulse Ox 36.2 C 76 28 H 96/62 L 89 L 04/08/17 11:59 04/08/17 11:59 04/08/17 11:59 04/08/17 11:59 04/08/17 11:59 Microbiology 04/02/17 10:00 Mycobacterial Smear (COLE) - Final Lung Left Lobe - Bronchial Washings Laboratory Results 04/06/17 04:35 04/08/17 05:05 04/07/17 04/08/17 04/09/17 05:59 05:59 05:59 Intake Total 1737 456 25 Output Total 2225 1775 450 Balance -488 -1319 -425 PT 12.9 SEC (12.0-15.0) 03/29/17 17:25 INR 0.98 (0.83-1.16) 03/29/17 17:25 cachectic awake non verbal anicteric op clear rrr no mrg coarse bs soft nt nd no cce warm dry well perfused awake, intermittently follows commands ICD10 Worksheet Patient Problems: Problems Problem Status Onset Acute hypoxemic respiratory failure Acute Aspiration pneumonitis Acute Failure to thrive Acute Palliative care encounter Acute Severe sepsis Acute Traumatic brain injury Acute Dehydration Acute
[2017-04-09] MEDS: FAMOTIDINE 20 MG/NACL 50 ML IV SCH ×3 (00:08→21:04)
[2017-04-09] MEDS: NS 1,000 ML IV SCH ×2 (00:08→16:37)
[2017-04-09 04:46] LABS: POTASSIUM 3.6 mEq/L (3.5-5.2)
[2017-04-09] MEDS: POTASSIUM Cl (KCl) 100 ML IV SCH ×4 (06:01→23:21)
[2017-04-09] MEDS: IPRATROPIUM/ALBUTEROL 3 ML DEYVIAL IH SCH ×4 (06:05→22:17)
[2017-04-09] MEDS: NICOTINE 21 MG/24 HR PATCH TD SCH (08:47)
[2017-04-09] MEDS: ENOXAPARIN 40 MG/0.4 ML SYR SC SCH (08:51)
[2017-04-09] MEDS ORDERED: POTASSIUM Cl (KCl) 10 MEQ/100 ML BAG IV ONE (10:31)
--- NOTE | 2017-04-09 10:45 | WOCRNPDOC ---
RANJIT Advanced Assessment Note - Skin Integrity Problem, Advanced Assess Coccyx Pressure Injury Dressing Type: Allevyn Life Dressing Description: Clean/Dry, Intact Exudate Amount: Scant Exudate Characteristic(s): Bloody Integumentary Issue Intervention: Dressing Changed Ora Wound Tissue: Blanching, Erythema, Non-blanching Ora Wound Swelling: Mild Wound Bed Constitution: Granulation Tissue (20%), Adhered Slough (80%), Loose Slough Wound Edges: Not Attached, Thick Site Measurement - Head-to-Toe Length X Width X Depth (cm): 0.6x1.2x0.4 (with patient lying on right side). Pressure Injury Stage: Stage 3 Pressure Injury Present on Admit: Yes Skin Integrity Problem Comment: Slough is slowly coming off wound bed. It was mechanically debrided with gauze showing a base of granulation throughout wound bed. Demonstrated dressing change to LANA Rodríguez. Santyl applied to wound bed, covered with telfa and then tegaderm. This was in turn covered by Allevyn Life dressing. Keep patient brief free. Turn Side to Side Q2. Patient should not lie on his back. Keep HOB below 30 degrees as much as possible and medically able. Jana SCHWARTZ in room for care as well. Wound care will round again in one week. Bilateral Heel Dressing Type: Open to Air Ora Wound Tissue: Blanching, Erythema Skin Integrity Problem Comment: Heels are dry and with sluggish blanching and at very high risk for pressure injuryt. Please offload with offloading boots at all times per orders. Do not use pillows as they do not work. Left Cheek Pressure Injury Wound Bed Constitution: Healed
[2017-04-09] MEDS: ACETYLCYSTEINE 20% IH/PO 30 ML VIAL IH SCH ×2 (12:01→22:18)
[2017-04-09] MEDS: BUDESONIDE/FORMOTEROL 160/4.5 60 PUFFS/MDI IH SCH ×2 (12:02→22:17)
--- NOTE | 2017-04-09 12:42 | ASMTCMCOM ---
CM Note CM Note Notes: [facility] in this AM and met w/ pt. Pt reported to [facility] that he is not ready for hospice and he wants to be a full code. [facility] does not think pt is appropriate for hospice at this time because pt is refusing hopsice. CM called Enriqueta and provided updates. Pt will most likely discharge back to [facility] when medically stable. CM to follow. Date Signed: 04/09/2017 12:41 PM Electronically Signed By:XAVIER Huang
--- NOTE | 2017-04-09 14:10 | HOSPPROG ---
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 # mucous plug with L lung collapse - s/p bronch 04/03, 04/02 and 03/29 - repeat cxr personally reviewed with continued dense LLL consolidation, stable # acute resp failure/resp arrest - extubated 04/02, was in the 60s on arrival, now on RA with sats in high 80s to low 90s # acute and chronic encephalopathy - non-verbal at baseline and here intermittently able to say "yes" "no" and "smoke" - hx TBI with GARNISHMENT SPECIALIST shunt, hx craniotomy, hx of heavy etoh abuse # thrombocytosis - likely reactive # pressure injury - w/c bound, wound care following and improving # severe protein calorie malnutrition - BMI 13 on arrival # COPD/tobacco use # 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 # goals of care: see note from 04/08, essentially patient unable to make decisions and given lack of certainly over his decisional capacity in the recent past as well, will continue to honor his MOST form stating patient is FC but does not want TFs. We will allow him to eat. He remains very high risk for aspiration. Will work on establishing a proxy decision maker-ethics/case management involved. Subjective: no significant overnight events, patient alert again today Objective: Vital Signs Temp Pulse Resp BP Pulse Ox 36.5 C 72 16 89/48 L 84 L 04/09/17 11:35 04/09/17 11:35 04/09/17 11:35 04/09/17 11:35 04/09/17 11:35 Laboratory Results 04/06/17 04:35 04/09/17 04:20 04/08/17 04/09/17 04/10/17 05:59 05:59 05:59 Intake Total 456 675 Output Total 1775 2020 850 Balance -1319 -1345 -850 PT 12.9 SEC (12.0-15.0) 03/29/17 17:25 INR 0.98 (0.83-1.16) 03/29/17 17:25 cachectic awake minimally verbal anicteric op clear rrr no mrg coarse bs soft nt nd no cce warm dry well perfused awake,following commands ICD10 Worksheet Patient Problems: Problems Problem Status Onset Acute hypoxemic respiratory failure Acute Aspiration pneumonitis Acute Failure to thrive Acute Palliative care encounter Acute Severe sepsis Acute Traumatic brain injury Acute Dehydration Acute
[2017-04-09] MEDS: COLLAGENASE 30 GM OINTMENT TP SCH (14:38)
[2017-04-09 20:17] LABS: POTASSIUM 3.6 mEq/L (3.5-5.2)
[2017-04-09] MEDS: LORazepam 2 MG/ML INJ IVP PRN (21:04)
[2017-04-09] MEDS ORDERED: POTASSIUM Cl (KCl) 50 ML IV SCH (23:10)
[2017-04-10] MEDS: POTASSIUM Cl (KCl) 100 ML IV SCH ×2 (00:20→01:31)
[2017-04-10] MEDS ORDERED: IPRATROPIUM/ALBUTEROL 3 ML DEYVIAL IH PRN (04:22)
[2017-04-10] MEDS: NS 1,000 ML IV SCH ×2 (05:15→13:09)
[2017-04-10 05:54] LABS: POTASSIUM 4.1 mEq/L (3.5-5.2)
[2017-04-10] MEDS: BUDESONIDE/FORMOTEROL 160/4.5 60 PUFFS/MDI IH SCH ×2 (08:16→20:36)
--- NOTE | 2017-04-10 08:21 | HOSPPROG ---
Hospitalist Progress Note Assessment/Plan: STAT call from RN for hypoxemia: satas into 70s, now on 15L face mask. He feels SOB. #Acute hypoxemic resp failure: concern for mucous plug. Bronched several times, last 04/03. Stat CXR, ABG. Pulm vest, Mucomyst. Spoke with Dr. Mcmhaan to help with broch #Acute on chronic encephalopathy: h/o TBI. says yes/no at baseline #Aspiration PNA: completed course of Invanz #Mucous plug/lung collapse: s/p several bronchs, last 04/03 #Severe sepsis: resolved #Pressure injury: wound care #Severe protein caloric malnutrition: BMI 13. No TFs per his most form #Dysphagia: high-aspiration risk. Does not have medical capacity to make decisions; prior MOST form states he does not want TFs #Thrombocytosis: reactive with acute illness #Hypokalemia: resolved #Normocytic anemia: H/H stable #Disp: transfer to ICU. Critical care time spent: 60 min bedside with patient, reviewing records, imaging, labs. Also coordinating transfer to ICU and d/w Dr. Mcmahan Subjective: SOB and c/o back this morning. Objective: Vital Signs Temp Pulse Resp BP Pulse Ox 37.0 C 82 18 109/57 L 96 04/10/17 04:00 04/10/17 04:00 04/10/17 04:00 04/10/17 04:00 04/10/17 04:00 Laboratory Results 04/06/17 04:35 04/10/17 05:20 04/09/17 04/10/17 04/11/17 05:59 05:59 05:59 Intake Total 2061 Output Total 2019 1924 Balance -1345 137 PT 12.9 SEC (12.0-15.0) 03/29/17 17:25 INR 0.98 (0.83-1.16) 03/29/17 17:25 - Physical Exam Constitutional: cachectic (temporal wasting) Eyes: PERRL Ears, Nose, Mouth, Throat: dry mucous membranes Cardiovascular: regular rate and rhythym Respiratory: other (using accesory muscles, decreased BS left base) ICD10 Worksheet Patient Problems: Problems Problem Status Onset Acute hypoxemic respiratory failure Acute Aspiration pneumonitis Acute Failure to thrive Acute Palliative care encounter Acute Severe sepsis Acute Traumatic brain injury Acute Dehydration Acute
[2017-04-10] MEDS ORDERED: ACETYLCYSTEINE 10% IH/PO 4 ML VIAL IH SCH (10:00)
[2017-04-10] MEDS ORDERED: ACETYLCYSTEINE 10% 30 ML VIAL IH SCH (10:00)
[2017-04-10] MEDS: ACETYLCYSTEINE 20% IH/PO 30 ML VIAL IH SCH (10:04)
[2017-04-10 10:07] LABS: BASE EXCESS -0.5 mEq/L (-2.5-2.5); BICARBONATE 20 mEq/L (22-26); MEASURED OXYGEN SATURATION 77 % (92-95); PCO2 25 mmHg (34-38); PO2 41 mmHg (65-75); TCO2 21 mEq/L (23-27)
[2017-04-10] MEDS: ACETYLCYSTEINE 10% 30 ML VIAL IH SCH ×2 (10:38→12:12)
[2017-04-10] MEDS ORDERED: LIDOCAINE 2% JELLY 5 ML TUBE TP ONE (11:16)
[2017-04-10] MEDS ORDERED: BENZOCAINE UNIT DOSE SPRAY HURRICAINE MM ONE (11:16)
[2017-04-10] MEDS ORDERED: LIDOCAINE 1% 300 MG/30 ML SDV MISC ONE (11:16)
[2017-04-10] MEDS ORDERED: LIDOCAINE 2% JELLY 20 ML (UROJECT) ONE (11:27)
[2017-04-10] MEDS ORDERED: LIDOCAINE 2% JELLY 30 ML TUBE TP ONE (11:30)
--- NOTE | 2017-04-10 11:51 | PDINTPN ---
Interpreter Translator Progress Note Assessment/Plan: Assessment/Plan: * Possible seizure no clear etiology and head CT without change. No anticonvulsants for now. * Acute respiratory failure with hypoxemia-patient would likely require intubation and mechanical ventilation. However, patient is currently refusing this, and wishes to be made a limited DNR. * Mucus plugging-given his current respiratory status would be unable to perform fiberoptic bronchoscopy unless patient is intubated. * Code status-now limited cor, with chest compressions and cardioversion only. * Metabolic acidosis- resolved * Septic shock- resolved * Skin breakdown/decubitus ulcer prior to hospital. 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 * COPD- hyperinflation on CXR- change albuterol Q4 scheduled to prn. Added duoneb with mucomyst 04/01. * HTN- currently stable, holding home meds. * Hyperkalemia- likely hemolyzed specimen * Severe Malnutrition- he is very cachectic and may not be getting adequate nutrition- which may be on his own accord. Markie Gifford billing and accounting staff assistant told CM that he eats OK. * Disposition-prognosis grim for meaningful recovery Case discussed with nursing. 04/10/17 11:48 Subjective: Awake and appears alert. Able answer yes and no questions. He adamantly refuses intubation mechanical ventilation. Objective: Vital Signs Temp Pulse Resp BP Pulse Ox 37.0 C 115 H 24 H 98/55 L 84 L 04/10/17 04:00 04/10/17 10:07 04/10/17 10:07 04/10/17 09:25 04/10/17 10:07 Laboratory Results 04/06/17 04:35 04/10/17 05:20 04/09/17 04/10/17 04/11/17 05:59 05:59 05:59 Intake Total 675 2061 Output Total 2019 1924 350 Balance -1345 137 -350 PT 12.9 SEC (12.0-15.0) 03/29/17 17:25 INR 0.98 (0.83-1.16) 03/29/17 17:25 Physical Exam - Physical Exam General Appearance: alert, moderate distress EENT: PERRL/EOMI Neck: non-tender, full range of motion, supple, normal inspection Respiratory: respiratory distress, rhonchi (Scattered), wheezing (Slight) Cardiac/Chest: normal peripheral pulses, regular rate, rhythm, tachycardia Abdomen: normal bowel sounds, non-tender, soft Male Genitalia: deferred Rectal: deferred Skin: normal color, warm/dry Extremities: normal range of motion, non-tender, normal inspection, normal capillary refill ICD10 Worksheet Patient Problems: Problems Problem Status Onset Acute hypoxemic respiratory failure Acute Aspiration pneumonitis Acute Failure to thrive Acute Palliative care encounter Acute Severe sepsis Acute Traumatic brain injury Acute Dehydration Acute
[2017-04-10] MEDS: FAMOTIDINE 20 MG/NACL 50 ML IV SCH ×2 (13:08→21:44)
[2017-04-10] MEDS: NICOTINE 21 MG/24 HR PATCH TD SCH (13:08)
[2017-04-10] MEDS: ENOXAPARIN 40 MG/0.4 ML SYR SC SCH (13:08)
[2017-04-10] MEDS: COLLAGENASE 30 GM OINTMENT TP SCH (13:09)
[2017-04-10] MEDS: LORazepam 2 MG/ML INJ IVP PRN ×2 (19:13→23:30)
[2017-04-11 05:39] LABS: ANION GAP 12 mEq/L (8-16); CARBON DIOXIDE 21 mEq/l (22-31); CHLORIDE 110 mEq/L (97-110); CREATININE 0.5 mg/dL (0.7-1.3); GLOMERULAR FILTRATION RATE > 60; GLUCOSE 72 mg/dL (70-100); POTASSIUM 3.6 mEq/L (3.5-5.2); SODIUM 143 mEq/L (134-144)
--- NOTE | 2017-04-11 08:21 | HOSPPROG ---
Hospitalist Progress Note Assessment/Plan: #Acute hypoxemic resp failure: concern for mucous plug. Bronched several times, last 04/03. -not safe to due bronch unless intubated and pt declined with Dr. Mcmahan yesterday -cont BanomystBarry #Acute on chronic encephalopathy: h/o TBI. says yes/no at baseline #Aspiration PNA: completed course of Invanz #Mucous plug/lung collapse: s/p several bronchs, last 04/03 #Severe sepsis: resolved #Pressure injury: wound care #Severe protein caloric malnutrition: BMI 13. No TFs per his most form #Dysphagia: high-aspiration risk. Does not have medical capacity to make decisions; prior MOST form states he does not want TFs #Thrombocytosis: reactive with acute illness #Hypokalemia: resolved #Normocytic anemia: H/H stable #Disp: transfer back to floor #Goals: he is limited COR with no intubation. Poor prognosis given suspected mucus plugging and pt declines intubation for bronch Subjective: min response to interview today Objective: Vital Signs Temp Pulse Resp BP Pulse Ox 36.6 C 105 H 30 H 81/43 L 97 04/11/17 07:43 04/11/17 07:43 04/11/17 07:43 04/11/17 07:43 04/11/17 07:43 Laboratory Results 04/06/17 04:35 04/11/17 05:00 04/10/17 04/11/17 04/12/17 05:59 05:59 05:59 Intake Total 2062 1141 Output Total 1925 675 Balance 137 466 PT 12.9 SEC (12.0-15.0) 03/29/17 17:25 INR 0.98 (0.83-1.16) 03/29/17 17:25 - Physical Exam Constitutional: cachectic (severely. Temporal wasting), other (less interactive today) Ears, Nose, Mouth, Throat: poor dentition, dry mucous membranes Cardiovascular: regular rate and rhythym Respiratory: rhonchi Gastrointestinal: normoactive bowel sounds, soft, non-tender abdomen Genitourinary: no bladder fullness Skin: warm Neurologic: CN II-XII Intact Psychiatric: flat affect, other (not answering questions today. More somnolent) ICD10 Worksheet Patient Problems: Problems Problem Status Onset Acute hypoxemic respiratory failure Acute Aspiration pneumonitis Acute Failure to thrive Acute Palliative care encounter Acute Severe sepsis Acute Traumatic brain injury Acute Dehydration Acute
[2017-04-11] MEDS: FAMOTIDINE 20 MG/NACL 50 ML IV SCH ×2 (08:38→21:33)
[2017-04-11] MEDS: ENOXAPARIN 40 MG/0.4 ML SYR SC SCH (08:38)
[2017-04-11] MEDS: NICOTINE 21 MG/24 HR PATCH TD SCH (08:38)
[2017-04-11] MEDS: COLLAGENASE 30 GM OINTMENT TP SCH (08:38)
--- NOTE | 2017-04-11 09:33 | PDINTPN ---
Lens Assorter Progress Note Assessment/Plan: Assessment/Plan: * Possible seizure no clear etiology and head CT without change. No anticonvulsants for now. * Acute respiratory failure with hypoxemia-patient would likely require intubation and mechanical ventilation. However, patient is currently refusing this, and wishes to be made a limited DNR. * Mucus plugging-given his current respiratory status would be unable to perform fiberoptic bronchoscopy unless patient is intubated. * Code status-now limited cor, with chest compressions and cardioversion only. * Metabolic acidosis- resolved * Septic shock- resolved * Skin breakdown/decubitus ulcer prior to hospital. 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 * COPD- hyperinflation on CXR- change albuterol Q4 scheduled to prn. Added duoneb with mucomyst 04/01. * HTN- currently stable, holding home meds. * Hyperkalemia- likely hemolyzed specimen * Severe Malnutrition- he is very cachectic and may not be getting adequate nutrition- which may be on his own accord. Markie Gifford staff internist office based only told CM that he eats OK. * Do not resuscitate * Disposition-prognosis grim for meaningful recovery. Okay for transfer to floor Case discussed with nursing. Subjective: Resting Objective: Vital Signs Temp Pulse Resp BP Pulse Ox 36.6 C 105 H 30 H 81/43 L 97 04/11/17 07:43 04/11/17 07:43 04/11/17 07:43 04/11/17 07:43 04/11/17 07:43 Laboratory Results 04/06/17 04:35 04/11/17 05:00 04/10/17 04/11/17 04/12/17 05:59 05:59 05:59 Intake Total 2062 1141 Output Total 1925 675 Balance 137 466 PT 12.9 SEC (12.0-15.0) 03/29/17 17:25 INR 0.98 (0.83-1.16) 03/29/17 17:25 Physical Exam - Physical Exam General Appearance: No alert EENT: PERRL/EOMI, normal ENT inspection Neck: non-tender, full range of motion Respiratory: respiratory distress (Mild), crackles (Few), No wheezing Cardiac/Chest: normal peripheral pulses, regular rate, rhythm, tachycardia Abdomen: normal bowel sounds, non-tender, soft Male Genitalia: deferred Rectal: deferred Skin: normal color, warm/dry Extremities: non-tender Neuro/Psych: No alert ICD10 Worksheet Patient Problems: Problems Problem Status Onset Acute hypoxemic respiratory failure Acute Aspiration pneumonitis Acute Failure to thrive Acute Palliative care encounter Acute Severe sepsis Acute Traumatic brain injury Acute Dehydration Acute
[2017-04-11] MEDS: BUDESONIDE/FORMOTEROL 160/4.5 60 PUFFS/MDI IH SCH ×2 (11:12→20:52)
[2017-04-11] MEDS: POTASSIUM Cl (KCl) 50 ML IV SCH ×2 (11:53→11:54)
[2017-04-11] MEDS ORDERED: ONDANSETRON 4 MG/2 ML VIAL IVP PRN (14:10)
--- NOTE | 2017-04-11 14:10 | HOSPPROG ---
Hospitalist Progress Note Assessment/Plan: Addendum: called to bedside 1400 with decreased mental status and hypotension. Patient is clearly clinically declining today due to acute resp failure with increased obtundation. He declined further intubation which would allow for bronch and clearing suspected mucus plugs. Decision making has been complex and Palliative Care/Ethics involved. He does not have a med proxy and is not decisional at this time. I have tried today and clinical staff anesthesiologist in past to contact mother, but she has hung up. There was no answer or voicemail option today. His mental status was clearer yesterday and voiced with Dr. Mcmahan that he did not want to be intubated. MOST form states no artificial feeds and he is limited COR with no intubation. After discussion with Dr. Mcmahan and clinical staff anesthesiologist, we all agree that his prognosis is poor and is imminent. We will pursue comfort measures and will not resuscitate to avoid further harm or suffering, i.e. with chest compressions. Symptom management for breathlessness, pain. Objective: Vital Signs Temp Pulse Resp BP Pulse Ox 36.6 C 105 H 30 H 81/43 L 97 04/11/17 07:43 04/11/17 07:43 04/11/17 07:43 04/11/17 07:43 04/11/17 07:43 Laboratory Results 04/06/17 04:35 04/11/17 05:00 04/10/17 04/11/17 04/12/17 05:59 05:59 05:59 Intake Total 2062 1141 Output Total 1925 675 100 Balance 137 466 -100 PT 12.9 SEC (12.0-15.0) 03/29/17 17:25 INR 0.98 (0.83-1.16) 03/29/17 17:25 ICD10 Worksheet Patient Problems: Problems Problem Status Onset Acute hypoxemic respiratory failure Acute Aspiration pneumonitis Acute Failure to thrive Acute Palliative care encounter Acute Severe sepsis Acute Traumatic brain injury Acute Dehydration Acute
[2017-04-11] MEDS: LORazepam 2 MG/ML INJ IVP PRN ×2 (15:20→21:34)
--- NOTE | 2017-04-11 17:55 | ASMTCMCOM ---
CM Note CM Note Notes: Reviewed chart re: d/c poc, pt's progress. Per MD notes, pt w/ decline in mental status, hypotension and worsening resp failure today. Comfort measures initiated as MD feels is imminent. Spoke w/ LANA Connors, she reported similar information. Staff attempted to alert pt's mother, but she is currently refusing all phone calls from [facility]. Call placed to Enriqueta at [facility]; [facility], awaiting c/b. Offered support and to alert additional family, Dory reports there is no one else to notify; additional support not needed at this time. CM will cont to follow. Date Signed: 04/11/2017 05:54 PM Electronically Signed By:Chrissy Buckner RN
[2017-04-12] MEDS: LORazepam 2 MG/ML INJ IVP PRN ×3 (04:10→18:43)
[2017-04-12] MEDS: FAMOTIDINE 20 MG/NACL 50 ML IV SCH ×2 (09:34→20:05)
[2017-04-12] MEDS: ENOXAPARIN 40 MG/0.4 ML SYR SC SCH (09:34)
[2017-04-12] MEDS: COLLAGENASE 30 GM OINTMENT TP SCH (09:35)
[2017-04-12] MEDS: NICOTINE 21 MG/24 HR PATCH TD SCH (09:35)
[2017-04-12] MEDS: BUDESONIDE/FORMOTEROL 160/4.5 60 PUFFS/MDI IH SCH ×2 (10:45→21:52)
[2017-04-12] MEDS: NS 1,000 ML IV SCH ×2 (11:30→16:11)
--- NOTE | 2017-04-12 11:46 | ASMTCMCOM ---
CM Note CM Note Notes: Patient continues to decline, no longer talking. Patient has been made Comfort Care here at [facility]. Hospitalist would like to get him somewhere comfortable with Hospice Care. Contacted [facility] and [facility] and made a referral. Date Signed: 04/12/2017 11:45 AM Electronically Signed By:Evelin Garrison LCSW
--- NOTE | 2017-04-12 15:19 | HOSPPROG ---
Hospitalist Progress Note Assessment/Plan: #Acute hypoxemic resp failure: concern for mucous plug. Bronched several times, last 04/03. Not safe to due bronch unless intubated. Patient declined intubation with Dr. Mcmahan yesterday. #Acute on chronic encephalopathy: more obtunded today with hypoxemia. #Aspiration PNA: completed course of Invanz #Mucous plug/lung collapse: s/p several bronchs, last 04/03 #Severe sepsis: resolved #Pressure injury: wound care #Severe protein caloric malnutrition: BMI 13. No TFs per his most form #Dysphagia: high-aspiration risk. Does not have medical capacity to make decisions; prior MOST form states he does not want TFs #Thrombocytosis: reactive with acute illness #Hypokalemia: resolved #Normocytic anemia: H/H stable #Disp: transfer back to floor #Goals: Patient continues to clinically decline today due to acute resp failure. He clearly declined further intubation to Dr. Mcmahan. Decision making has been complex and Palliative Care/Ethics involved. He does not have a med proxy and is not decisional at this time. There has been multiple attempts to contact his mother, but she has either hung up or no voicemail. I personally tried yesterday. After lengthy discussion with Dr. Mcmahan we agree that his prognosis is poor and aggressive care is futile given imminent . Focus on comfort measures. Performing CPR (chest compressions or shocks) will cause more harm at this point. Symptom management for breathlessness, pain. Case management to assist with transfer of care to [place]. Subjective: obtunded this morning Objective: Vital Signs Temp Pulse Resp BP Pulse Ox 36.6 C 102 H 18 93/48 L 97 04/11/17 07:43 04/12/17 08:00 04/12/17 08:00 04/12/17 08:00 04/12/17 08:00 Laboratory Results 04/06/17 04:35 04/11/17 05:00 04/11/17 04/12/17 04/13/17 05:59 05:59 05:59 Intake Total 1141 506 Output Total 675 1400 Balance 466 -894 PT 12.9 SEC (12.0-15.0) 03/29/17 17:25 INR 0.98 (0.83-1.16) 03/29/17 17:25 - Physical Exam Constitutional: chronically ill appearing, cachectic Ears, Nose, Mouth, Throat: poor dentition, dry mucous membranes Cardiovascular: tachycardia Respiratory: dullness to percussion, rhonchi Gastrointestinal: normoactive bowel sounds, soft, non-tender abdomen Genitourinary: no bladder fullness Skin: warm Musculoskeletal: other (diffuse muscle wasting of extremities) Psychiatric: encephalopathic ICD10 Worksheet Patient Problems: Problems Problem Status Onset Acute hypoxemic respiratory failure Acute Aspiration pneumonitis Acute Failure to thrive Acute Palliative care encounter Acute Severe sepsis Acute Traumatic brain injury Acute Dehydration Acute
[2017-04-13] MEDS: NS 1,000 ML IV SCH (04:48)
[2017-04-13] MEDS: LORazepam 2 MG/ML INJ IVP PRN ×3 (04:48→23:45)
[2017-04-13] MEDS: BUDESONIDE/FORMOTEROL 160/4.5 60 PUFFS/MDI IH SCH (09:07)
[2017-04-13] MEDS: FAMOTIDINE 20 MG/NACL 50 ML IV SCH (09:35)
[2017-04-13] MEDS: NICOTINE 21 MG/24 HR PATCH TD SCH (09:35)
[2017-04-13 13:51] VITALS: BP 80/63; PULSE 128; RESP 38; TEMP 99.7; O2SAT 92
[2017-04-13] MEDS: COLLAGENASE 30 GM OINTMENT TP SCH (14:02)
--- NOTE | 2017-04-13 14:29 | HOSPPROG ---
Hospitalist Progress Note Assessment/Plan: Came by to f/u with Luis E/ he is clearly not decisional. He is obtunded and not oxygenating well/ Came by as a second opinion as far as being decisional. *Acute hypoxemic resp fx on non-rebreather 15 liters patient has declined intubation has mucus plugging *Acute protein kennedy malnutrition *acute encephalopathy *asp pna treated w Invanz *severe sepsis *PLan: patient doesn't wish to be intubated per prior discussions/ I reviewed Dr. Ward and Dr. Mcmahan progress notes. Call was placed into legal and asked to call us back in regards to dealing is getting the patient CPR. I am doubtful the patient would make it through this. He has very little urine output, nonresponsive, use of accessory muscles to breathe and is clearly malnourished. Subjective: nonrepsonsive Objective: Vital Signs Temp Pulse Resp BP Pulse Ox 37.6 C 128 H 38 H 80/63 L 92 04/13/17 08:00 04/13/17 08:00 04/13/17 08:00 04/13/17 08:00 04/13/17 08:00 Laboratory Results 04/06/17 04:35 04/11/17 05:00 04/12/17 04/13/17 04/14/17 05:59 05:59 05:59 Intake Total 506 173 Output Total 1400 700 Balance -894 -527 PT 12.9 SEC (12.0-15.0) 03/29/17 17:25 INR 0.98 (0.83-1.16) 03/29/17 17:25 - Physical Exam Constitutional: chronically ill appearing, cachectic (temporal lobe wasting) Ears, Nose, Mouth, Throat: other (Dry mucous membranes) Cardiovascular: regular rate and rhythym, tachycardia Respiratory: other (increase wob, use ofaccessory muscles) Genitourinary: gaspar in urethra (Has minimal urine output) Neurologic: other (Not responsive) ICD10 Worksheet Patient Problems: Problems Problem Status Onset Acute hypoxemic respiratory failure Acute Aspiration pneumonitis Acute Failure to thrive Acute Palliative care encounter Acute Severe sepsis Acute Traumatic brain injury Acute Dehydration Acute
--- NOTE | 2017-04-13 14:45 | HOSPPROG ---
Hospitalist Progress Note Assessment/Plan: I was asked by my colleague, Dr. Jennifer Ward, to examine this gentleman and provide an opinion regarding medical decision making and prognosis. He appears cachectic with severe temporal wasting, in acute respiratory failure , and appears to be actively dying. He has a h/o TBI and has been bronch'd multiple times with persistent mucus plugging and ongoing respiratory failure. Per chart review, he has previously stated he does not wish to be intubated. It is my opinion that should he code, chest compressions would be futile and likely to cause harm, with chest wall trauma, broken ribs and no chance for meaningful recovery. Comfort measure are appropriate and will be initiated. Further aggressive care is futile. Objective: Vital Signs Temp Pulse Resp BP Pulse Ox 37.6 C 128 H 38 H 80/63 L 92 04/13/17 08:00 04/13/17 08:00 04/13/17 08:00 04/13/17 08:00 04/13/17 08:00 Laboratory Results 04/06/17 04:35 04/11/17 05:00 04/12/17 04/13/17 04/14/17 05:59 05:59 05:59 Intake Total 506 173 Output Total 1400 700 Balance -894 -527 PT 12.9 SEC (12.0-15.0) 03/29/17 17:25 INR 0.98 (0.83-1.16) 03/29/17 17:25 ICD10 Worksheet Patient Problems: Problems Problem Status Onset Acute hypoxemic respiratory failure Acute Aspiration pneumonitis Acute Failure to thrive Acute Palliative care encounter Acute Severe sepsis Acute Traumatic brain injury Acute Dehydration Acute
[2017-04-13] MEDS: ENOXAPARIN 40 MG/0.4 ML SYR SC SCH (14:47)
--- NOTE | 2017-04-13 15:26 | HOSPPROG ---
Hospitalist Progress Note Assessment/Plan: #Acute hypoxemic resp failure: concern for mucous plug. Now in resp distress. Bronched several times, last 04/03. Not safe to due bronch unless intubated. Patient declined intubation with Dr. Mcmahan Thursday. #Acute on chronic encephalopathy: fully obtunded today. #Aspiration PNA: completed course of Invanz #Mucous plug/lung collapse: s/p several bronchs, last 04/03 #Severe sepsis: resolved #Pressure injury: wound care #Severe protein caloric malnutrition: BMI 13. No TFs per his most form #Dysphagia: high-aspiration risk. Does not have medical capacity to make decisions; prior MOST form states he does not want TFs #Thrombocytosis: reactive with acute illness #Hypokalemia: resolved #Normocytic anemia: H/H stable #Disp: transfer back to floor #Goals: Patient continues to clinically decline today due to acute resp failure. He clearly declined further intubation to Dr. Mcmahan. Decision making has been complex and Palliative Care/Ethics involved. My colleague, Janneth Gray, evaluated him today and deemed him to not have medical decisional capacity. I appointed Dr. Lorenzo Flaherty MD as med proxy with the assistance of Ethics team. He agrees that DNR and comfort measures is the appropriate care for patient. There has been multiple attempts to contact his mother, but she has either hung up or no voicemail. After lengthy discussions with Dr. Mcmahan over the weekend, we agree that his prognosis is poor and aggressive care is futile given imminent . My colleague, Dr. Person, evaluated patient today and also agreed (see her note). Performing CPR (chest compressions or shocks) will not save his life and cause more harm like broken ribs, possible pneumothorax. Will focus on comfort measures at this point. I discussed this with legal team at [facility] who agreed with plan. Critical care time spent: 90 min bedside evaluating patient, discussing case with Ethics and legal team, Dr. Krystina CM, and Dr. Person. Subjective: agonal breathing Objective: Vital Signs Temp Pulse Resp BP Pulse Ox 37.6 C 128 H 38 H 80/63 L 92 04/13/17 08:00 04/13/17 08:00 04/13/17 08:00 04/13/17 08:00 04/13/17 08:00 Laboratory Results 04/06/17 04:35 04/11/17 05:00 04/12/17 04/13/17 04/14/17 05:59 05:59 05:59 Intake Total 506 173 Output Total 1400 700 Balance -894 -527 PT 12.9 SEC (12.0-15.0) 03/29/17 17:25 INR 0.98 (0.83-1.16) 03/29/17 17:25 - Physical Exam Constitutional: chronically ill appearing, cachectic (temporal muscle wasting) Ears, Nose, Mouth, Throat: poor dentition, dry mucous membranes Cardiovascular: tachycardia Respiratory: reduced air movement, respiratory distress, rhonchi Gastrointestinal: soft, non-tender abdomen Genitourinary: no bladder fullness Skin: warm Neurologic: other (obtunded, not opening eyes or answering questions) Psychiatric: encephalopathic ICD10 Worksheet Patient Problems: Problems Problem Status Onset Acute hypoxemic respiratory failure Acute Aspiration pneumonitis Acute Dehydration Acute Failure to thrive Acute Palliative care encounter Acute Severe sepsis Acute Traumatic brain injury Acute
--- NOTE | 2017-04-13 16:55 | ASMTCMCOM ---
CM Note CM Note Notes: Ramin from ethics was able to find a medical proxy for pt. Medical proxy is Dr. Lorenzo Flaherty, P#: [phone]. Pt is a DNR and currently on comfort measures. CM to follow. Date Signed: 04/13/2017 04:54 PM Electronically Signed By:XAVIER Huang
--- NOTE | 2017-04-14 03:44 | HOSPPROG ---
Hospitalist Progress Note Assessment/Plan: Called by RN. reported patient 33804/14/2017. Patient was made comfort measures today for acute on chronic respiratory failure. Objective: Vital Signs Temp Pulse Resp BP Pulse Ox 37.6 C 128 H 38 H 80/63 L 92 04/13/17 08:00 04/13/17 08:00 04/13/17 08:00 04/13/17 08:00 04/13/17 08:00 Laboratory Results 04/06/17 04:35 04/11/17 05:00 04/12/17 04/13/17 04/14/17 05:59 05:59 05:59 Intake Total 506 173 Output Total 1400 700 125 Balance -894 -527 -125 PT 12.9 SEC (12.0-15.0) 03/29/17 17:25 INR 0.98 (0.83-1.16) 03/29/17 17:25 ICD10 Worksheet Patient Problems: Problems Problem Status Onset Acute hypoxemic respiratory failure Acute Aspiration pneumonitis Acute Failure to thrive Acute Palliative care encounter Acute Severe sepsis Acute Traumatic brain injury Acute Dehydration Acute
--- NOTE | 2017-04-14 08:27 | GDS ---
[f rep st] DISCHARGE SUMMARY DISCHARGE DIAGNOSES: 1. Acute hypoxemic respiratory failure. 2. Aspiration pneumonia. 3. Dysphagia. 4. History of traumatic brain injury, nonverbal but interactive. 5. Mucous plug/lung collapse. 6. Severe sepsis. 7. Pressure injury. 8. Severe protein caloric malnutrition. 9. Thrombocytosis. 10. Hypokalemia. 11. Normocytic anemia. HISTORY OF PRESENT ILLNESS: A 57-year-old male with a history of TBI who was nonverbal but interactive at his nursing facility, who was recently admitted earlier in March due to weakness and elevated white count. He was found down in his fpc and resuscitation attempts were made in the field, but when he arrived in the ICU, he was completely unresponsive. CT scan showed extensive mucus plugging throughout the lung and he underwent bronchoscopy. He lives in a fpc. At baseline he interact with others, but apparently does not talk. HOSPITAL COURSE BY PROBLEM: 1. Acute hypoxemic respiratory failure: This is multifactorial with aspiration pneumonia and mucus plugging. Patient required 3 bronchoscopies this stay to remove extensive mucus. He also was treated for aspiration pneumonia. He underwent a swallow evaluation last admission that showed chronic dysphagia and was advised to not eat or drink. My first day with patient, a stat team was called due to acute hypoxia. X-ray revealed left upper lobe infiltrate, which was likely, again, mucus plugging. I quickly transferred him to the ICU. At that time, Dr. Mcmahan discussed intubation to do the procedure; however, patient clearly declined. He did not want to be intubated. Given the procedure needed to alleviate hypoxemia was not able to be done, patient continued to clinically decline. The next couple days he became completely obtunded. 2. Aspiration pneumonia: Again, recent video swallow study showed chronic dysphagia and was recommended to not eat. 3. Dysphagia: Again failed swallow. However, on initial MOLST form he said he did not want an artificial feeding. Thus, it would be difficult to determine if he really wanted a PEG tube as he is nonverbal and does not have a med proxy. 4. Mucus plug with left lung collapse: Status post bronch 04/03, 04/02 and . 5. Acute on chronic encephalopathy: During this stay, he became more obtunded due to acute hypoxia. 6. 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 7. 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 8. History of chronic pressure injury: He is wheelchair bound. 9. Severe protein caloric malnutrition: BMI was 13 on arrival. Again, difficult to determine appropriate feeding as he did not want tube feeds in the past and is a chronic risk for aspiration with dysphagia. GOALS OF CARE: This has been a difficult process to find a POA or med proxy for this patient. His mother has not been involved. There has been several providers who have tried to reach her. She has either hung up or there is no option for voicemail. Both Ethics, Palliative Care and Legal have been involved. I appointed Dr. Lorenzo Flaherty, 04/13/2017, with the help of Ethics, to be his med proxy. He was in agreement that this would be futile care to continue aggressive medical treatment, i.e. resuscitation, given the fact that he did not want intubation. I discussed at length with Dr. Mcmahan, aerospace control and warning systems , that aggressive resuscitation would only cause harm to patient, i.e. broken ribs, possible pneumothorax, and his chances of surviving were minimal. The goal was to focus on comfort. My colleague, Janneth Gray, evaluated patient on 04/13/2017, and determined him to not have medical decisional capacity. Dr. Person also evaluated the patient and agreed that aggressive resuscitation at this time would be futile and cause more harm and suffering. I spoke with Legal and they agreed that it was appropriate, given that several providers agreed that care was futile and would cause only harm, that we could proceed with comfort measures given the fact that the patient's was eminent within the day. The patient was symptomatically treated and passed the morning of 04/14/2017. /[id number]/MODL MTDD
--- NOTE | 2017-04-14 12:12 | ASDISCHSUM ---
Discharge Information Plan Status: Medically Cleared to Leave:04/14/2017 Discharge Date:04/14/2017 05:23 AM CM D/C Disposition: ADT D/C Disposition: Projected Discharge Date:04/14/2017 11:00 AM Transportation at D/C:ALS/BLS Discharge Delay Reason: Follow-Up Date:04/14/2017 11:00 AM Discharge Slot: Final Diagnosis: Placement Information Referral Type:*Hospice Referral ID:[id number] Provider Name: Address 1: Phone Number: Address 2: Fax Number: City: Selection Factors: State: Referral Type:*Assisted/SNF Referral ID:[id number] Provider Name: Address 1: Phone Number: Address 2: Fax Number: City: Selection [place]: State: Patient Contact Information Contact Name:VADIM Relationship:Mother Address: Work Phone: City: Alternate Phone: State/[employer] Code: Email: Financial Information Financial Class: Primary Plan Desc:[employer] [place] Primary Plan Number:[id number] Secondary Plan Desc: Secondary Plan Number: Assessment Information [facility] CM Progress Note CM Note CM Note Notes: Patient discussed at rounds. He is intubated and non-verbal. Call to [facility] where he resides and Angela informed us patient wheelchair bound, non verbal and refuses care. Attempted to contact his mother. Phone number is not working. No known address. Needs not determined at this time as patient is ventilated and unable to participate. CM to follow. Discussed with hospitalist and ethics consult to be ordered. Date Signed: 03/30/2017 04:06 PM Electronically Signed By:Nati Cain RN [facility] CM Progress Note CM Note CM Note Notes: There continue to be many questions/concerns about patient's history and current care. I spoke with a few people today who were mildly helpful. Tonia, an travel administrator at [facility] (has worked there for approx 1 month), said that patient was sent to the facility September 2015 from [facility]. She says that patient is able to/does eat and communicates by writing and gesturing. She says that despite multiple attempts to reach his mother Soila Alvarez ([phone]), no one has ever spoken with her. She gave me the name and number of a physician who had seen the patient recently. I then spoke with Dr Lima ([phone]) who is apparently a physician part of a group contracted to see patient's at [facility] ([facility]). He saw the patient once, on 02/06/17, and did not glean much from the visit except that the patient perseverates about smoking cigarettes and is not interested in much else. Dr Lima was reading throught he patient's chart as we were speaking and said that he has a history of closed head injury (date and cause unknown), CVA (same), and alcoholism. He said that patient becomes angry easily and often. Since 02/06/17, patient had been seen by other providers about 6-7 times. During those visits, hospice was reocmmended, APS involvement was recommended, and patient's decisionality was questioned. According to Dr Lima, once the physicians make a recommendation the floor nurses and/or COFFEE SHOP MANAGER are supposed to follow through. Now, the question is whether anyone at [facility] is advocating on behalf of this patient and following the recommendations of the physicians. I spoke with Enriqueta, who is [facility] Case Mgmt's personnel and payroll technician for the facility, and requested that [facility]'s store planner Sandi call me and/or come to the hospital tomorrow. There are concerns about the patient's decisionality and the care he is receiving at [facility]. I will share this information with the Ethics team, as well. Date Signed: 04/01/2017 04:27 PM Electronically Signed By:Raine Ruff RN [facility] Progress Note CM Note CM Note Notes: Meeting with Susi from Ethics, Twila from Palliative care, LYNDSAY Junior at [facility], and LEIGHA Herron at [facility]. staff provided some background on patient: they have never made contact with his mother Soila; patient only communicates simple needs like wanting to eat or smoke; patient becomes overwhelmed when too much information is preserted to him; and, patient responds better to familiar faces than to strangers. They don't know anything about his past medical history. When I asked if anyone had followed up on recent [facility] physician recommendations that patient be evaluated by hospice and APS, the LYNDSAY responded that the social and human services assistant "was working on it." The LYNDSAY is going to ask the social and human services assistant, Aminata, to get in touch with us to explain where she is in this process. Decisional capacity is our biggest concern right now, and neither Sandi nor Germaine felt that patient was capable of making a complex medical decision such as signing a MOST form or advance directive. Thus, the MOST form we have on record (signed by patient 09/2015) in which he wants CPR but not artificial nutrition is in question. Twila from Palliative believes that patient needs a hospice evaluation before leaving [facility]; however, we are again faced with questions about his decisional capacity. Patient had a bronchoscopy today and required sedative medications. MODELING AGENT deferred their cognitive evaluation until tomorrow. Ethics has placed a call to [facility]'s legal department to review case. will follow up with tomorrow to see if we can get more information from their social and human services assistant. The LYNDSAY Junior also said that she would speak with the staff that interact with patient most to see if there was any additional information they could provide. Date Signed: 04/02/2017 03:19 PM Electronically Signed By:Raine Ruff RN [facility] CM Progress Note CM Note CM Note Notes: CM spoke with LISANDRO Coates at [facility]. She had no knowledge about a possible APS referral for guardianship and will follow up with LYNDSAY Junior at . Ethics continues to see pt to assess decisional capacity. MDs have separately discussed PEG placement with pt who continues to indicate his wish to have one. No decision made to pursue this yet. Pt has been able to make his needs known today. CM will continue to follow. Date Signed: 04/03/2017 04:54 PM Electronically Signed By:JAILENE Dykes [facility] CM Progress Note CM Note CM Note Notes: Reviewed chart re: d/c poc, pt's progress. Per rounds/ MD notes, pt w/ aspiration PNA, scheduled for video swallow study today. Per Dr. Alvarez, pt w/ moderate decision making capabilities. Feeding tube discussion still pending. Dr. Alvarez attempted to contact family multiple times w/o success. Discussed possibility of an LTAC upon d/c today, although pt may not qualify. If pt does receive a PEG tube, which he is requesting at this time, will need to confirm can still accept pt. CM will cont to follow. Date Signed: 04/04/2017 05:42 PM Electronically Signed By:Chrissy Buckner RN [facility] CM Progress Note CM Note CM Note Notes: Contacts made Molly Gifford regarding patient's Decisional Capacity. Spoke to the LYNDSAY who reports that his decisions at the facility were limited and geared to wanting to eat and smoke "yes". DON reported that she and the facility SWer did not feel that the patient was decisional. The last physician who saw patient thought that he needed a palliative consult leading to Hospice and was going to make an APS call to ask for Guardianship. Patient became hospitalized and these reports weren't made. Patient has pulled out an N-G feeding tube. His MOST form written in 2016 states that he does not want artificial feeding and that he wanted to be Full COR. Asked Markie Gifford to have Jeffry Blackwood NP who signed the MOST form to call to share her thoughts about the patient's wishes. Have not heard back from her. Ethis and [facility] Legal have been involved. Patient was transferred to . Date Signed: 04/07/2017 05:58 PM Electronically Signed By:Evelin Garrison [facility] Progress Note Note CM Note Notes: 04/08/2017 Case Management Note: Attended care conference with Chapo Blanco from legal, Ladan Sanchez from ethics, Ramin Pinto from Ethics and Twila RODRIGUEZ from Palliative. Please see respective notes for details. Case Management faxed referral to [facility]. Spoke w/ [facility] community health coordinator, full code status will not impede hospice initiation. [facility] evaluating pt for appropriateness of placement in hospice program. Case Management waiting to hear from [facility]. RN notified of outcome of meeting. Case Management to follow. Date Signed: 04/08/2017 02:12 PM Electronically Signed By:Talya Gonzales RN [facility] CM Progress Note CM Note CM Note Notes: [facility] in this AM and met w/ pt. Pt reported to [facility] that he is not ready for hospice and he wants to be a full code. [facility] does not think pt is appropriate for hospice at this time because pt is refusing hopsice. CM called Enriqueta and provided updates. Pt will most likely discharge back to [facility] when medically stable. CM to follow. Date Signed: 04/09/2017 12:41 PM Electronically Signed By:XAVIER Huang [facility] CM Progress Note CM Note CM Note Notes: Reviewed chart re: d/c poc, pt's progress. Per MD notes, pt w/ decline in mental status, hypotension and worsening resp failure today. Comfort measures initiated as MD feels is imminent. Spoke w/ LANA Connors, she reported similar information. Staff attempted to alert pt's mother, but she is currently refusing all phone calls from [facility]. Call placed to Enriqueta at [facility]; [facility], awaiting c/b. Offered support and to alert additional family, Dory reports there is no one else to notify; additional support not needed at this time. CM will cont to follow. Date Signed: 04/11/2017 05:54 PM Electronically Signed By:Chrissy Buckner RN [facility] CM Progress Note CM Note CM Note Notes: Patient continues to decline, no longer talking. Patient has been made Comfort Care here at [facility]. Hospitalist would like to get him somewhere comfortable with Hospice Care. Contacted [facility] and [facility] and made a referral. Date Signed: 04/12/2017 11:45 AM Electronically Signed By:Evelin Garrison LCSW [facility] CM Progress Note CM Note CM Note Notes: Ramin from ethics was able to find a medical proxy for pt. Medical proxy is Dr. Lorenzo Flaherty, P#: [phone]. Pt is a DNR and currently on comfort measures. CM to follow. Date Signed: 04/13/2017 04:54 PM Electronically Signed By:XAVIER Huang Intervention Information
== END 2017-04-14 05:23 | disposition expired | DRG 853 ==
LOC: EDUNIT# → F2N 18:28 → F2W 04-07 15:05 → F1N 04-09 19:43 → F2N 04-10 11:28 → F3E 04-12 16:02
PROVIDERS: ADMIT Internal Medicine; ATTEND Internal Medicine
PROC: 0B938ZZ Drainage of Right Main Bronchus, Via Natural or Artificial Opening Endoscopic (ICD-10-PCS; principal; 2017-03-29)
PROC: 0B9L8ZZ Drainage of Left Lung, Via Natural or Artificial Opening Endoscopic (ICD-10-PCS; principal; 2017-03-29)
PROC: 0BH17EZ Insertion of Endotracheal Airway into Trachea, Via Natural or Artificial Opening (ICD-10-PCS; 2017-03-29)
PROC: 5A1945Z Respiratory Ventilation, 24-96 Consecutive Hours (ICD-10-PCS; 2017-03-29)
PROC: 02H633Z Insertion of Infusion Device into Right Atrium, Percutaneous Approach (ICD-10-PCS; 2017-03-30)
PROC: 0DH68UZ Insertion of Feeding Device into Stomach, Via Natural or Artificial Opening Endoscopic (ICD-10-PCS; 2017-03-30)
PROC: 0B9L8ZZ Drainage of Left Lung, Via Natural or Artificial Opening Endoscopic (ICD-10-PCS; 2017-04-02)
PROC: 0B918ZZ Drainage of Trachea, Via Natural or Artificial Opening Endoscopic (ICD-10-PCS; 2017-04-02)
PROC: 0B978ZZ Drainage of Left Main Bronchus, Via Natural or Artificial Opening Endoscopic (ICD-10-PCS; 2017-04-02)
PROC: 0B978ZZ Drainage of Left Main Bronchus, Via Natural or Artificial Opening Endoscopic (ICD-10-PCS; 2017-04-03)
DX: A41.9 Sepsis, unspecified organism (principal); J96.21 Acute and chronic respiratory failure with hypoxia; J69.0 Pneumonitis due to inhalation of food and vomit; E43 Unspecified severe protein-calorie malnutrition; G93.49 Other encephalopathy; L89.153 Pressure ulcer of sacral region, stage 3; J98.11 Atelectasis; Z68.1 Body mass index [BMI] 19.9 or less, adult; R13.10 Dysphagia, unspecified; R56.9 Unspecified convulsions; R65.20 Severe sepsis without septic shock; D64.9 Anemia, unspecified; E87.6 Hypokalemia; L89.150 Pressure ulcer of sacral region, unstageable; J44.9 Chronic obstructive pulmonary disease, unspecified; L89.810 Pressure ulcer of head, unstageable; I10 Essential (primary) hypertension; Z87.820 Personal history of traumatic brain injury; Z99.3 Dependence on wheelchair; Z72.0 Tobacco use; Z51.5 Encounter for palliative care; Z66 Do not resuscitate
CPT/HCPCS: 82947-QW; 83519-59; 83520-90; 92610-GN; 92611-GN; 96374; C1751; J0330; J1335; J1650; J2060; J2185; J2250; J2704; J3010; J3370; P9047; Q9967